=== PATIENT | female | born 1950 | race Caucasian/White ===

== ENCOUNTER → 2018-02-11 14:00 | Outpatient (CLI) | payer MEDICARE, SELFPAY | PROVIDERS: PCP Nurse Practitioner Family; Visit Provider Student in an Organized Health Care Education/Training Program | DX: T84.53XD Infection and inflammatory reaction due to internal right knee prosthesis, subsequent encounter (principal); Z96.651 Presence of right artificial knee joint; M76.31 Iliotibial band syndrome, right leg | CPT/HCPCS: 99213 ==

== ENCOUNTER → 2018-04-01 11:12 | Outpatient (BNVA) | payer MEDICARE, SELFPAY | PROVIDERS: PCP Nurse Practitioner Family; Referring Provider Nurse Practitioner Family; Visit Provider Student in an Organized Health Care Education/Training Program | DX: T84.53XD Infection and inflammatory reaction due to internal right knee prosthesis, subsequent encounter (principal); Z96.651 Presence of right artificial knee joint; M25.561 Pain in right knee | CPT/HCPCS: 99213 ==

== ENCOUNTER → 2018-04-29 10:28 | Outpatient (BNVA) | payer MEDICARE, SELFPAY | PROVIDERS: PCP Nurse Practitioner Family; Referring Provider Nurse Practitioner Family; Visit Provider Student in an Organized Health Care Education/Training Program | DX: T84.53XA Infection and inflammatory reaction due to internal right knee prosthesis, initial encounter (principal); M25.561 Pain in right knee | CPT/HCPCS: 99213 ==

== ENCOUNTER 2018-07-22 10:29 | Outpatient (CLI) | payer MEDICARE, SELFPAY ==
--- NOTE | 2018-07-22 13:15 | DI.RAD_ITS ---
SYMPTOMS/DIAGNOSIS: F/U RIGHT TKA RIGHT KNEE: Comparison is made with July,. There has been no change in the appearance of the right total knee prosthesis or surrounding bone. No joint effusion is visible. IMPRESSION: Stable total knee prosthesis.
== END 2018-07-22 10:49 ==
PROVIDERS: PCP Nurse Practitioner Family; Visit Provider Student in an Organized Health Care Education/Training Program
DX: M17.11 Unilateral primary osteoarthritis, right knee (principal); Z96.651 Presence of right artificial knee joint; Z47.1 Aftercare following joint replacement surgery
CPT/HCPCS: 99213; 73560

== ENCOUNTER 2018-07-22 13:09 | Outpatient (CLI) | payer MEDICARE, SELFPAY | END 2018-07-22 13:29 | PROVIDERS: PCP Nurse Practitioner Family; Referring Provider Nurse Practitioner Family; Visit Provider Student in an Organized Health Care Education/Training Program | DX: M17.11 Unilateral primary osteoarthritis, right knee (principal); T84.53XD Infection and inflammatory reaction due to internal right knee prosthesis, subsequent encounter; Z47.1 Aftercare following joint replacement surgery | CPT/HCPCS: 99213 ==

== ENCOUNTER 2018-11-16 13:23 | Outpatient (CLI) | payer MEDICARE, SELFPAY ==
--- NOTE | 2018-11-16 13:16 | DI.RAD_ITS ---
SYMPTOM/DIAGNOSIS: LT HIP AND LT KNEE PAIN LEFT HIP AND PELVIS: Comparison is made with 04/11/17. The hip joint spaces are well maintained. There is minimal periarticular spurring. Mild sclerosis is seen at the pubic symphysis. There is mild spurring at both SI joints. No bony erosions are seen. There is a lucency in the left iliac wing which may represent overlying bowel gas however it is seen on both views. CT could be performed for further evaluation. LEFT KNEE: There is slight narrowing of the medial femoral tibial joint space. There is no significant periarticular spurring. There is minimal spurring at the patellofemoral joint. There is also spurring at the quadriceps insertion on the patella. No joint effusion is seen. IMPRESSION: Minimal degenerative changes.
== END 2018-11-16 13:43 ==
PROVIDERS: PCP Nurse Practitioner Family; Referring Provider Nurse Practitioner Family; Visit Provider Student in an Organized Health Care Education/Training Program
DX: M25.552 Pain in left hip (principal); M25.562 Pain in left knee; M17.12 Unilateral primary osteoarthritis, left knee; M70.52 Other bursitis of knee, left knee
CPT/HCPCS: 20605; 20610; 73562; 99213; 99214; 73502; J1030; J1040

== ENCOUNTER 2019-01-25 14:17 | Outpatient (CLI) | payer MEDICARE, SELFPAY ==
[2019-01-25 15:51] LABS: Ferritin 65 ng/mL (8-388)
== END 2019-01-25 14:37 ==
PROVIDERS: PCP Nurse Practitioner Family; Visit Provider Nurse Practitioner
DX: M25.50 Pain in unspecified joint (principal)
CPT/HCPCS: 36415; 82728

== ENCOUNTER → 2019-02-08 14:05 | Outpatient (BNVA) | payer MEDICARE, SELFPAY | PROVIDERS: PCP Nurse Practitioner Family; Referring Provider Nurse Practitioner Family; Visit Provider Student in an Organized Health Care Education/Training Program | DX: M23.92 Unspecified internal derangement of left knee (principal) | CPT/HCPCS: 99213 ==

== ENCOUNTER 2019-02-12 07:00 | Outpatient (CLI) | payer MEDICARE, SELFPAY ==
--- NOTE | 2019-02-12 11:50 | DI.MRI_ITS ---
SYMPTOMS/DIAGNOSIS: LEFT KNEE PAIN, LIMITED MOTION MEDIALLY, LEFT KNEE OSTEOARTHRITIS, BURSITIS, KNEE LOCKS, SWELLS, MUSCLE SPASMS LEFT KNEE MRI: MRI examination of the knee was performed using chimney coil due to patient's body habitus and this limits the resolution of the scan. There is a moderate knee joint effusion and there is a small Call's cyst. No significant bony signal abnormality seen. Extensor mechanism grossly intact as visualized, but limited visualization of articular cartilage of the patella. Cruciate ligaments appear intact. There is suspected posterior horn to body medial meniscal tear. The lateral meniscus grossly intact. No significant collateral ligament injury seen. CONCLUSION: Limited scan. Suspect medial meniscal tear.
== END 2019-02-12 07:20 ==
PROVIDERS: PCP Nurse Practitioner Family; Visit Provider Student in an Organized Health Care Education/Training Program
DX: M25.462 Effusion, left knee (principal); M71.22 Synovial cyst of popliteal space [Baker], left knee
CPT/HCPCS: 73721

== ENCOUNTER → 2019-02-15 14:18 | Outpatient (BNVA) | payer MEDICARE, SELFPAY | PROVIDERS: PCP Nurse Practitioner Family; Referring Provider Nurse Practitioner Family; Visit Provider Student in an Organized Health Care Education/Training Program | DX: M23.92 Unspecified internal derangement of left knee (principal); M25.562 Pain in left knee | CPT/HCPCS: 20610; 99213; J1040 ==

== ENCOUNTER 2019-02-15 15:22 | Outpatient (CLI) | payer MEDICARE, SELFPAY ==
[2019-02-15 15:47] LABS: HCT 40.4 % (36.0-46.0); Mean Corp. HGB Concentration 32.2 g/dL (32.0-36.0); Mean Corpuscular Hemoglobin 28.6 pg (27.0-33.0); Mean Corpuscular Volume 88.8 fL (80-95); Mean Platelet Volume 8.8 fL (8.0-11.0); Platelet Count 302 x1000/uL (130-400); RBC 4.55 m/cumm (4.00-5.20); RBC Distribution Width 12.7 % (11.7-14.6)
[2019-02-15 17:42] LABS: ESR 18 mm/hr (0-30)
[2019-02-16 10:50] LABS: Rheumatoid Factor <8 IU/mL (<12.5)
[2019-02-16 14:24] LABS: ANA Interpretation Negative (NEGAT)
== END 2019-02-15 15:42 ==
PROVIDERS: PCP Nurse Practitioner Family; Visit Provider Student in an Organized Health Care Education/Training Program
DX: M25.562 Pain in left knee (principal); M23.92 Unspecified internal derangement of left knee
CPT/HCPCS: 20610; 36415; 85027; 85652; 99213; 86038; 86431; J1040

== ENCOUNTER → 2019-03-29 13:27 | Outpatient (BNVA) | payer MEDICARE, SELFPAY | PROVIDERS: PCP Nurse Practitioner; Referring Provider Nurse Practitioner Family; Visit Provider Student in an Organized Health Care Education/Training Program | DX: M17.12 Unilateral primary osteoarthritis, left knee (principal) | CPT/HCPCS: 99212; 99213 ==

== ENCOUNTER 2019-04-26 01:17 | Outpatient (CLI) | payer MEDICARE, SELFPAY ==
--- NOTE | 2019-04-26 14:45 | DI.MAMMO_ITS ---
EXAM: MAMMO SCREENING CLINICAL HISTORY: screening,z12.39 TECHNIQUE: Mammograms were interpreted according to the usual protocol including computer analysis w [employer] CAD system, tomosynthesis and C-view imaging. COMPARISON: [id number] FINDINGS: The breasts are composed of heterogeneously dense tissue, which may obscure small masses, breast dens ity category C. There are no suspicious masses or suspicious microcalcifications. There has been no significant chagne when compared with prior images. IMPRESSION: Category 1, negative mammogram. Routine yearly screening is recommended. BI-RADS Cat 1 - Negative Breast Density - Category C - Heterogeneously dense
== END 2019-04-26 01:37 ==
PROVIDERS: PCP Nurse Practitioner; Visit Provider Nurse Practitioner
DX: Z12.31 Encounter for screening mammogram for malignant neoplasm of breast (principal)
CPT/HCPCS: 77063; 77067

== ENCOUNTER 2019-05-27 13:54 | Outpatient (CLI) | payer MEDICARE, SELFPAY ==
--- NOTE | 2019-05-27 14:00 | DI.RAD_ITS ---
EXAM: XR CHEST 2V PA AND LATERAL CLINICAL HISTORY: cough, upper respiratory infection, J06.9. TECHNIQUE: 2D digital imaging was performed. COMPARISON: PORTABLE CHEST ONE VIEW from 08/10/2017 FINDINGS: LUNGS: Clear. No pleural abnormality seen. HEART: Normal. MEDIASTINUM: Normal. OTHER FINDINGS:Normal. IMPRESSION: No acute pulmonary findings.
== END 2019-05-27 14:14 ==
PROVIDERS: PCP Nurse Practitioner; Visit Provider Internal Medicine
DX: J06.9 Acute upper respiratory infection, unspecified (principal); R05 Cough
CPT/HCPCS: 71046

== ENCOUNTER 2019-05-30 15:34 | Emergency (ER) | payer MEDICARE, SELFPAY ==
[2019-05-30 15:56] VITALS: BP 164/86; PULSE 80; RESP 18; TEMP 36.6; O2SAT 98
--- NOTE | 2019-05-30 16:28 | ED.GENADUL_ITS ---
Discharge Plan Disposition Patient Disposition: HOME Condition: Stable Discharge Details Chief Complaint: Orthopedic Clinical Impression: Primary osteoarthritis of left knee Primary Care Provider: Katie Schafer ED Provider: Diogo Driscoll Home Meds and New Rx's Prescriptions: Continued aspirin [Adult Low Dose Aspirin] 81 mg tablet,delayed release (DR/EC) 81 mg PO DAILY RF: 0 hydroxyzine HCl 25 mg tablet 12.5 mg PO HS PRN (Reason: itching) Qty: 90 RF: 3 pantoprazole [Protonix] 40 mg tablet,delayed release (DR/EC) 40 mg PO DAILY Qty: 90 RF: 3 paroxetine HCl 40 mg tablet 40 mg PO DAILY Qty: 90 RF: 3 mometasone [Nasonex] 50 mcg/actuation spray,non-aerosol 2 spray NS DAILY Qty: 3 RF: 3 azithromycin 250 mg tablet See Rx Instructions PO .COMPLEX Qty: 6 RF: 0 doxycycline hyclate 100 mg tablet 100 mg PO BID Qty: 14 RF: 0 multivitamin [Multi-Day] 1 EACH tablet 1 ea PO DAILY RF: 0 calcium carbonate-vitamin D3 1 EACH tablet 1 ea PO DAILY RF: 0 VITAMIN B COMPLEX 1 EACH tablet 1 ea PO DAILY RF: 0 Cane Qty: 1 RF: 0 acetaminophen [Mapap Extra Strength] 500 MG tablet 1,000 mg PO Q8H Qty: 100 RF: 3 sennosides [Senokot] 1 TAB tablet 1 tab PO BID PRN PRNRF: 0 Discharge Instructions Instructions: Osteoarthritis (ED) Additional Instructions: I placed you on our follow up list to try and expedite an appointment with orthopedics you can take 1000mg tylenol every 6 hours try using lidocaine patches if you have high fevers, redness of the knee or you feel more ill return to the emergency department Medical Decision Making 68 yo female with hx of osteoarthritis in the left knee and prior right knee replacement complicated by infection who comes in with chief complaint of left knee pain for months. Has had injections in the past that have helped with ortho last being in the summer. Denies any falls, trauma, rashes or fevers/chills. She has an effusion on exam of the left knee without erythema, warmth and does have full rom of the knee. Has pain with palpation to the anterior knee. I suspect her pain is due to her osteoarthritis and will have her f/u with ortho for possible repeat injection. No findings on exam to suggest septic joint so do not feel arthrocentesis indicated. No trauma so doubt fracture and do not feel xray indicated. Will d/c with return precautions Differential Diagnosis Differential Diagnosis: osteoarthritis, RA HPI General Mode of arrival: wheelchair . Date/Time Provider Initiated Documentation: 05/30/19 15:36 . Limitations to Documentation: no limitations . Information obtained by: patient . History of Present Illness 68 year old F presents to the emergency department with the chief complaint of left knee pain, described as moderate, Quality is described as aching, Patient started experiencing this month(s) (2) and it has been constant. No relieving factors improve symptom(s), No exacerbating factors reported . Related Data Home Medications Medication Instructions Recorded Confirmed calcium carbonate-vitamin D3 1 ea PO DAILY 10/10/12 05/30/19 multivitamin [Multi-Day] 1 ea PO DAILY 10/10/12 05/30/19 Vitamin B Complex 1 ea PO DAILY 04/26/13 05/19/19 acetaminophen [Mapap Extra 1,000 mg PO Q8H #100 tab 07/10/17 05/30/19 Strength] sennosides [Senokot] 1 tab PO BID PRN PRN tab 08/14/17 05/30/19 aspirin 81 mg tablet,delayed 81 mg PO DAILY 03/26/19 05/30/19 release hydroxyzine HCl 25 mg tablet 12.5 mg PO HS PRN #90 tab 03/26/19 05/30/19 mometasone 50 mcg/actuation nasal 2 spray NS DAILY #3 spray 03/26/19 05/30/19 spray pantoprazole 40 mg tablet,delayed 40 mg PO DAILY #90 tab 03/26/19 05/30/19 release paroxetine HCl 40 mg tablet 40 mg PO DAILY #90 tab 03/26/19 05/30/19 azithromycin 250 mg tablet See Rx Instructions PO .COMPLEX #6 05/19/19 05/30/19 tab doxycycline hyclate 100 mg tablet 100 mg PO BID #14 tab 05/24/19 05/30/19 Previous Rx's Medication Instructions Recorded acetaminophen [Mapap Extra 1,000 mg PO Q8H #100 tab 07/10/17 Strength] sennosides [Senokot] 1 tab PO BID PRN PRN tab 08/14/17 hydroxyzine HCl 25 mg tablet 12.5 mg PO HS PRN #90 tab 03/26/19 mometasone 50 mcg/actuation nasal 2 spray NS DAILY #3 spray 03/26/19 spray pantoprazole 40 mg tablet,delayed 40 mg PO DAILY #90 tab 03/26/19 release paroxetine HCl 40 mg tablet 40 mg PO DAILY #90 tab 03/26/19 azithromycin 250 mg tablet See Rx Instructions PO .COMPLEX #6 05/19/19 tab doxycycline hyclate 100 mg tablet 100 mg PO BID #14 tab 05/24/19 Allergies Allergy/AdvReac Type Severity Reaction Status Date / Time Sulfa (Sulfonamide Allergy Mild PRURITIS Unverified 05/30/19 15:59 Antibiotics) amoxicillin trihydrate AdvReac Severe DIARRHEA Unverified 05/30/19 15:59 [From Augmentin] morphine AdvReac Severe HEART Unverified 05/30/19 15:59 PALPITATIONS General Stated Complaint: Orthopedic DUSTY: 4 Review of Systems All systems reviewed & are unremarkable except as noted in HPI and below Constitutional Constitutional: Denies chills, Denies fever(s) and Denies weakness Cardiovascular Cardiovascular: Denies chest pain and Denies dyspnea Respiratory Respiratory: Denies dyspnea Gastrointestinal Gastrointestinal: Denies abdominal pain, Denies nausea and Denies vomiting Neurologic Neurologic: Denies weakness [facility] [place] Social History Smoking/Tobacco Use Status: Never Alcohol Intake: never Drug use: Never Household members: spouse Housing: house Communication Needs: Corrective Lenses Do you need help understanding health information?: Often Sexually active: Yes Do you think of yourself as: straight/heterosexual Current gender identity: female What is your relationship status?: Panel score (0-1 are the most socially isolated patients): 1 Do you feel safe at home: Yes Do you feel safe in your relationship?: Yes Exam Const General: no acute distress Orientation: alert HENMT Head: normal to inspection Ears: external ears normal General nose exam: external nose normal Mouth: moist mucous membranes Eyes General: appearance normal, both eyes and all related structures Neck Neck: normal visual inspection Resp Effort & Inspection: normal respiratory effort and able to speak in complete sentences Cardio Rate: regular rate Skin General skin exam: no rashes or lesions noted Neuro General: alert and oriented x3 Extrem General: full ROM and normal capillary refill Psych Mental Status: mental status grossly normal Course Vital Signs Vital signs: Vital Signs Temperature 36.6 C 05/30/19 15:56 Pulse 80 05/30/19 15:56 Respiratory Rate 18 05/30/19 15:56 Blood Pressure 164/86 H 05/30/19 15:56 Pulse Oximetry 98 05/30/19 15:56 Temperature 36.6 C 05/30/19 15:56 Temperature Source Temporal Artery Scan 05/30/19 15:56 Pulse 80 05/30/19 15:56 Respiratory Rate 18 05/30/19 15:56 Respiratory Effort Non-Labored 05/30/19 15:56 Blood Pressure 164/86 H 05/30/19 15:56 Blood Pressure Position Sitting 05/30/19 15:56 Pulse Oximetry 98 05/30/19 15:56 Oxygen Delivery Method Room Air 05/30/19 15:56 Oxygen Flow Rate 0 05/30/19 15:56 Pain Level 8 05/30/19 15:56 Comment 05/30/19 15:56
[2019-05-30] MEDS: Lidocaine 5% Patch 1 PATCH TP (16:35)
== END 2019-05-30 16:40 | disposition home or self-care (01) ==
PROVIDERS: Emergency Provider Emergency Medicine; PCP Nurse Practitioner
DX: M17.12 Unilateral primary osteoarthritis, left knee (principal); M25.462 Effusion, left knee
CPT/HCPCS: 99283

== ENCOUNTER 2019-06-10 08:20 | Outpatient (CLI) | payer MEDICARE, SELFPAY ==
--- NOTE | 2019-06-10 08:37 | DI.RAD_ITS ---
EXAM: XR KNEE LT 4V AP,LAT,STEPH,PAT INDICATION: new left knee pain after fall. TECHNIQUE: 2D digital imaging was performed. FINDINGS: The joint spaces are well maintained. There is minimal periarticular spurring. Spurring is noted at the quadriceps insertion on the patella. There is a tiny focus of air in the suprapatellar region which could be secondary to joint injection. IMPRESSION: Mild degenerative changes.
== END 2019-06-10 08:40 ==
PROVIDERS: PCP Nurse Practitioner; Referring Provider Nurse Practitioner; Visit Provider Student in an Organized Health Care Education/Training Program
DX: M25.562 Pain in left knee (principal); M17.12 Unilateral primary osteoarthritis, left knee; M23.92 Unspecified internal derangement of left knee
CPT/HCPCS: 20610; 99213; 73564; J1040

== ENCOUNTER 2019-06-10 08:54 | Outpatient (REF) | payer MEDICARE, SELFPAY ==
[2019-06-10 10:00] LABS: Clarity CLEAR; Mononuclear Cells 91 % (0-0); Nucleated Cells 607 /MM3 (0-0); Polynuclear Cells 9 % (0-0); Source L KNEE
== END 2019-06-10 09:14 ==
LOC: LBN 08:54
PROVIDERS: PCP Nurse Practitioner; Visit Provider Student in an Organized Health Care Education/Training Program
DX: M25.562 Pain in left knee (principal)
CPT/HCPCS: 87070; 87205; 89051; 89060

== ENCOUNTER 2019-06-21 01:02 | Outpatient (CLI) | payer MEDICARE, SELFPAY ==
--- NOTE | 2019-06-21 10:51 | DI.MRI_ITS ---
EXAM: MR LOWER JOINT LT WO CLINICAL HISTORY: PAIN, INTERNAL DERANGEMENT, M23.92. TECHNIQUE: Multiplanar multisequence MRI was performed. COMPARISON: MRI - BRAIN WO CONTRAST from 08/22/2014 XR KNEE LT 4V AP,LAT,STEPH,PAT from 06/10/2019 FINDINGS: There is a small joint effusion and tiny Call's cyst. The cruciate and collateral ligaments and ext ensor mechanism appear intact. There is some edema seen anterior to the patella. The findings do yuridia ear stable when compared with the previous exam. There are degenerative signal changes in both menis ci but no visible focal tear. There is peripheral displacement of the medial meniscus, consistent wi th degenerative change. There is mild spurring from the medial femoral condyle and medial tibial darcy teau. There is cartilage thinning over the medial femoral condyle and medial tibial plateau. There is mild adjacent bone edema. The findings appear similar to the previous exam. IMPRESSION: Small joint effusion and tiny Call's cyst. 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 No evidence of an internal derangement.
== END 2019-06-21 01:22 ==
PROVIDERS: PCP Nurse Practitioner; Visit Provider Student in an Organized Health Care Education/Training Program
DX: M25.562 Pain in left knee (principal); M23.92 Unspecified internal derangement of left knee; M25.462 Effusion, left knee; M71.22 Synovial cyst of popliteal space [Baker], left knee; M17.12 Unilateral primary osteoarthritis, left knee; M94.262 Chondromalacia, left knee
CPT/HCPCS: 73721

== ENCOUNTER → 2019-07-15 10:25 | Outpatient (BNVA) | payer MEDICARE, SELFPAY | PROVIDERS: PCP Nurse Practitioner; Referring Provider Nurse Practitioner; Visit Provider Student in an Organized Health Care Education/Training Program | DX: S83.242A Other tear of medial meniscus, current injury, left knee, initial encounter (principal); X50.0XXA Overexertion from strenuous movement or load, initial encounter | CPT/HCPCS: 99213 ==

== ENCOUNTER 2019-07-23 11:01 | Day surgery (SDC) | payer MEDICARE, SELFPAY ==
[2019-07-23] VITALS (7 sets, daily range): BP systolic 109–155; BP diastolic 46–83; PULSE 82–97; RESP 11–16; TEMP 36.1–36.3; O2SAT 94–98
[2019-07-23] MEDS: Lactated Ringers 1,000 ML 80 ML IV (11:41)
[2019-07-23] MEDS: ceFAZolin 2 GM/50 ML BAG IVPB (13:35)
[2019-07-23] MEDS: EPINEPHrine 30 MG/30 ML VIAL (13:58)
[2019-07-23] MEDS: Bupivacaine 0.5% Pres-Free 30 ML VIAL (13:59)
--- NOTE | 2019-07-23 14:28 | W.PM.DSUDISC ---
Discharge Plan Disposition Patient Disposition: HOME Condition: Good Discharge Details Reason For Visit: L medial meniscus tear Attending Provider: Frandy Trevino Primary Care Provider: Katie Schafer Home Meds and New Rx's Prescriptions: New hydrocodone-acetaminophen 5-325 mg tablet 1 tab PO Q8H PRN PRN (Reason: pain) Qty: 6 RF: 0 meloxicam 7.5 mg tablet 7.5 mg PO BID Qty: 60 RF: 0 Continued aspirin [Adult Low Dose Aspirin] 81 mg tablet,delayed release (DR/EC) 81 mg PO DAILY RF: 0 hydroxyzine HCl 25 mg tablet 12.5 mg PO HS PRN (Reason: itching) Qty: 90 RF: 3 pantoprazole [Protonix] 40 mg tablet,delayed release (DR/EC) 40 mg PO DAILY Qty: 90 RF: 3 paroxetine HCl 40 mg tablet 40 mg PO DAILY Qty: 90 RF: 3 mometasone [Nasonex] 50 mcg/actuation spray,non-aerosol 2 spray NS DAILY Qty: 3 RF: 3 multivitamin [Multi-Day] 1 EACH tablet 1 ea PO DAILY RF: 0 calcium carbonate-vitamin D3 1 EACH tablet 1 ea PO DAILY RF: 0 VITAMIN B COMPLEX 1 EACH tablet 1 ea PO DAILY RF: 0 Cane Qty: 1 RF: 0 sennosides [Senokot] 1 TAB tablet 1 tab PO BID PRN PRNRF: 0 ascorbic acid (vitamin C) [Vitamin C] 1,000 mg Tablet 1,000 mg PO PRN PRNRF: 0 Changed acetaminophen [Mapap Extra Strength] 500 MG tablet 500 mg PO Q6H Qty: 100 RF: 3 Discharge Instructions Additional Instructions: Activity: You should begin moving as soon as possible. You may work on flexion but also equally maintain extension. You may bear weight as tolerated, using crutches only for support/comfort. You should apply ice to help with swelling and elevate when possible (especially in the first few days). You should apply ice to assist with swelling and pain. Medications: - Rarely does this require any stronger pain medications, but it may for the first few days or with PT. Hydrocodone has been called in. - Recommend to take up to 500mg of Acetaminophen (Tylenol) every 6 hours and Meloxciam 7.5mg twice a day as needed. Follow-up: 10-14 days Referrals: Frandy Trevino MD [ [facility] STAFF PHYSICIAN] - Equipment/Supplies: Partial Weight Bearing Crutches Activity:: Elevate Remove Dressings/Wound Care:: 72 hours Shower/Bathe:: 72 hours Diet:: As Tolerated Discharge Orders Discharge Orders: Discharge Order (Routine); Ordered 07/23/19 Ordered By: Frandy Trevino DS: Diagnosis Discharge Diagnosis (1) Acute medial meniscal injury of left knee: Status: Acute
--- NOTE | 2019-07-23 21:59 | W.PM.OP ---
Date of service: 07/23/19 Time of Service: 14:59 Operative Note Operative Note DATE OF PROCEDURE: 07/23/19 PRE-OP DIAGNOSIS: Left knee medial meniscal tear POST-OP DIAGNOSIS: same PROCEDURE: Left knee partial medial meniscectomy SURGEON: Frandy Trevino ANESTHESIA: GETA ESTIMATED BLOOD LOSS: 0 PATHOLOGY: none sent COMPLICATIONS: None Patient was transported to: PACU Patient's condition: stable Indications: I have seen Laura in clinic for symptoms of a meniscus tear. This was confirmed based on MRI and exam findings. Nonoperative measures were exhausted but disability and pain persisted. I discussed knee arthroscopy with meniscal intervention with the patient. I reviewed the risks of the procedure to include, but not limited to, bleeding, infection, pain, stiffness, damage to nerves or vessels, recurrence, blood clot. Despite these risks, the patient elected to proceed. Findings: A diagnostic arthroscopy was performed with the following findings: Suprapatellar Pouch: No significant inflammation, no loose bodies Medial Compartment: Complex medial meniscal tear, intact meniscal root, some mild fissuring and fraying representing grade 1 changes with some focal areas of grade II chondromalacia, no loose bodies Notch: ACL and PCL were intact Lateral Compartment: No meniscal tear, intact meniscal root, no significant chondromalacia or signs of arthritis, no loose bodies Patellofemoral Compartment: Mild chondral changes seen over the patella, mainly at the apex, no apparent patellar maltracking Procedure Description: Laura was greeted in the preoperative holding area where the correct side was identified and marked. The consent was reviewed with the patient and signed. The history and physical was updated. All questions were answered. Laura was taken back to the operating room. The patient was placed into the supine position on the operating room table. A nonsterile tourniquet was placed high onto the leg but not used. All bony prominences were well padded. Prophylactic antibiotics in the form of cefazolin were administered. The left leg was then prepped with Chloraprep and draped in a standard fashion with stockinette and extremity drape. A timeout to confirm correct identity, side and site, procedure, allergies, anesthesia, and medical concerns was performed. The leg was placed into a pneumatic leg chopra, [id number]. A standard lateral portal was made at the lateral border of the patella tendon in line with the inferior pole of the patella, soft spot. The skin and deep tissue was incised sharply and the blunt trochar was inserted atraumatically. A diagnostic arthroscopy was performed and the findings are listed above. The suprapatellar pouch had no significant inflammatory change. The patellofemoral articulation showed mild arthritic changes over the apex as well as good tracking. The lateral gutter had no loose bodies and the medial gutter had no loose bodies. The knee was brought into some valgus stress in extension to open the medial compartment. A medial portal was made, localized by a spinal needle. The portal was created with an #11 blade through skin and capsule under direct visualization avoiding any meniscal injury. A probe was then inserted into the medial compartment. The medial compartment was fully inspected. The chondral surface of the tibia showed minimal cartilage changes and the surface of the femur showed some grade I/II chondromalacia. The medial meniscus had a complex meniscal tear involving the posterior horn with both a larger radial component and a horizontal component with some fraying. After evaluation, the meniscus was debrided down to a stable base using a series of biters and arthroscopic gonzalo. It was probed afterwards to confirm that the tear had been removed and the meniscus was stable. The notch was then inspected which showed an intact ACL and an intact PCL. The leg was then brought into a figure of 4 position. The lateral compartment was fully inspected with the arthroscope and a probe. The chondral surface of the lateral femur showed no significant chondromalacia. The chondral surface of the lateral tibia showed no significant chondromalacia. The lateral meniscus had no meniscal tear. The arthroscope was brought back into the suprapatellar pouch and the leg was in full extension. The knee was thoroughly irrigated with the arthroscopic fluid on high flow and pressure. Inflow was stopped and excess fluid was removed. The wounds were closed with 4-0 Nylon. They were dressed with Xeroform, 4x4 gauze, ABD pad, Kerlix and an AFSHAN wrap. A cryo-cuff was applied. The patient tolerated the procedure well and was returned to the Same Day Surgery area in a stable condition suffering no known complication.
== END 2019-07-23 16:10 | disposition home or self-care (01) ==
PROVIDERS: PCP Nurse Practitioner; Visit Provider Student in an Organized Health Care Education/Training Program
PROC: (CPT 29870; principal; 2019-07-23 14:00)
DX: S83.232A Complex tear of medial meniscus, current injury, left knee, initial encounter (principal); X50.1XXA Overexertion from prolonged static or awkward postures, initial encounter; M94.262 Chondromalacia, left knee; K21.9 Gastro-esophageal reflux disease without esophagitis
CPT/HCPCS: 29881; J0131; J0690; J1100; J1885; J2001; J2405; J2704; J3010

== ENCOUNTER → 2019-08-06 09:37 | Outpatient (BNVA) | payer MEDICARE, SELFPAY | PROVIDERS: PCP Nurse Practitioner; Referring Provider Nurse Practitioner; Visit Provider Student in an Organized Health Care Education/Training Program | DX: S83.242D Other tear of medial meniscus, current injury, left knee, subsequent encounter (principal); X58.XXXD Exposure to other specified factors, subsequent encounter ==

== ENCOUNTER → 2019-08-27 09:46 | Outpatient (BNVA) | payer MEDICARE, SELFPAY | PROVIDERS: PCP Nurse Practitioner; Referring Provider Nurse Practitioner; Visit Provider Student in an Organized Health Care Education/Training Program | DX: S83.8X2D Sprain of other specified parts of left knee, subsequent encounter (principal); X58.XXXD Exposure to other specified factors, subsequent encounter; M17.12 Unilateral primary osteoarthritis, left knee | CPT/HCPCS: 20610; J1040 ==

== ENCOUNTER → 2019-10-29 10:26 | Outpatient (BNVA) | payer MEDICARE, SELFPAY | PROVIDERS: PCP Nurse Practitioner; Referring Provider Nurse Practitioner; Visit Provider Student in an Organized Health Care Education/Training Program | DX: S83.8X2D Sprain of other specified parts of left knee, subsequent encounter (principal); X58.XXXD Exposure to other specified factors, subsequent encounter; M17.12 Unilateral primary osteoarthritis, left knee; M70.52 Other bursitis of knee, left knee; Z98.890 Other specified postprocedural states | CPT/HCPCS: 99213 ==

== ENCOUNTER → 2019-12-31 10:52 | Outpatient (BNVA) | payer OTHER, SELFPAY | PROVIDERS: PCP Nurse Practitioner; Referring Provider Nurse Practitioner; Visit Provider Student in an Organized Health Care Education/Training Program | DX: S83.8X2D Sprain of other specified parts of left knee, subsequent encounter (principal); X58.XXXD Exposure to other specified factors, subsequent encounter | CPT/HCPCS: 99213 ==

== ENCOUNTER 2020-03-23 03:48 | Outpatient (CLI) | payer MEDICARE, SELFPAY ==
[2020-03-23 11:35] LABS: Hemoglobin A1C 5.4 % (<5.7)
[2020-03-23 12:30] LABS: Calculated LDL 160 mg/dL (<100); Cholesterol 250 mg/dL (<200); HDL Cholesterol 49 mg/dL (40-60); Triglyceride 205 mg/dL (<150)
== END 2020-03-23 04:08 ==
PROVIDERS: PCP Nurse Practitioner; Visit Provider Nurse Practitioner
DX: E78.5 Hyperlipidemia, unspecified (principal); E16.2 Hypoglycemia, unspecified
CPT/HCPCS: 36415; 80061; 83036

== ENCOUNTER 2020-04-28 02:57 | Outpatient (CLI) | payer MEDICARE, SELFPAY ==
--- NOTE | 2020-04-28 08:15 | DI.MAMMO_ITS ---
EXAM: MAMMO SCREENING CLINICAL HISTORY: screening,Z12.39 TECHNIQUE: Mammograms were interpreted according to the usual protocol including computer analysis w [employer] CAD system, tomosynthesis and C-view imaging. COMPARISON: 2010 through 2018 FINDINGS: The breasts are composed of heterogeneously dense fibroglandular densities, Breast Density category C . No suspicious masses or suspicious microcalcifications are seen. There is a benign-appearing circums cribed nodule seen in the upper outer quadrant of the left breast. No skin thickening or abnormal axillary lymph nodes are seen. There has been no significant change from prior exams. IMPRESSION: BI-RADS Cat 2 - Benign Findings Yearly screening mammography is recommended. Breast Density Category C, heterogeneously Dense. The mammogram demonstrates the patient's breast tissue is dense. Dense breast tissue is very common a nd is not abnormal but dense breast tissue can make it harder to find cancer on a mammogram. Also, de nse breast tissue may increase breast cancer risk. This information about the result of the mammogram report was provided to the patient to raise their awareness. Use this report when you speak with the patient about their risks for breast cancer, which includes their family history. At that time, you may recommend additional screening tests (Ultrasound or MRI) as they might be useful based on their r isk. A negative radiographic report should not delay biopsy if a dominant or clinically suspicious mass is present. Up to ten percent of cancers are not identified on mammography. A negative report may reinforce clinical impression. Adenosis and dense breasts may obscure an underlying neoplasm. False positive reports average 6 to 10%.
== END 2020-04-28 03:17 ==
PROVIDERS: PCP Nurse Practitioner; Visit Provider Nurse Practitioner
DX: Z12.31 Encounter for screening mammogram for malignant neoplasm of breast (principal); N63.21 Unspecified lump in the left breast, upper outer quadrant
CPT/HCPCS: 77063; 77067

== ENCOUNTER 2020-05-04 01:29 | Outpatient (CLI) | payer MEDICARE, SELFPAY ==
--- NOTE | 2020-05-04 | DI.US_ITS ---
EXAM: US PELVIS TRANSVAGINAL CLINICAL HISTORY: RLQ ABD PAIN,R10.31 TECHNIQUE: Ultrasound performed using standard protocol. COMPARISON: US LEFT EXTREMITY ULTRASOUND from 10/19/2012 US RIGHT EXTREMITY ULTRASOUND from 08/07/2017 FINDINGS: Pelvic ultrasound was performed transabdominally and transvaginally. Uterus has reportedly been surg ically removed. No free fluid identified in the pelvis. The ovaries are presumptively identified, r ight ovary contains multiple small predominantly cystic lesions, mural nodularity/wall thickening not excluded on this examination. Doppler evaluation is unremarkable. Left ovary contains a 2.3 cm in diameter simple cyst cyst and probably a couple of other smaller cyst s. No Doppler abnormality seen. Limited scanning of the kidneys is unremarkable. IMPRESSION: Bilateral cystic ovarian lesions, the right ovarian lesion contains multiple cystic spaces and there is a question of wall thickening and/or mural nodularity, malignancy not excluded, additional evaluat ion with biopsy should be considered in this postmenopausal patient. DATA REPOSITORY:
== END 2020-05-04 01:49 ==
PROVIDERS: PCP Nurse Practitioner; Visit Provider Nurse Practitioner
DX: R10.31 Right lower quadrant pain (principal); N83.292 Other ovarian cyst, left side; N83.201 Unspecified ovarian cyst, right side
CPT/HCPCS: 76830; 76856

== ENCOUNTER 2020-05-11 00:51 | Outpatient (CLI) | payer MEDICARE, SELFPAY ==
[2020-05-19 16:51] LABS: CA 125 10.2 U/mL (<30)
== END 2020-05-11 01:11 ==
PROVIDERS: PCP Nurse Practitioner; Visit Provider Obstetrics & Gynecology
DX: N83.292 Other ovarian cyst, left side (principal); N83.291 Other ovarian cyst, right side; R10.31 Right lower quadrant pain
CPT/HCPCS: 36415; 86304

== ENCOUNTER 2020-06-13 02:26 | Outpatient (CLI) | payer MEDICARE, SELFPAY ==
--- NOTE | 2020-06-13 08:30 | DI.CT_ITS ---
EXAM: CT ABDOMEN PELVIS W INDICATION: COMPLEX CYST RT OVARY,N83.291,RLQ PAIN. COMPARISON: CT UPPER ABD WITH CONTRAST (P) from 12/30/2011 TECHNIQUE: FINDINGS: CT examination of the abdomen and pelvis was performed with a bolus infusion of 100 cc of Omnipaque 3 50. Images obtained through the lung bases are unremarkable. The liver is unremarkable in appearance. Gallbladder and bile ducts are CT normal. Pancreas appears normal. Spleen is unremarkable in appearance. Adrenals appear normal. There are 3 renal cysts noted on the left, the largest measuring about 35 millimeters in diameter. N o other renal mass. No hydronephrosis, nephrolithiasis, or ureterolithiasis. Urinary bladder is kellee rly empty but appears unremarkable. Abdominal aorta is of normal diameter and no major vascular abnormality is seen. No abdominal wall hernia. Prior anterior abdominal wall hernia repair noted. No abdominal or pelvic adenopathy. Previous ultrasound May 04 showed left ovarian simple cyst measuring about 23 millimeters in di ameter, this is again seen on today's CT and measures about 26 millimeters in diameter. Complex righ t ovarian mass was previously noted and is seen also by CT, this measures about 25 millimeters in arnold meter. Biopsy was previously recommended, please correlate whether tissue sampling has been performe d. I would note that there is a nonspecific calcification associated with the right ovary. Appendix is not specifically visualized. The cecum appears contracted, this may represent a propulsi ve contraction, cecal wall cannot be adequately evaluated. Remainder of the colon is unremarkable ap pearance with no evidence of diverticulitis or obstruction. The terminal ileum is unremarkable appea hammad. IMPRESSION: Right ovarian mass, this was more reliably characterized on prior ultrasound examination of April 07. Appearance is nonspecific and neoplastic process is not excluded. RADIATION DOSE DELIVERED: 1,192.78mGy.cm Total DLP 1,192.78mGy.cm Total DLP
[2020-06-13] MEDS: Breeza Beverage 473 ML BTL PO (09:01)
[2020-06-13] MEDS: Omnipaque 350 MG/ML 50 ML BTL IJ (09:02)
[2020-06-13] MEDS: Omnipaque 350 MG/ML 100 ML BTL IJ (09:03)
[2020-06-13] MEDS: Normal Saline - Diluent 50 ML VIAL IV (09:04)
== END 2020-06-13 02:46 ==
PROVIDERS: PCP Nurse Practitioner; Visit Provider Obstetrics & Gynecology Gynecologic Oncology
DX: N83.8 Other noninflammatory disorders of ovary, fallopian tube and broad ligament (principal); N83.291 Other ovarian cyst, right side; R10.31 Right lower quadrant pain; N28.1 Cyst of kidney, acquired
CPT/HCPCS: 74177; J3490; Q9967

== ENCOUNTER 2020-09-22 11:42 | Outpatient (CLI) | payer MEDICARE, SELFPAY ==
--- NOTE | 2020-09-22 11:44 | DI.RAD_ITS ---
EXAM: XR KNEE LT 3V AP,LAT,STEPH CLINICAL HISTORY: L knee pain. TECHNIQUE: 2D digital imaging was performed. COMPARISON: MR MR LOWER JOINT LT WO from 06/21/2019 FINDINGS: There is moderate to severe narrowing of the medial femoral tibial joint. There is periarticular spu rring and sclerosis. There is mild varus angulation at the knee. There is mild spurring at the mujica llofemoral joint. There is an enthesophyte at the quadriceps insertion on the patella. 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 DATA REPOSITORY: RADIATION DOSE DELIVERED:
== END 2020-09-22 11:43 | disposition home or self-care (01) ==
LOC: DIORS 11:42
PROVIDERS: PCP Nurse Practitioner; Referring Provider Nurse Practitioner; Visit Provider Student in an Organized Health Care Education/Training Program
DX: M17.12 Unilateral primary osteoarthritis, left knee (principal); M25.562 Pain in left knee
CPT/HCPCS: 20610; 73562; 99213; J1040

== ENCOUNTER → 2020-12-08 13:07 | Outpatient (BNVA) | payer OTHER, SELFPAY | PROVIDERS: PCP Nurse Practitioner; Referring Provider Nurse Practitioner; Visit Provider Physical Therapy Assistant | DX: R13.10 Dysphagia, unspecified (principal); Z12.11 Encounter for screening for malignant neoplasm of colon; Z86.010 Personal history of colon polyps | CPT/HCPCS: 99214 ==

== ENCOUNTER 2020-12-25 02:39 | Outpatient (CLI) | payer OTHER, SELFPAY ==
[2020-12-25 12:13] LABS: Source Nasal/Nares
[2020-12-25 19:08] LABS: COVID-19 PCR Negative (Negative)
== END 2020-12-25 02:40 | disposition home or self-care (01) ==
LOC: LBO 02:39
PROVIDERS: PCP Nurse Practitioner; Visit Provider Surgery
DX: Z20.822 Contact with and (suspected) exposure to COVID-19 (principal); Z01.818 Encounter for other preprocedural examination
CPT/HCPCS: 87635

== ENCOUNTER → 2021-01-26 10:07 | Outpatient (BNVA) | payer OTHER, SELFPAY | PROVIDERS: PCP Nurse Practitioner; Referring Provider Nurse Practitioner; Visit Provider Student in an Organized Health Care Education/Training Program | DX: M17.12 Unilateral primary osteoarthritis, left knee (principal) | CPT/HCPCS: 99213 ==

== ENCOUNTER 2021-03-13 03:42 | Outpatient (CLI) | payer OTHER, SELFPAY ==
[2021-03-13 10:08] LABS: Source Nasal/Nares
[2021-03-13 13:25] LABS: COVID-19 PCR Negative (Negative)
== END 2021-03-13 03:43 | disposition home or self-care (01) ==
PROVIDERS: PCP Nurse Practitioner; Visit Provider Surgery
DX: Z20.822 Contact with and (suspected) exposure to COVID-19 (principal); Z01.818 Encounter for other preprocedural examination
CPT/HCPCS: 87635

== ENCOUNTER 2021-03-14 09:02 | Day surgery (SDC) | payer OTHER, SELFPAY ==
--- NOTE | 2021-03-14 06:50 | W.PREOPHP ---
Date of service: 03/14/21 Time of Service: 10:26 Assessment and Plan Assessment and plan (1) Dysphagia: Status: Acute (2) Encounter for colonoscopy due to history of adenomatous colonic polyps: Status: Acute Assessment and plan: The patient is here for Colonoscopy pre-op. Her last screening was in 2016 and was remarkable for tubular adenomatous polyp. She has no family history of colon cancer. She has not had any bowel habit changes. -Discussed colonoscopy bowel prep as well as the procedure. Discussed possible complications of the procedure to include bleeding, pain, perforation, missed small lesion/polyp, sore throat, aspiration and adverse reaction to the medications. Questions were answered to patient?s satisfaction. No guarantees were implied or given. Dysphagia that has been present for over 1 year, which is mostly associated to meats. Denies heart burn symptoms. -Discussed Upper endoscopy procedure and the need to be NPO after midnight the night prior. Discussed possible complications of the procedure to include bleeding, pain, perforation, missed small lesion/polyp/ulcers, sore throat, aspiration and adverse reaction to the medications or sedation. Questions were answered to patient?s satisfaction. No guarantees were implied or given. I spent 30 minutes in reviewing the record, seeing the patient, providing patient education, answering patient's questions and documenting in the medical record. P// Colonoscopy and EGD under sedation. History of Present Illness Narrative: 70 y/o female with history of GERD (s/p gastropexy in 2010), depression and JESSICA presents for colonoscopy screening pre-op. Her last screening was in 2016, which was remarkable for tubular adenomatous polyp. She denies a family history of colon cancer. She denies any changes in bowel habits including bloody or black tarry stools, abdominal pain, diarrhea or constipation. She states that she has been having worsenign dysphagia with meat, especially beef. She states that she has not had an EGD for a number of years since her Gastropexy in 2010. She denies constitutional symptoms. Denies use of marijuana or any other recreational or illegal drugs. She denies chest pain, palpitations, dyspnea or dyspnea with exertion. She denies prior history or family history of adverse reactions or complications with anesthesia. The patient reports a history of TIAs over 6 years ago. All symptoms have resolved. She denies any history of KS, seizures, bleeding or clotting disorders. She has implanted metal in her right knee. No changes in her health since she was last seen [facility] Medical History (Updated 03/14/21 @ 10:01 by Yo Santamaria, [place]) Acid reflux disease a. s/p gastropexy for a large paraesophageal hernia 2010 Acute internal derangement of left knee Complication of anesthesia (11/13/13) Pt. states she is unaware of this CVA (cerebral vascular accident) 2015: admitted here, symptoms resolved after 6 days, on ASA now Depressive disorder anxiety Family history of [id number] deficiency (08/26/14) Pt tested neg Foot pain (04/22/14) left ([place] 01/17) Heel pain, chronic Hiatal hernia (03/01/10) 02/13 PARAESOPH HERNIA REPAIR ([place] Hyperglycemia (08/19/14) pt. 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 last EKG 2017 Tear of medial meniscus of left knee, current TIA (transient ischemic attack) 2015 Tubular adenoma (06/23/15) Vertigo (08/26/14) MRI/MRA [place], left basal ganglia infarct and left vertebral artery narrowing Vertigo, labyrinthine (08/19/14) A. severe vertigo and nausea with vomiting Surgical History Acute medial meniscal injury of left knee repaired [facility] 07/23/2019 EGD - MAC (11/05/16) GASTROPLEXY [facility]; large paraesophageal hernia H/O surgical procedure a. gastropexy b. vaginal hysterectomy c. left foot surgery History of appendectomy 07/07/2009 History of total knee arthroplasty Right knee 07/08/2017 Status post foot surgery Status post repair of paraesophageal diaphragmatic hernia Status post vaginal hysterectomy Vaginal hysterectomy (~1984) Family History Mother Heart disease COPD (chronic obstructive pulmonary disease) Father , Suicide Alcohol abuse Grandfather Heart disease Grandfather Heart disease Grandmother Heart disease Grandmother Heart disease Sister COPD (chronic obstructive pulmonary disease) #1 WITH TOBACCO USE Social History Smoking/Tobacco Use Status: Never Smoking risk assessment performed?: Yes Alcohol Intake: never Drug use: Never Counseling given: No Caregiver/Support person: No Household members: spouse Housing: house Do you need help understanding health information?: Rarely Pets and animals: No Sexually active: No Do you think of yourself as: straight/heterosexual Current gender identity: female What is your relationship status?: How often do you talk on the phone with friends or family?: three or more times per week How often do you attend religious or confucianist services?: 1-3 times per year Do you belong to any clubs or organized social groups?: no Panel score (0-1 are the most socially isolated patients): 2 Frequency: 1-2 times per week Crystal/Scientology: Congregational Seatbelt use: always Drive intox or ride w/intox lease purchase driver: No Do you feel safe at home: Yes Do you feel safe in your relationship?: Yes Meds Allergies and Home Medications Allergies Allergy/AdvReac Type Severity Reaction Status Date / Time amoxicillin trihydrate AdvReac Severe DIARRHEA Verified 03/14/21 09:21 [From Augmentin] morphine AdvReac Severe HEART Verified 03/14/21 09:21 PALPITATIONS amoxicillin [From Augmentin] AdvReac Intermediate diarrhea Verified 03/14/21 09:21 clavulanic acid AdvReac Intermediate diarrhea Verified 03/14/21 09:21 [From Augmentin] Sulfa (Sulfonamide AdvReac Mild PRURITIS Verified 03/14/21 09:21 Antibiotics) Home Medications Medication Instructions Recorded Confirmed Type calcium carbonate-vitamin D3 1 ea PO DAILY 10/10/12 03/14/21 History multivitamin [Multi-Day] 1 ea PO DAILY 10/10/12 03/14/21 History Vitamin B Complex 1 ea PO DAILY 04/26/13 03/13/21 History sennosides [Senokot] 1 tab PO BID PRN PRN tab 08/14/17 03/14/21 Rx Cane u #1 09/29/17 02/15/19 Clinic aspirin 81 mg tablet,delayed 81 mg PO DAILY 03/26/19 03/14/21 History release acetaminophen [Mapap Extra 500 mg PO Q6H #100 tab 07/23/19 03/14/21 Rx Strength] ascorbic acid (vitamin C) [Vitamin 1,000 mg PO PRN PRN 07/23/19 03/14/21 History C] paroxetine HCl 40 mg tablet 40 mg PO DAILY #90 tab 10/05/20 03/14/21 Rx fluticasone propionate 50 2 spray INTRANASAL DAILY #15.8 ml 10/11/20 03/14/21 Rx mcg/actuation nasal spray,suspension bisacodyl 5 mg tablet,delayed 5 mg PO ONCE #4 tab 12/08/20 03/13/21 Rx release polyethylene glycol 3350 17 238 g PO ONCE #238 g 12/08/20 03/14/21 Rx gram/dose oral powder pantoprazole 40 mg tablet,delayed 40 mg PO DAILY #90 tab 12/14/20 03/14/21 Rx release atorvastatin 40 mg tablet 40 mg PO QPM #90 tab 03/01/21 03/14/21 Rx trazodone 50 mg tablet 50 mg PO QHS PRN #90 tab 03/01/21 03/14/21 Rx bisacodyl 5 mg tablet,delayed 5 mg PO ONCE #4 tab 03/06/21 03/14/21 Rx release polyethylene glycol 3350 17 17 g PO ONCE #238 g 03/06/21 03/13/21 Rx gram/dose oral powder Exam Const General: healthy appearing and comfortable Resp Effort & Inspection: normal respiratory effort Auscultation: clear to auscultation bilaterally Cardio Rate: regular rate Rhythm: regular rhythm Heart Sounds: no click, no gallops and no murmurs
--- NOTE | 2021-03-14 06:52 | ENDO_ITS ---
Date of service: 03/14/21 Time of Service: : Endoscopy Report DATE OF PROCEDURE: 03/14/21 PRE-OP DIAGNOSIS: hx of colon polyps, dysphagia POST-OP DIAGNOSIS: other (gastritis, polyps, mild diverticulosis) PROCEDURE: 1. EGD with biopsies 2. Colonoscopy with polypectomy SURGEON: Dana Blair ANESTHESIA TYPE: General:No Airway ([place], [place]) ESTIMATED BLOOD LOSS: 3 PATHOLOGY: other (duodenal, gastric and GE junction bx, gastric polyps, ascending and transverse polyps) COMPLICATIONS: None DISPOSITION: same day INDICATIONS: The patient is here for Colonoscopy pre-op. Her last screening was in 2016 and was remarkable for tubular adenomatous polyp. She has no family history of colon cancer. She has not had any bowel habit changes. -Discussed colonoscopy bowel prep as well as the procedure. Discussed possible complications of the procedure to include bleeding, pain, perforation, missed small lesion/polyp, sore throat, aspiration and adverse reaction to the medications. Questions were answered to patient?s satisfaction. No guarantees were implied or given. Dysphagia that has been present for over 1 year, which is mostly associated to meats. Denies heart burn symptoms. -Discussed Upper endoscopy procedure and the need to be NPO after midnight the night prior. Discussed possible complications of the procedure to include bleeding, pain, perforation, missed small lesion/polyp/ulcers, sore throat, asp iration and adverse reaction to the medications or sedation. Questions were answered to patient?s satisfaction. No guarantees were implied or given. I spent 30 minutes in reviewing the record, seeing the patient, providing patient education, answering patient's questions and documenting in the medical record. P// Colonoscopy and EGD under sedation. PREP: Miralax/Dulcolax PROCEDURE START TIME: PROCEDURE END TIME: 11:25 FINDINGS: mild inflammation of the stomach, scr tissue at the GE junction with some inflammation. No stricture multiple small polyps in the colon, mild sigmoid diverticulosis PROCEDURE DESCRIPTION: After informed consent was obtained the patient was take to the procedure room and placed in a supine position. Monitors were applied and a time out was done. The patients name, date of , procedure type, allergies to medications and metal in their body was reviewed. A bite block was placed and the patient was sedated. Once sedated and comfortable the gastroscope was advanced through the oropharynx which was grossly normal into the esophagus. The proximal and mid- esophagus were normal. In the distal esophagus there was mild inflammation and a schatzki's ring noted. The scope was advanced into the stomach and through the pylorus into the 3rd portion of the duodenum. The duodenum was noted to be normal. Biopsies were done. The scope was retracted back into the stomach. There was mild inflammation noted in the antrum and body. Biopsies were done to rule out H. pylori. There were no ulcers. There were multiple benign appearing polyps. 2 polyps were biopsied. The scope was retro-flexed. The cardia and fundus were noted to be normal. There was no hiatal hernia noted. The scope was retracted back into the esophagus and biopsies were done of the GE junction to rule out Haynes's. The Z line was regular. The GE junction was at 38 cm. There was a sschatzki's ring noted. While the patient was still sedated they were placed in a left decubitous position. A rectal exam was done. External exam reaveled some prolapse. Internal exam revealed a normal sphincter tone and no palpable masses. The scope was then introduced and retro-flexed. No internal hemorrhoids, masses or polyps were identified on retroflexion. The scope was then advanced to the cecum withoutdifficulty. The ileocecal valve and appendiceal orifice were identified. The prep was adequate. The scope was then slowly retracted over more then 6 minutes back into the rectum. Polyps were removed with with cold forceps in the ascending colon x3 and transverse colon x2. There was mild div erticulosis noted in the sigmoid colon. The scope was removed and the patient was woken up and taken back to Same day surgery in stable condition. The patient tolerated the procedure well and there were no immediate complications. Follow up: 5 years for next colonoscopy.
--- NOTE | 2021-03-14 07:07 | W.PM.DSUDISC ---
Discharge Plan Disposition Patient Disposition: HOME Condition: Good Discharge Details Reason For Visit: colo/egd Attending Provider: Dana Blair Primary Care Provider: aKtie Schaefr Home Meds and New Rx's Prescriptions: Continued aspirin [Adult Low Dose Aspirin] 81 mg tablet,delayed release (DR/EC) 81 mg PO DAILY RF: 0 multivitamin [Multi-Day] 1 EACH tablet 1 ea PO DAILY RF: 0 calcium carbonate-vitamin D3 1 EACH tablet 1 ea PO DAILY RF: 0 VITAMIN B COMPLEX 1 EACH tablet 1 ea PO DAILY RF: 0 Cane Qty: 1 RF: 0 paroxetine HCl 40 mg tablet 40 mg PO DAILY Qty: 90 RF: 3 fluticasone propionate [Flonase Allergy Relief] 50 mcg/actuation spray,suspension 2 spray intranasal DAILY Qty: 15.8 RF: 4 pantoprazole [Protonix] 40 mg tablet,delayed release (DR/EC) 40 mg PO DAILY Qty: 90 RF: 3 atorvastatin 40 mg tablet 40 mg PO QPM Qty: 90 RF: 4 trazodone 50 mg tablet 50 mg PO QHS PRN (Reason: sleep) Qty: 90 RF: 4 sennosides [Senokot] 1 TAB tablet 1 tab PO BID PRN PRNRF: 0 ascorbic acid (vitamin C) [Vitamin C] 1,000 mg Tablet 1,000 mg PO PRN PRNRF: 0 acetaminophen [Mapap Extra Strength] 500 MG tablet 500 mg PO Q6H Qty: 100 RF: 3 Discontinued bisacodyl [Dulcolax (bisacodyl)] 5 mg tablet,delayed release (DR/EC) 5 mg PO ONCE Qty: 4 RF: 0 polyethylene glycol 3350 17 gram/dose powder 238 g PO ONCE Qty: 238 RF: 0 bisacodyl [Dulcolax (bisacodyl)] 5 mg tablet,delayed release (DR/EC) 5 mg PO ONCE Qty: 4 RF: 0 polyethylene glycol 3350 17 gram/dose powder 17 g PO ONCE Qty: 238 RF: 0 Discharge Instructions Instructions: Gastritis (DC), Diet for Stomach Ulcers and Gastritis (ED), GERD (Gastroesophageal Reflux Disease) (DC), Colorectal Polyps (DC) Additional Instructions: Findings: mild inflammation of the stomach and esophagus Polyps Follow up: 5 years for next colonoscopy. Please call if you develop: fevers >101.5 Nausea or Vomiting Abdominal pain that is not transient Rectal bleeding that is more then a tbsp A hard abdomen and inability to pass gas DAY SURGERY UNIT POST ENDOSCOPY INSTRUCTIONS Instructions for everyone who is given Anesthesia: For your safety, please do the following for the next 24 Hours: a. Do not drive or operate dangerous equipment b. Do not drink alcohol beverages or use any recreational drugs for the first 24 hours or while taking pain medications. The medications in your body may have a reaction that can be dangerous. c. Do not make any important decisions or sign any important papers 1. Generally there are no restrictions on your activity after a day or so has gone by, but you may feel a bit fatigued for a few days. 2. After you arrive home you may have a light meal and return to a normal diet as you can tolerate it without feeling sick to your stomach. 3. After surgery, you may feel pain or discomfort. This should be only transient, but if it persists please contact your doctor. 4. If there are any questions regarding the findings of your procedure, please feel free to contact your doctor. 6. If you are unable to contact your doctor with a problem, contact the hospital at [phone]. 7. Continue all your regular medications unless directed otherwise. I understand the above instructions and have no questions. Signature of Patient or Responsible Adult Escort Date/Time Name of Responsible Adult Escort Signature of Nurse Date/Time Referrals: Dana Blair MD [ [facility] STAFF PHYSICIAN] - (2 weeks) Activity:: Activity as Tolerated Diet:: As Tolerated Discharge Orders Discharge Orders: Discharge Order (Routine); Ordered 03/14/21 Ordered By: Dana Blair DS: Diagnosis Discharge Diagnosis (1) Dysphagia: Status: Acute (2) Encounter for colonoscopy due to history of adenomatous colonic polyps: Status: Acute
--- NOTE | 2021-03-14 07:50 | W.ANESPRE ---
General Info Date of Service Date Performed: 03/14/21 Height: 5 ft 2 in Weight: 71.668 kg Body Mass Index (BMI): 28.9 Surgical Procedure: Operation Date: 03/14/21 10:20 Proposed Procedures Side Surgeon p Colonoscopy Dana Blair MD Meds Allergies and Home Medications Allergies Allergy/AdvReac Type Severity Reaction Status Date / Time amoxicillin trihydrate AdvReac Severe DIARRHEA Verified 03/14/21 09:21 [From Augmentin] morphine AdvReac Severe HEART Verified 03/14/21 09:21 PALPITATIONS amoxicillin [From Augmentin] AdvReac Intermediate diarrhea Verified 03/14/21 09:21 clavulanic acid AdvReac Intermediate diarrhea Verified 03/14/21 09:21 [From Augmentin] Sulfa (Sulfonamide AdvReac Mild PRURITIS Verified 03/14/21 09:21 Antibiotics) Home Medication Medication Instructions Recorded calcium carbonate-vitamin D3 1 ea PO DAILY 10/10/12 multivitamin [Multi-Day] 1 ea PO DAILY 10/10/12 Vitamin B Complex 1 ea PO DAILY 04/26/13 sennosides [Senokot] 1 tab PO BID PRN PRN tab 08/14/17 aspirin 81 mg tablet,delayed 81 mg PO DAILY 03/26/19 release acetaminophen [Mapap Extra 500 mg PO Q6H #100 tab 07/23/19 Strength] ascorbic acid (vitamin C) [Vitamin 1,000 mg PO PRN PRN 07/23/19 C] paroxetine HCl 40 mg tablet 40 mg PO DAILY #90 tab 10/05/20 fluticasone propionate 50 2 spray INTRANASAL DAILY #15.8 ml 10/11/20 mcg/actuation nasal spray,suspension bisacodyl 5 mg tablet,delayed 5 mg PO ONCE #4 tab 12/08/20 release polyethylene glycol 3350 17 238 g PO ONCE #238 g 12/08/20 gram/dose oral powder pantoprazole 40 mg tablet,delayed 40 mg PO DAILY #90 tab 12/14/20 release atorvastatin 40 mg tablet 40 mg PO QPM #90 tab 03/01/21 trazodone 50 mg tablet 50 mg PO QHS PRN #90 tab 03/01/21 bisacodyl 5 mg tablet,delayed 5 mg PO ONCE #4 tab 03/06/21 release polyethylene glycol 3350 17 17 g PO ONCE #238 g 03/06/21 gram/dose oral powder Current Visit Medications: Current Medications Generic Name Dose Route Start Last Admin Trade Name Freq PRN Reason Stop Dose Admin Hyoscyamine Sulfate 0.125 mg 03/14/21 06:53 Hyoscyamine 0.125 Mg Sl/Oral/Chew SL DIRECTED PRN Ringer's Solution 1,000 mls @ 80 mls/hr 03/14/21 06:00 IV 04/12/21 23:59 INFUSION [facility] IV Miscellaneous Supplies 1 each 03/14/21 06:00 Iv Access IV 04/12/21 23:59 DIRECTED AHSAN Ondansetron HCl 4 mg 03/14/21 06:53 Ondansetron 4 Mg/2 Ml Vial IVP Q4H PRN PRN Nausea / Vomiting Sodium Chloride 0 ml 03/14/21 06:00 Normal Saline Flush 10 Ml Syr IV 04/12/21 23:59 PRN PRN Sodium Chloride 0 ml 03/14/21 06:00 Normal Saline 10 Ml Vial IJ 04/12/21 23:59 DIRECTED PRN Sterile Water 0 ml 03/14/21 06:00 Water,Injection,Sterile 10 Ml Vial IJ 04/12/21 23:59 DIRECTED PRN PFSH Active Problems Active Problems: Problem Status Onset Code Encounter for colonoscopy due to history of adenomatous colonic polyps Z12.11, Z86.010 Dysphagia R13.10 Sinusitis J32.9 Complex ovarian cyst N83.299 Insomnia G47.00 Hyperlipidemia E78.5 RLQ abdominal pain R10.31 Primary osteoarthritis of left knee M17.12 Sleep apnea, obstructive G47.33 Allergic rhinitis J30.9 Acid reflux disease K21.9 Depressive disorder F32.9 Tubular adenoma 06/23/15 D36.9 Medical History Medical History (Updated 03/14/21 @ 10:01 by Yo Santamaria, [employer]) Acid reflux disease a. s/p gastropexy for a large paraesophageal hernia 2010 Acute internal derangement of left knee Complication of anesthesia (11/13/13) Pt. states she is unaware of this CVA (cerebral vascular accident) 2015: admitted here, symptoms resolved after 6 days, on ASA now Depressive disorder anxiety Family history of fbzbc-[id number]-efylxyfunnu deficiency (08/26/14) Pt tested neg Foot pain (04/22/14) left ([place] 01/17) Heel pain, chronic Hiatal hernia (03/01/10) 02/13 PARAESOPH HERNIA REPAIR ([place], [place]) Hyperglycemia (08/19/14) pt. 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 last EKG 2017 Tear of medial meniscus of left knee, current TIA (transient ischemic attack) 2015 Tubular adenoma (06/23/15) Vertigo (08/26/14) MRI/MRA [facility], left basal ganglia infarct and left vertebral artery narrowing Vertigo, labyrinthine (08/19/14) A. severe vertigo and nausea with vomiting Surgical History Surgical History Acute medial meniscal injury of left knee repaired [facility] 07/23/2019 EGD - MAC (11/05/16) GASTROPLEXY [facility]; large paraesophageal hernia H/O surgical procedure a. gastropexy b. vaginal hysterectomy c. left foot surgery History of appendectomy 07/07/2009 History of total knee arthroplasty Right knee 07/08/2017 Status post foot surgery Status post repair of paraesophageal diaphragmatic hernia Status post vaginal hysterectomy Vaginal hysterectomy (~1984) Tobacco Smoking/Tobacco Use Status: Never Passive smoking exposure: No Alcohol Alcohol Intake: never Substance Use Substance use: Never Substance use type: does not use Counseling given: No Vital Signs and Lab Results Lab Results Blood Type / Crossmatch: No Data to Display Complete Blood Count: No Data to Display Complete Metabolic Panel: No Data to Display Liver Function Panel: No Data to Display Coagulation Panel: No Data to Display Cardiac Panel: No Data to Display Arterial Blood Gas: No Data to Display Venous Blood Gas: No Data to Display Pancreas Panel: No Data to Display Thyroid Panel: No Data to Display Infectious Disease: Coronavirus (COVID-19)(PCR) Negative (Negative) 03/13/21 08:43 03/13/21 Coronavirus 2019 Source Nasal/Nares 03/13/21 08:43 03/13/21 Blood Cultures: No Data to Display Toxicology Panel: No Data to Display Imaging and Studies Imaging and Studies Echocardiogram Summary: FINDINGS: Technically limited study. Poor endocardial definition. LEFT VENTRICLE/LVEF: LVEF estimated at approximately 60%. Normal size. RIGHT VENTRICLE: Not well visualized. AORTIC VALVE: Trileaflet, no aortic stenosis or insufficiency. MITRAL VALVE: No mitral stenosis or insufficiency. TRICUSPID VALVE: No tricuspid insufficiency. RSV/PA/RIGHT ATRIAL PRESSURE: Right atrial pressure estimated at < 100 mmHg. PULMONIC VALVE: No pulmonic stenosis or insufficiency. ATRIA: Left atrium, right atrium within normal limits. DIASTOLIC INDICES: E/A ratio < 1. Deceleration time 322 milliseconds. E-prime velocity 8 cm/second. E/E-prime ratio < 15. IVRT < 100 milliseconds. GREAT VESSELS: The inferior vena cava is normal in size and collapses with inspiration. PERICARDIUM: No effusion. RHYTHM: Sinus. Carotid Artery Summary:: IMPRESSION: No evidence of hemodynamically significant cervical carotid artery stenosis. Please refer to the cerebrovascular evaluation worksheet for complete details. Anesthesia Assessment and Plan Anesthesia History Personal History: No History of Anesthesia Complications Family History: No Family History of Anesthesia Complications Exercise Tolerance Exercise Tolerance: Metabolic Equivalents>4 Pertinent Negatives Pertinent Negatives: No Symptoms of GERD Cardiac & Pulmonary Exam Cardiac Exam: Normal S1/S2 Heart Sounds Pulmonary Exam: Clear Bilateral Breath Sounds Airway Exam Known Difficult Airway: No Mallampati Class: 2 Mouth Opening: Normal (> 3cm) Thyromental Distance: Greater than 3 cm Neck Range of Motion: Full ROM Neck Circumference: Normal Teeth Condition: Removable Dentures/Plates Upper and Removable Dentures/Plates Lower ASA Classification ASA Score: ASA 3 Emergency Case?: No NPO Status NPO Status: NPO Clears >2 hours, Solids >8 hours Anesthesia Plan Resuscitation Status: Full Code Anesthesia Technique: General Anesthesia Airway Planned: Natural Airway Monitors Used: Standard Monitors
[2021-03-14 09:14] VITALS: BP 121/82; PULSE 104; RESP 18; TEMP 36.5; O2SAT 92
[2021-03-14] MEDS: Lactated Ringers 1,000 ML 80 ML IV (09:32)
--- NOTE | 2021-03-14 10:40 | STOM_PTH ---
PATIENT: Julissa Davis LOC: [facility] U#:[id number] AGE/SX: 70/F ROOM: RE03/14/[address]: Dana Blair MD : [id number] BED: DIS: 03/14/2021 SPEC #: [id number] RECD: 03/14/21 12:48 STATUS: FRANCISCO REQ #: [id number] JAYLON: 03/14/21 10:[address]: Dana Blair DEPT: Surgical Specimen RECD BY: Ashley Hernandez ENTERED: 03/14/21 12:51 SP TYPE: STOMACH OTHR DR: Katie Schafer, PhD REGIONAL LIAISON Tissues: 1 - BIOPSY BOWEL 2 - STOMACH BIOPSY 3 - STOMACH BIOPSY 4 - ESOPHAGUS BIOPSY 5 - BIOPSY BOWEL 6 - BIOPSY BOWEL Procedures: GROSS AND MICRO LEVEL 4 Comments: [id number]
[2021-03-14 10:44] VITALS: BMI 28.9
[2021-03-14 11:30] VITALS: BP 127/69; PULSE 73; RESP 16; TEMP 36.3; O2SAT 93
--- NOTE | 2021-03-14 11:32 | W.ANESPOSTOP ---
Postoperative Evaluation Date, Time and Location Date Performed: 03/14/21 Time Performed: 11:32 Patient Location: Day Surgery Unit Vital Signs Most Recent Imported Vital Signs: Most Recent Vital Signs Temp Pulse Resp BP Pulse Ox 36.5 C 104 H 18 121/82 92 03/14/21 09:14 03/14/21 09:14 03/14/21 09:14 03/14/21 09:14 03/14/21 09:14 Most Recent Manually Entered Vital Signs: Adult Blood Pressure: 127/69 Heart Rate: 74 Respirations: 16 Oxygen Saturation (%): 91 Temperature (C): 36.3 C Pain Score (0-10 Scale): 0 Pain Score Most Recent Pain Score: Most Recent Pain Score Pain Level 0 03/14/21 09:14 Assessment Mental Status: Awake (Alert & Oriented to Patient Baseline) Airway and Respiratory Function: Patent airway with normal (patient baseline) respiratory exam Cardiovascular Function: Hemodynamically Stable Hydration Status: Adequately Hydrated Nausea & Vomiting: No Nausea or Vomiting Pain: Pt. Denies Any Pain Peripheral Nerve Block: Patient did not receive a nerve block Teaching Patient Teaching: Advised to seek followup for the following concerns (See explanation) (Patient with decreased room air SPO2. 90-92%. Reports difficulty breathing at night sometimes. Recomm eded followup with PCP. Dr. Lim concurs) Concerns: Pulmonary Optimization
[2021-03-14 11:34] VITALS: BP 127/69; PULSE 74; RESP 16; TEMPC 36.3; O2SAT 91
[2021-03-14 11:59] VITALS: BP 114/69; PULSE 66; RESP 16; TEMP 36.4; O2SAT 96
== END 2021-03-14 12:25 | disposition home or self-care (01) ==
LOC: SUR 09:03
PROVIDERS: PCP Nurse Practitioner; Visit Provider Surgery
PROC: (CPT 45380; principal; 2021-03-14 10:15)
DX: Z12.11 Encounter for screening for malignant neoplasm of colon (principal); D12.2 Benign neoplasm of ascending colon; D12.3 Benign neoplasm of transverse colon; K21.00 Gastro-esophageal reflux disease with esophagitis, without bleeding; K57.30 Diverticulosis of large intestine without perforation or abscess without bleeding; K29.70 Gastritis, unspecified, without bleeding; Z86.010 Personal history of colon polyps; K31.7 Polyp of stomach and duodenum; K31.89 Other diseases of stomach and duodenum; G47.33 Obstructive sleep apnea (adult) (pediatric)
CPT/HCPCS: 45380; 43239; 88305; J2001

== ENCOUNTER → 2021-03-19 13:16 | Outpatient (BNVA) | payer OTHER, SELFPAY | PROVIDERS: PCP Nurse Practitioner; Referring Provider Nurse Practitioner; Visit Provider Student in an Organized Health Care Education/Training Program | DX: Z01.818 Encounter for other preprocedural examination (principal); M17.12 Unilateral primary osteoarthritis, left knee; Z96.652 Presence of left artificial knee joint ==

== ENCOUNTER 2021-03-26 02:08 | Outpatient (CLI) | payer OTHER, SELFPAY ==
[2021-03-26 10:01] LABS: HCT 37.1 % (36.0-46.0); HGB 12.2 g/dL (11.2-15.7); MCH 29.3 pg (27.0-33.0); MCHC 32.9 % (32.0-36.0); MCV 89.2 fL (80-95); MPV 8.7 fL (8.0-11.0); Platelet Count 201 10^3/uL (130-400); RBC 4.16 10^6/uL (3.93-5.22); RDW 11.9 % (11.7-14.6); RDW-SD 38.6 fL; WBC 4.47 10^3/uL (4.4-10.8)
[2021-03-26 11:49] LABS: Anion Gap 7.6 mmol/L (3-11); BUN 12 mg/dL (7-18); CO2 29.4 mmol/L (21.0-32.0); CREATININE 0.7 mg/dL (0.55-1.02); Calcium 8.9 mg/dL (8.5-10.1); Chloride 109 mmol/L (98-107); Glucose 85 mg/dL (74-106); Potassium 4.2 mmol/L (3.5-5.1); Sodium 146 mmol/L (136-145)
== END 2021-03-26 02:09 | disposition home or self-care (01) ==
LOC: LBO 02:09
PROVIDERS: PCP Nurse Practitioner; Visit Provider Student in an Organized Health Care Education/Training Program
DX: M25.562 Pain in left knee (principal); M17.12 Unilateral primary osteoarthritis, left knee; Z01.818 Encounter for other preprocedural examination; Z01.812 Encounter for preprocedural laboratory examination
CPT/HCPCS: 36415; 80048; 85027

== ENCOUNTER 2021-03-26 02:09 | Outpatient (CLI) | payer OTHER, SELFPAY ==
[2021-03-26 11:08] LABS: Source Nasal/Nares
[2021-03-26 14:17] LABS: COVID-19 PCR Negative (Negative)
== END 2021-03-26 02:10 | disposition home or self-care (01) ==
LOC: LBO 02:09
PROVIDERS: PCP Nurse Practitioner; Visit Provider Student in an Organized Health Care Education/Training Program
DX: Z20.822 Contact with and (suspected) exposure to COVID-19 (principal); Z01.818 Encounter for other preprocedural examination
CPT/HCPCS: 87635

== ENCOUNTER 2021-03-27 06:16 | Day surgery (SDC) | payer OTHER, SELFPAY ==
[2021-03-27] VITALS (7 sets, daily range): BP systolic 111–131; BP diastolic 45–71; PULSE 69–80; RESP 13–17; TEMP 36–36.4; O2SAT 94–98; BMI 28.5
--- NOTE | 2021-03-27 05:12 | ANES.PREOP_ITS ---
General Info Date of Service Date Performed: 03/27/21 Height: 5 ft 2 in Weight: 70.76 kg Body Mass Index (BMI): 28.5 Surgical Procedure: Operation Date: 03/27/21 07:40 Proposed Procedures Side Surgeon p Knee Total Arthroplasty Left Frandy Trevino MD Meds Allergies and Home Medications Allergies Allergy/AdvReac Type Severity Reaction Status Date / Time amoxicillin trihydrate AdvReac Severe DIARRHEA Verified 03/27/21 06:38 [From Augmentin] morphine AdvReac Severe HEART Verified 03/27/21 06:38 PALPITATIONS amoxicillin [From Augmentin] AdvReac Intermediate diarrhea Verified 03/27/21 06:38 clavulanic acid AdvReac Intermediate diarrhea Verified 03/27/21 06:38 [From Augmentin] Sulfa (Sulfonamide AdvReac Mild PRURITIS Verified 03/27/21 06:38 Antibiotics) Home Medication Medication Instructions Recorded calcium carbonate-vitamin D3 1 ea PO DAILY 10/10/12 multivitamin [Multi-Day] 1 ea PO DAILY 10/10/12 Vitamin B Complex 1 ea PO DAILY 04/26/13 sennosides [Senokot] 1 tab PO BID PRN PRN tab 08/14/17 ascorbic acid (vitamin C) [Vitamin 1,000 mg PO PRN PRN 07/23/19 C] paroxetine HCl 40 mg tablet 40 mg PO DAILY #90 tab 10/05/20 fluticasone propionate 50 2 spray INTRANASAL DAILY #15.8 ml 10/11/20 mcg/actuation nasal spray,suspension pantoprazole 40 mg tablet,delayed 40 mg PO DAILY #90 tab 12/14/20 release atorvastatin 40 mg tablet 40 mg PO QPM #90 tab 03/01/21 trazodone 50 mg tablet 50 mg PO QHS PRN #90 tab 03/01/21 acetaminophen 1,000 mg PO Q8H PRN #90 tab 03/27/21 aspirin 81 mg PO BID #60 tab 03/27/21 cefadroxil 500 mg PO BID #14 cap 03/27/21 docusate sodium [Colace] 100 mg PO BID PRN #10 cap 03/27/21 gabapentin 300 mg PO QHS #7 cap 03/27/21 meloxicam 15 mg PO DAILY #30 tab 03/27/21 oxycodone 5 mg PO Q4H #18 tab 03/27/21 Current Visit Medications: Current Medications Generic Name Dose Route Start Last Admin Trade Name Freq PRN Reason Stop Dose Admin Acetaminophen 1,000 mg 03/27/21 06:00 Acetaminophen 500 Mg Tab PO 03/27/21 18:00 PREOP AHSAN Celecoxib 400 mg 03/27/21 06:00 Celecoxib 200 Mg Cap PO 03/27/21 18:00 PREOP AHSAN Gabapentin 300 mg 03/27/21 06:00 Gabapentin 300 Mg Cap PO 03/27/21 18:00 PREOP AHSAN Tranexamic Acid 1,000 mg/ 60 mls @ 360 mls/hr 03/27/21 06:00 Sodium Chloride IVPB 03/27/21 18:00 PREOP AHSAN Tranexamic Acid 1,000 mg/ 60 mls @ 360 mls/hr 03/27/21 06:00 Sodium Chloride IVPB 03/27/21 18:00 DIRECTED AHSAN Ringer's Solution 1,000 mls @ 80 mls/hr 03/27/21 06:00 IV 04/25/21 23:59 INFUSION AHSAN Cefazolin Sodium 2,000 mg/ 100 mls @ 200 mls/hr 03/27/21 06:00 Sodium Chloride IVPB 03/27/21 16:00 PREOP [facility] IV Miscellaneous Supplies 1 each 03/27/21 06:00 Iv Access IV 04/25/21 23:59 DIRECTED AHSAN Sodium Chloride 0 ml 03/27/21 06:00 Normal Saline Flush 10 Ml Syr IV 04/25/21 23:59 PRN PRN Sodium Chloride 0 ml 03/27/21 06:00 Normal Saline 10 Ml Vial IJ 04/25/21 23:59 DIRECTED PRN Sterile Water 0 ml 03/27/21 06:00 Water,Injection,Sterile 10 Ml Vial IJ 04/25/21 23:59 DIRECTED PRN PFSH Active Problems Active Problems: Problem Status Onset Code Encounter for colonoscopy due to history of adenomatous colonic polyps Z12.11, Z86.010 Dysphagia R13.10 Sinusitis J32.9 Complex ovarian cyst N83.299 Insomnia G47.00 Hyperlipidemia E78.5 RLQ abdominal pain R10.31 Primary osteoarthritis of left knee M17.12 Sleep apnea, obstructive G47.33 Allergic rhinitis J30.9 Acid reflux disease K21.9 Depressive disorder F32.9 Tubular adenoma 06/23/15 D36.9 Medical History Medical History Acid reflux disease a. s/p gastropexy for a large paraesophageal hernia 2010 Acute internal derangement of left knee Complication of anesthesia (11/13/13) Pt. states she is unaware of this CVA (cerebral vascular accident) 2015: admitted here, symptoms resolved after 6 days, on ASA now Depressive disorder anxiety DVT (deep venous thrombosis) right posterior tibial vein 08/07/2017 Family history of dvyxx-8-pqituvxhero deficiency (08/26/14) Pt tested neg Foot pain (04/22/14) left ([place] 01/17) Heel pain, chronic Hiatal hernia (03/01/10) 02/13 PARAESOPH HERNIA REPAIR ([place], [place]) Hyperglycemia (08/19/14) pt. 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 last EKG 2017 Tear of medial meniscus of left knee, current TIA (transient ischemic attack) 2014 Tubular adenoma (06/23/15) Vertigo (08/26/14) MRI/MRA [place], left basal ganglia infarct and left vertebral artery narrowing Vertigo, labyrinthine (08/19/14) A. severe vertigo and nausea with vomiting Surgical History Surgical History Acute medial meniscal injury of left knee repaired [facility] 07/23/2019 EGD - MAC (11/05/16) GASTROPLEXY [facility]; large paraesophageal hernia H/O surgical procedure a. gastropexy b. vaginal hysterectomy c. left foot surgery History of appendectomy 07/07/2009 History of total knee arthroplasty Right knee 07/08/2017 Status post foot surgery Status post repair of paraesophageal diaphragmatic hernia Status post vaginal hysterectomy Vaginal hysterectomy (~1984) Tobacco Smoking/Tobacco Use Status: Never Passive smoking exposure: No Alcohol Alcohol Intake: never Substance Use Substance use: Never Counseling given: No Vital Signs and Lab Results Vital Signs Most Recent Vital Signs in EMR: Temp Pulse Resp BP Pulse Ox 36.4 C L 75 17 114/71 96 03/27/21 06:31 03/27/21 06:31 03/27/21 06:31 03/27/21 06:31 03/27/21 06:31 Lab Results Blood Type / Crossmatch: No Data to Display Complete Blood Count: White Blood Count 4.47 10^3/uL (4.4-10.8) 03/26/21 09:55 03/26/21 Red Blood Count 4.16 10^6/uL (3.93-5.22) 03/26/21 09:55 03/26/21 Hemoglobin 12.2 g/dL (11.2-15.7) 03/26/21 09:03/26/21 Hematocrit 37.1 % (36.0-46.0) 03/26/21 09:55 03/26/21 Platelet Count 201 10^3/uL (130-400) 03/26/21 09:55 03/26/21 Complete Metabolic Panel: Sodium Level 146 mmol/L (136-145) H 03/26/21 09:55 03/26/21 Potassium Level 4.2 mmol/L (3.5-5.1) 03/26/21 09:03/26/21 Chloride Level 109 mmol/L (98-107) H 03/26/21 09:55 03/26/21 Carbon Dioxide Level 29.4 mmol/L (21.0-32.0) 03/26/21 09:03/26/21 Blood Urea Nitrogen 12 mg/dL (7-18) 03/26/21 09:03/26/21 Creatinine 0.7 mg/dL (0.55-1.02) 03/26/21 09:03/26/21 Estimated GFR/1.73 m2 >= 60.00 (mL/min/1.73m2) 03/26/21 09:55 03/26/21 Calcium Level 8.9 mg/dL (8.5-10.1) 03/26/21 09:03/26/21 Glucose Level 85 mg/dL (74-106) 03/26/21 09:55 03/26/21 Liver Function Panel: No Data to Display Coagulation Panel: No Data to Display Cardiac Panel: No Data to Display Arterial Blood Gas: No Data to Display Venous Blood Gas: No Data to Display Pancreas Panel: No Data to Display Thyroid Panel: No Data to Display Infectious Disease: Coronavirus (COVID-19)(PCR) Negative (Negative) 03/26/21 09:09 03/26/21 Coronavirus 2019 Source Nasal/Nares 03/26/21 09:09 03/26/21 Blood Cultures: No Data to Display Toxicology Panel: No Data to Display Imaging and Studies Imaging and Studies Echocardiogram Summary: FINDINGS: Technically limited study. Poor endocardial definition. LEFT VENTRICLE/LVEF: LVEF estimated at approximately 60%. Normal size. RIGHT VENTRICLE: Not well visualized. AORTIC VALVE: Trileaflet, no aortic stenosis or insufficiency. MITRAL VALVE: No mitral stenosis or insufficiency. TRICUSPID VALVE: No tricuspid insufficiency. RSV/PA/RIGHT ATRIAL PRESSURE: Right atrial pressure estimated at < 100 mmHg. PULMONIC VALVE: No pulmonic stenosis or insufficiency. ATRIA: Left atrium, right atrium within normal limits. DIASTOLIC INDICES: E/A ratio < 1. Deceleration time 322 milliseconds. E-prime velocity 8 cm/second. E/E-prime ratio < 15. IVRT < 100 milliseconds. GREAT VESSELS: The inferior vena cava is normal in size and collapses with inspiration. PERICARDIUM: No effusion. RHYTHM: Sinus. Carotid Artery Summary:: IMPRESSION: No evidence of hemodynamically significant cervical carotid artery stenosis. Please refer to the cerebrovascular evaluation worksheet for complete details. Anesthesia Assessment and Plan Anesthesia History Personal History: No History of Anesthesia Complications Family History: No Family History of Anesthesia Complications Exercise Tolerance Exercise Tolerance: Metabolic Equivalents>4 Cardiac & Pulmonary Exam Cardiac Exam: Normal S1/S2 Heart Sounds Pulmonary Exam: Clear Bilateral Breath Sounds Airway Exam Known Difficult Airway: No Mallampati Class: 2 Mouth Opening: Normal (> 3cm) Thyromental Distance: Greater than 3 cm Neck Range of Motion: Full ROM Neck Circumference: Normal Teeth Condition: Removable Dentures/Plates Upper and Removable Dentures/Plates Lower ASA Classification ASA Score: ASA 3 Emergency Case?: No NPO Status NPO Status: NPO Clears >2 hours, Solids >8 hours Anesthesia Plan Resuscitation Status: Full Code Anesthesia Technique: Spinal Anesthesia Airway Planned: Natural Airway Pain Management: Surgeon and patient request nerve block Monitors Used: Standard Monitors Preoperative Comments:: 70 yo female for left TKA. PMHx: GERD/paraeso herneia repair (pantoprazole), never smoker. Previous Anes: GA no airway for colo with robin, LMA 4 for knee scope, spinal for knee washout, failed spinal converted to GA (lma 3 with poor seal to mac 3 grade 1) for TKA.
[2021-03-27] MEDS: Acetaminophen 500 MG TAB 1000 MG PO (06:50)
[2021-03-27] MEDS: Gabapentin 300 MG CAP PO (06:50)
[2021-03-27] MEDS: Celecoxib 200 MG CAP 400 MG PO (06:50)
--- NOTE | 2021-03-27 07:02 | PDOC.DSDIS_ITS ---
Discharge Plan Disposition Patient Disposition: HOME Condition: Good Discharge Details Reason For Visit: Left Knee DJD Attending Provider: Frandy Trevino Primary Care Provider: Katie Schafer Home Meds and New Rx's Prescriptions: New cefadroxil 500 mg capsule 500 mg PO BID Qty: 14 RF: 0 acetaminophen 500 mg tablet 1,000 mg PO Q8H PRN (Reason: pain) Qty: 90 RF: 3 aspirin 81 mg tablet,delayed release (DR/EC) 81 mg PO BID Qty: 60 RF: 0 docusate sodium [Colace] 100 mg capsule 100 mg PO BID PRNQty: 10 RF: 0 gabapentin 300 mg capsule 300 mg PO QHS Qty: 7 RF: 0 oxycodone 5 mg tablet 5 mg PO Q4H Qty: 18 RF: 0 meloxicam 15 mg tablet 15 mg PO DAILY Qty: 30 RF: 0 Continued multivitamin [Multi-Day] 1 EACH tablet 1 ea PO DAILY RF: 0 calcium carbonate-vitamin D3 1 EACH tablet 1 ea PO DAILY RF: 0 VITAMIN B COMPLEX 1 EACH tablet 1 ea PO DAILY RF: 0 Cane Qty: 1 RF: 0 paroxetine HCl 40 mg tablet 40 mg PO DAILY Qty: 90 RF: 3 fluticasone propionate [Flonase Allergy Relief] 50 mcg/actuation spray,suspension 2 spray intranasal DAILY Qty: 15.8 RF: 4 pantoprazole [Protonix] 40 mg tablet,delayed release (DR/EC) 40 mg PO DAILY Qty: 90 RF: 3 atorvastatin 40 mg tablet 40 mg PO QPM Qty: 90 RF: 4 trazodone 50 mg tablet 50 mg PO QHS PRN (Reason: sleep) Qty: 90 RF: 4 sennosides [Senokot] 1 TAB tablet 1 tab PO BID PRN PRNRF: 0 ascorbic acid (vitamin C) [Vitamin C] 1,000 mg Tablet 1,000 mg PO PRN PRNRF: 0 Discontinued aspirin [Adult Low Dose Aspirin] 81 mg tablet,delayed release (DR/EC) 81 mg PO DAILY RF: 0 acetaminophen [Mapap Extra Strength] 500 MG tablet 500 mg PO Q6H Qty: 100 RF: 3 Discharge Instructions Additional Instructions: Total Knee Discharge Instructions Activity: The most important activity is to walk. You should try to take short walks a few times a day. It is important that when resting you work on keeping the knee straight. Avoid putting a pillow behind the knee as this will encourage flexion. Work on range of motion exercises as provided by Physical Therapy. If you have the [employer] bike coming, this will be your primary tool for exercise after the knee replacement. You should use it and follow the directions for the knee. Utilize the other exercises sparingly based on your symptoms. - Start outpatient physical therapy within 2 weeks. - You should wear the GILBERTO hose on both legs for 2 weeks. You may remove these at night. You may also use any compression sock in place of the GILBERTO hose. - Utilize [employer] to review exercises, see videos on exercises and obtain basic information pertaining to your surgery and your recovery. Dressing: Remove the Timoteo wrap by 2 days after your surgery and put on the GILBERTO stocking given to you from the hospital. Keep the surgical dressing (underneath the TIMOTEO wrap) in place for at least one week. After the first week it may be removed and replaced with light gauze and tape or nothing. The wound and dressing may get wet after 3 days but avoid soaking the dressing or otherwise it will need to be changed. Many people prefer covering the dressing with cling wrap (saran wrap) to minimize it from getting soaked. If it gets wet, just pat dry. If it starts to peel off then it will need to be changed. Medications: - You should take Tylenol and anti-inflammatory, Meloxicam, as your primary pain control medications. If the Meloxicam is too expensive or not covered, please call the office for another alternative (Advil/Ibuprofen or Naproxen/Aleve) - You have been prescribed a stronger pain medication Oxycodone for breakthrough pain, take as needed as prescribed. - You should continue your stomach acid reduction agent Pantoprozole to help reduce stomach acid and reflux. - You have been prescribed Gabapentin to take at night for restlessness and nerve pain. - You will be taking Aspirin 81mg twice a day for DVT prevention unless instructed otherwise. - You will have one week of prophylactic antibiotics, Cefadroxil 500mg twice a day - If you have constipation you should take Colace or Miralax (both lanh-pkp-hugvgon). It takes most people 3-4 days to have a bowel movement. Follow-up: 2 weeks If you have any acute concerns or questions, please do not hesitate to contact the office at [phone]. You may contact Dr. Trevino with any questions after hours through the hospital at [phone] or on his cell phone at [phone]. Referrals: Frandy Trevino MD [ [facility] STAFF PHYSICIAN] - Equipment/Supplies: Walker Activity:: Activity as Tolerated Remove Dressings/Wound Care:: Do Not Remove Shower/Bathe:: 72 hours Discharge Orders Discharge Orders: Discharge Order (Routine); Ordered 03/27/21 Ordered By: Frandy Trevino DS: Diagnosis Discharge Diagnosis (1) Primary osteoarthritis of left knee: Status: Chronic
[2021-03-27] MEDS: Lactated Ringers 1,000 ML 80 ML IV (07:08)
[2021-03-27] MEDS: ceFAZolin 2,000 MG in Normal Saline 100 ML 200 MG IVPB (07:51)
[2021-03-27] MEDS: Normal Saline 20 ML VIAL (08:17)
[2021-03-27] MEDS: Ketorolac 30 MG/ML VIAL (08:17)
[2021-03-27] MEDS: Bupivacaine 0.25% Pres-Free 30 ML VIAL (08:17)
--- NOTE | 2021-03-27 08:34 | W.ANESNERVE ---
Nerve Block Single Injection Procedure Date and Time Date Performed: 03/27/21 Procedure Start: 07:27 Location Where Procedure Performed Procedure Location: PACU Reason Performed: Postoperative Analgesia Requesting Provider: Frandy Trevino Timeout Performed Timeout Performed: Yes Monitoring Used ECG, Blood Pressure and SpO2 Sterility Sterility: Hand Hygiene, Surgical Cap, Surgical Mask, Sterile Gloves and Chlorhexidine Sedation Given During Procedure Sedation Given (Indicate Dose Given): No Sedation given Patient Mental Status Patient Mental Status: Awake Nerve Block 1st Nerve Block: Laterality: Left Block Type: Adductor Canal Needle / Catheter Used: 100mm SonoPlex II Local Anesthetic Bolus (Indicate Dose Given): Lidocaine used for local infiltration of skin, Injected in 3-5ml increments after negative blood aspiration, Blood noted on aspiration and Bupivacaine 0.375% Dose:: 10ml Additives (Indicate Dose Given): None Ultrasound: Sterile probe cover and gel used Ultrasound Image Saved?: Yes Nerve Stimulator: Not Used Paresthesia: None Procedure Tolerated: No Complications and Patient tolerated well Procedure Outcome: Successful Performed By: Yanick Grullon Supervised By: Noe Thompson
--- NOTE | 2021-03-27 09:12 | ROE_ITS ---
Date of service: 03/27/21 Time of Service: 09:12 Operative Note Operative Note DATE OF PROCEDURE: 03/27/21 PRE-OP DIAGNOSIS: Left Knee Osteoarthritis POST-OP DIAGNOSIS: same PROCEDURE: Left Total Knee Replacement SURGEON: Frandy Trevino DRIVER RECRUITER: Nicole Silva ANESTHESIA TYPE: Spinal Refer to Anesthesia Record ESTIMATED BLOOD LOSS: 200 PATHOLOGY: none sent TOURNIQUET TIME: 0 COMPLICATIONS: None Patient was transported to: PACU Patient's condition: stable Implants: 1. Depuy Attune Cementless Cruciate Retaining Femoral Component, Size 4 Narrow 2. Depuy Attune Cementless Rotating Platform Tibial Component, Size 3 3. Depuy Attune 4x5 CR/RP Poly 4. Depuy Attune Patellar Component, Size 32 Indications: I have seen Laura in clinic for symptoms of knee arthritis, confirmed with radiographic findings. She has exhausted nonoperative methods and was having significant limitations in daily function and desired better function and less pain. I discussed the technical details of a knee replacement. I explained the risks of the procedure to include, but not limited to, bleeding, infection, pain, stiffness, fracture, damage to nerves and vessels, damage to muscles and tendons, loosening, need for repeat procedure, blood clot and cardiopulmonary demise. Despite these risks, Laura elected to proceed. Findings: There was significant signs of arthritis throughout the knee, most significant in the medial femur. Procedure Description: Laura was greeted in the preoperative holding area where the correct side was identified and marked. The consent was reviewed with the patient and signed. The history and physical was updated. All questions were answered. Preoperative medications were administered: Acetaminophen 1000mg, Celebrex 400mg, and Gabapentin 300mg. An adductor canal block was then administered by the anesthesia team in the PACU. She was taken back to the operating room. A spinal anesthestic was then administered. The patient was placed into the supine position on the operating room table. A nonsterile tourniquet was placed high onto the leg but only used for cementing. Posts were placed for positioning during the procedure. All bony prominences were well padded. Prophylactic antibiotics in the form of Cefazolin were administered. 1g of Tranxemic Acid was given intravenously within 30 minutes of incision. The left leg was then prepped with Chloraprep and draped in a standard fashion with impervious stockinette. A second prep with Chloraprep was performed prior to application of Iodine impregnated skin protection. A timeout to confirm correct identity, side and site, procedure, allergies, anesthesia, and medical concerns was performed. With the knee in some flexion, a midline incision was made overlying the knee. Full thickness skin flaps were raised once the extensor mechanism was encountered. These were raised medially and laterally. Any bleeding was controlled with electrocautery. Once the extensor mechanism was fully exposed, a medial parapatellar arthrotomy was performed in a flexed position. All bleeding from the arthrotomy and the geniculate arteries was coagulated. A medial subperiosteal peel was performed with electrocautery to the midcoronal plane. The fat pad was removed while keeping the patellar tendon protected. The anterior distal femur synovium was removed for later visualization. The ACL and PCL were resected and the anterior horn of the lateral meniscus was transected. The knee was then flexed with the patella everted. Using a step drill, and based on preoperative templating, the femoral canal was entered. This was done with a step drill without any difficulty. The intramedullary distal femoral cut guide was inserted, set to a 5 degree valgus cut and 8mm cut thickness. The distal femoral cut guide was then held in position and pinned. With the soft tissues protected, the distal cut was performed. This was passed over a few times to ensure a planar cut. I then turned attention to the tibia. The extramedullary guide was placed onto the leg. The distal aspect was slid medial to adjust for position of center of ankle and stay in line with shaft of the tibia. Approximately 3-5 degrees of posterior slope was kept in the proximal cutting guide. The center of the guide was aligned with the PCL. The stylus was used to assess cut thickness. The medial side, most involved side, was set for a 4mm cut which corresponded to 8mm laterally. This was then held in position and pinned into place with 2 additional pins and a cross pin for stability. The medial and lateral collateral ligaments were protected and the cut was performed. With this completed, it was assessed and noted to be of appropriate dimensions. The guide was removed. A spacer block was inserted and the knee was brought into extension. The 5mm spacer block provided full extension, without hyperextension and with stability of both the medial and lateral collateral ligaments was assessed. The pins from the femur and the tibia were then removed. The distal femur was then sized. The anterior stylus was placed onto the lateral ridge of the anterior femur. This indicated a size 4 Narrow femur. The external rotation of the guide was adjusted to 3 degrees to match the epicondylar axis, perpendicular to [place]?s line. The 4-in-1 cutting guide was the placed. The posterior medial femur cut was evaluated and appeared of good thickness. The spacer block was inserted underneath the cutting guide and stability was confirmed in 90 degrees of flexion. An renny wing was used to confirm appropriate position of the anterior cut to avoid notching. This cutting guide was ensured to be flush on the cut surface and then pinned into place with headed pins. While protecting the soft tissues, quad tendon, and collateral ligaments, the anterior and posterior cuts were performed with a saw. The central two pins were removed and the posterior and anterior chamfers were cut next. The notch-cutting guide was placed. This was pinned to lateralize the femoral component as much as possible while keeping it flush on the cut surface. This was then pinned into position. A reciprocating saw was used to make the notch cut. A rasp smoothed the cut surfaces. The medial and lateral menisci were removed. A trial femoral component was then inserted, impacted down to the cut surfaces, and the lug holes were drilled. A provisional trial tibial component was placed and the knee was brought through range of motion. There was noted to be excellent extension and flexion. There was no significant instability. The patella was tracking without thumbs. A size 5mm polyethylene component provided the best range of motion and stability with less than 2mm gapping with medial and lateral stress and full extension without significant hyperextension. The tibial cut surface was fully exposed. The tibia was then sized as a 3. The tibia had been previously marked during trialing to correspond to the center of the tibial component to help with rotation. The trial was aligned to this yahir, approximately rotated to the medial 1/3rd of the tibial tubercle. The trial was pinned into place. The tibia was prepared with a reamer and a keel punch and lug holes. The knee was then brought into extension and the patella was measured as 21mm. Using the patellar clamp and cut guide, this was resected to a flat surface with at least 13mm of thickness remaining. The size 32 patella fit the best. This was oriented and then clamped into position. The lugs were drilled. The trial components were removed. The final components were opened on the back table. The periosteal and capsular tissues, especially posteriorly, around the knee were then systematically injected with a periarticular cocktail consisting of 50cc 0.25% Marcaine, 30mg Ketorolac, 20cc of Exparal and 50cc of injectable saline. The knee was thoroughly irrigated with a pulse lavage and dried. Irrisept was also used to irrigate the tissues. On the back table, with the implants opened, the cement was mixed. One batch of high viscosity cement was prepared with vacuum assistance. After the cement was ready a small amount was placed on the cut surface of the patella and the patellar button was clamped into position and held. While the cement was hardening, the cementless knee components were placed. Starting with the tibial component, the tibia was subluxed anteriorly and the lug holes of the component were lined up. The tibia was then impacted with an impactor and mallet until the tibial component was in contact with the tibia. The final polyethylene component was inserted. Then, the femoral component was inserted. The lug holes were aligned and the component was impacted into position. The knee was irrigated with Irrisept chlorhexadine solution. This was allowed to sit in the knee for 3 minutes. After the cement had finally cured, approximately 15min, the clamp was removed from the patella and the knee was taken through range of motion. The patella was tracking with a no-thumbs technique. The capsule was then reapproximated with a No. 1 Vicryl at multiple locations. The capsule was finally closed with a No. 2 Stratafix, barbed suture. The second dosing of 1g TXA was started. Deep tissues were then reapproximated with 0 Vicryl and 2-0 Vicryl. The skin was closed with a running 3-0 Monocryl in a subcuticular fashion. This was reinforced with skin glue. A Mepilex silver dressing was applied along with a [id number] AFSHAN wrap. A CryoCuff was applied. Laura was transferred to the hospital bed without difficulty an suffering no apparent complication. Laura has a good prognosis. She does have a history of hematogenous infection on the right knee so I will discharge her with extended prophylactic antibiotics in the form of Cefadoxil 500mg BID. Physical therapy will start today and without restrictions, weight-bearing as tolerated. Aspirin 81mg BID will be used for DVT prophylaxis.
--- NOTE | 2021-03-27 10:20 | W.ANESPOSTOP ---
Postoperative Evaluation Date, Time and Location Date Performed: 03/27/21 Time Performed: 10:20 Patient Location: PACU Vital Signs Most Recent Imported Vital Signs: Most Recent Vital Signs Temp Pulse Resp BP Pulse Ox 36.2 C L 72 16 118/45 L 95 03/27/21 10:00 03/27/21 10:00 03/27/21 10:00 03/27/21 10:00 03/27/21 10:00 Pain Score Most Recent Pain Score: Most Recent Pain Score Pain Level 0 03/27/21 10:00 Assessment Mental Status: Awake (Alert & Oriented to Patient Baseline) Airway and Respiratory Function: Patent airway with normal (patient baseline) respiratory exam Cardiovascular Function: Hemodynamically Stable Hydration Status: Adequately Hydrated Nausea & Vomiting: No Nausea or Vomiting Pain: Pt. Denies Any Pain Peripheral Nerve Block: Regional nerve block not resolved at time of post operative discharge
--- NOTE | 2021-03-27 11:40 | IN_ITS ---
Date of service: 03/27/21 Time of Service: 11:40 PT Notes Visit Reasons: Left Knee DJD Physical Therapy Day Surgery Initial Evaluation Date: 03/27/2021 Referring Doctor: Frandy Trevino MD PT Orders: PT CONSULT: Status post Ortho surgery Precautions: WBAT on left LE with AD. Patient Profile/Admitting Diagnosis: Julissa is a 70-year-old female with degenerative joint disease of the left knee and status post left total knee arthroplasty on postoperative day 0. PMHX: Medical History (Updated 03/19/21 @ 14:00 by Nicole Silva) Acid reflux disease a. s/p gastropexy for a large paraesophageal hernia 2010 Acute internal derangement of left knee Complication of anesthesia (11/13/13) Pt. states she is unaware of this CVA (cerebral vascular accident) 2015: admitted here, symptoms resolved after 6 days, on ASA now Depressive disorder anxiety DVT (deep venous thrombosis) right posterior tibial vein 08/07/2017 Family history of dblth-9-whmxvucfesn deficiency (08/26/14) Pt tested neg Foot pain (04/22/14) left (Jo 01/17) Heel pain, chronic Hiatal hernia (03/01/10) 02/13 PARAESOPH HERNIA REPAIR ([facility]) Hyperglycemia (08/19/14) pt. 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 last EKG 2017 Tear of medial meniscus of left knee, current TIA (transient ischemic attack) 2015 Tubular adenoma (06/23/15) Vertigo (08/26/14) MRI/[facility] [place], left basal ganglia infarct and left vertebral artery narrowing Vertigo, labyrinthine (08/19/14) A. severe vertigo and nausea with vomiting Surgical History Acute medial meniscal injury of left knee repaired [facility] 07/23/2019 EGD - MAC (11/05/16) GASTROPLEXY [facility]; large paraesophageal hernia H/O surgical procedure a. gastropexy b. vaginal hysterectomy c. left foot surgery History of appendectomy 07/07/2009 History of total knee arthroplasty Right knee 07/08/2017 Status post foot surgery Status post repair of paraesophageal diaphragmatic hernia Status post vaginal hysterectomy Vaginal hysterectomy (~1984) Social History/Home Situation: Lives with in a private home with a ramp to enter. No other stairs inside the house. Has family members who live close by and can readily help as needed. Fell once in the past 12 months. Equipment Owned/DME: [employer], ramp to enter Subjective: Denies pain in the left knee. Did complain of feeling different at the start of ambulation activity from bed to bathroom but resolved later in the walk. Denies headache, chest pain, and dizziness throughout session. Did indicate numbness in the front inner side of the Objective: General Observation: FASHAN wraps to left LE. Cryo/Cuff on left knee. IV in right UE. Mental Status: Alert and oriented x4 Pain: Denies ROM: Right Lower Extremity: Hip flexion WFL. Hip abduction WFL. Knee flexion WFL. Ankle dorsiflexion WFL. Ankle plantarflexion WFL. Left Lower Extremity: Hip flexion WFL. Hip abduction WFL. Knee flexion 0 to 95 degrees. Knee extension 95 degrees to 0. Ankle dorsiflexion WFL. Ankle plantarflexion WFL. Strength: Right Lower Extremity: Hip flexors 5/5. Hip abductors 5/5. Knee flexors 5/5. Knee extensors 5/5. Ankle dorsiflexors 5/5. Ankle plantarflexors 5/5. Left Lower Extremity:Hip flexors 4/5. Hip abductors 4/5. Knee flexors 3-/5. Knee extensors 3/5. Ankle dorsiflexors 5/5. Ankle plantarflexors 5/5. Sensation: Numbness reported on the anterior medial aspect of left knee. Bed Mobility/Transfers: Supine to sit supervision Sit to stand standby assist Stand to sit standby assist Bed to chair standby assist Gait: Tolerated level surface ambulation of 150 feet using front wheeled walker with step through gait pattern requiring only standby assist. Initially reported feeling unwell but better later in the walk. Denies headache, chest pain dizziness throughout. Balance: Static Sitting: Normal Dynamic Sitting: Normal Static Standing: Fair Dynamic Standing: Fair Special Tests: Mobility Limitations Standardized Measure [facility] AM-PAC 6 clicks Basic Mobility Inpatient Short Form: Raw Score: 23 CMS Score: 11% deficit Informed Consent/Education: Patient instructed in purpose of PT consult. Packet containing TKA exercise protocol has been given to patient. Education and training on initial set of exercises that can be done at home have been completed with patient. Assessment: Patient requires the use of front wheeled walker for all mobility ADL performance to maximize independence and reduce fall risk at home. Patient will have support from and family members as needed. Patient presents with clinical signs and symptoms consistent with current/admitting diagnoses that have resulted to mobility limitations, gait instability, generalized weakness, and impairment of motor control as demonstrated by the following impairment level findings: 1. Decreased strength to left knee flexors 2. Impaired standing balance 3. Limitation of joint range of motion in left knee Impairments are contributing to the following functional limitations: 1. Inability to safely ambulate without assistive device 2. Increase completion time for mobility ADL performance 3. Increased fall risk Patient is assessed as a 83631 moderate complexity based on the following: History: 70-year-old female with impairment level findings, functional limitations, and past medical history as indicated above Examination: Demonstrable impairment in strength, balance, and mobility level with underlying impairments and functional limitations as documented above Presentation: Stable Decision Makin moderate complexity Goals: N/A. PT evaluation and 1-2 treatment sessions only for functional mobility training using recommended AD and for HEP instruction. Plan of Care/Treatment Plan: N/A. PT evaluation and 1-2 treatment session only for functional mobility training using recommended AD and for HEP instruction. DISCHARGE RECOMMENDATIONS: Home when medically cleared by orthopedic surgeon. Outpatient PT services to facilitate return to independent community ambulation without an assistive device. TREATMENT CODE/TIME: 36252 x 15 minutes, 20671 x 10 minutes beginning at 11:40 AM. Thank you for the opportunity to participate in the care of this patient. Emilia Hernandez PT, DPT, CLT [facility] [place], [place]
--- NOTE | 2021-03-27 14:06 | W.PM.DSUDISC ---
Discharge Plan Disposition Patient Disposition: HOME Condition: Good Discharge Details Reason For Visit: Left Knee DJD Attending Provider: Frandy Trevino Primary Care Provider: Katie Schafer Home Meds and New Rx's Prescriptions: New cefadroxil 500 mg capsule 500 mg PO BID Qty: 14 RF: 0 acetaminophen 500 mg tablet 1,000 mg PO Q8H PRN (Reason: pain) Qty: 90 RF: 3 aspirin 81 mg tablet,delayed release (DR/EC) 81 mg PO BID Qty: 60 RF: 0 docusate sodium [Colace] 100 mg capsule 100 mg PO BID PRNQty: 10 RF: 0 gabapentin 300 mg capsule 300 mg PO QHS Qty: 7 RF: 0 oxycodone 5 mg tablet 5 mg PO Q4H Qty: 18 RF: 0 meloxicam 15 mg tablet 15 mg PO DAILY Qty: 30 RF: 0 Continued multivitamin [Multi-Day] 1 EACH tablet 1 ea PO DAILY RF: 0 calcium carbonate-vitamin D3 1 EACH tablet 1 ea PO DAILY RF: 0 VITAMIN B COMPLEX 1 EACH tablet 1 ea PO DAILY RF: 0 Cane Qty: 1 RF: 0 paroxetine HCl 40 mg tablet 40 mg PO DAILY Qty: 90 RF: 3 fluticasone propionate [Flonase Allergy Relief] 50 mcg/actuation spray,suspension 2 spray intranasal DAILY Qty: 15.8 RF: 4 pantoprazole [Protonix] 40 mg tablet,delayed release (DR/EC) 40 mg PO DAILY Qty: 90 RF: 3 atorvastatin 40 mg tablet 40 mg PO QPM Qty: 90 RF: 4 trazodone 50 mg tablet 50 mg PO QHS PRN (Reason: sleep) Qty: 90 RF: 4 sennosides [Senokot] 1 TAB tablet 1 tab PO BID PRN PRNRF: 0 ascorbic acid (vitamin C) [Vitamin C] 1,000 mg Tablet 1,000 mg PO PRN PRNRF: 0 Discontinued aspirin [Adult Low Dose Aspirin] 81 mg tablet,delayed release (DR/EC) 81 mg PO DAILY RF: 0 acetaminophen [Mapap Extra Strength] 500 MG tablet 500 mg PO Q6H Qty: 100 RF: 3 Discharge Instructions Additional Instructions: Total Knee Discharge Instructions Activity: The most important activity is to walk. You should try to take short walks a few times a day. It is important that when resting you work on keeping the knee straight. Avoid putting a pillow behind the knee as this will encourage flexion. Work on range of motion exercises as provided by Physical Therapy. If you have the [employer] bike coming, this will be your primary tool for exercise after the knee replacement. You should use it and follow the directions for the knee. Utilize the other exercises sparingly based on your symptoms. - Start outpatient physical therapy within 2 weeks. - You should wear the GILBERTO hose on both legs for 2 weeks. You may remove these at night. You may also use any compression sock in place of the GILBERTO hose. - Utilize [employer] to review exercises, see videos on exercises and obtain basic information pertaining to your surgery and your recovery. Dressing: Remove the Timoteo wrap by 2 days after your surgery and put on the GILBERTO stocking given to you from the hospital. Keep the surgical dressing (underneath the TIMOTEO wrap) in place for at least one week. After the first week it may be removed and replaced with light gauze and tape or nothing. The wound and dressing may get wet after 3 days but avoid soaking the dressing or otherwise it will need to be changed. Many people prefer covering the dressing with cling wrap (saran wrap) to minimize it from getting soaked. If it gets wet, just pat dry. If it starts to peel off then it will need to be changed. Medications: - You should take Tylenol and anti-inflammatory, Meloxicam, as your primary pain control medications. If the Meloxicam is too expensive or not covered, please call the office for another alternative (Advil/Ibuprofen or Naproxen/Aleve) - You have been prescribed a stronger pain medication Oxycodone for breakthrough pain, take as needed as prescribed. - You should continue your stomach acid reduction agent Pantoprozole to help reduce stomach acid and reflux. - You have been prescribed Gabapentin to take at night for restlessness and nerve pain. - You will be taking Aspirin 81mg twice a day for DVT prevention unless instructed otherwise. - You will have one week of prophylactic antibiotics, Cefadroxil 500mg twice a day - If you have constipation you should take Colace or Miralax (both [id number]). It takes most people 3-4 days to have a bowel movement. Follow-up: 2 weeks If you have any acute concerns or questions, please do not hesitate to contact the office at [phone]. You may contact Dr. Trevino with any questions after hours through the hospital at [phone] or on his cell phone at [phone]. Stand Alone Forms: Anesthesia Discharge Inst. Referrals: Frandy Trevino MD [ [facility] STAFF PHYSICIAN] - Equipment/Supplies: Walker Activity:: Activity as Tolerated Remove Dressings/Wound Care:: Do Not Remove Shower/Bathe:: 72 hours Discharge Orders Discharge Orders: Discharge Order (Routine); Ordered 03/27/21 Ordered By: Frandy Trevino Discharge Data Discharge Date/Time-TO BE ENTERED AT DEPARTURE: 03/27/21 12:50 Discharge Comment: Pt belongings sent home w/ Pt. DS: Diagnosis Discharge Diagnosis (1) Primary osteoarthritis of left knee: Status: Chronic
== END 2021-03-27 12:50 | disposition home or self-care (01) ==
PROVIDERS: PCP Nurse Practitioner; Visit Provider Student in an Organized Health Care Education/Training Program
PROC: (CPT 27447; principal; 2021-03-27 07:30)
DX: M17.12 Unilateral primary osteoarthritis, left knee (principal); R13.10 Dysphagia, unspecified; E78.5 Hyperlipidemia, unspecified
CPT/HCPCS: 27447; C1776; 97162; 97530; J0690; J1100; J1885; J2001; J2405

== ENCOUNTER → 2021-04-03 10:26 | Outpatient (BNVA) | payer OTHER, SELFPAY | PROVIDERS: PCP Nurse Practitioner; Referring Provider Nurse Practitioner; Visit Provider Surgery | DX: K21.9 Gastro-esophageal reflux disease without esophagitis (principal); D12.6 Benign neoplasm of colon, unspecified; R13.10 Dysphagia, unspecified | CPT/HCPCS: 99212; 99442 ==

== ENCOUNTER 2021-04-09 16:26 | Outpatient (CLI) | payer OTHER, SELFPAY ==
--- NOTE | 2021-04-09 13:45 | DI.RAD_ITS ---
Exam(s) XR KNEE LT 1V EXAM: XR KNEE LT 1V INDICATION: 1st post op L TKA. COMPARISON: CR XR KNEE LT 3V AP,LAT,STEPH from 09/22/2020 CR XR STANDING ALIGNMENT from 04/09/2021 CR XR STANDING ALIGNMENT from 04/09/2021 TECHNIQUE: 2D digital imaging was performed. FINDINGS: Single lateral view shows a left total knee prosthesis with satisfactory alignment. Residual postsur gical anterior soft tissue swelling. DATA REPOSITORY: RADIATION DOSE DELIVERED:
--- NOTE | 2021-04-09 13:45 | DI.RAD_ITS ---
Exam(s) XR STANDING ALIGNMENT EXAM: XR STANDING ALIGNMENT CLINICAL HISTORY: 1ST POST OP L TKA. TECHNIQUE: 2D digital imaging was performed. Standing AP views were performed from the pelvis throu gh the ankles. COMPARISON: CR BONE LENGTH from 07/25/2017 FINDINGS: BONES: No acute fracture is present. No bony destructive lesion is seen. JOINTS: Knees: Bilateral total knee prostheses The hip joints are unremarkable.There is symmetric mild narrowing of the tibiotalar joint spaces. SOFT TISSUE: Abundant subcutaneous fat. IMPRESSION: Bilateral total knee prostheses. No significant leg length discrepancy. DATA REPOSITORY: RADIATION DOSE DELIVERED:
== END 2021-04-09 16:27 | disposition home or self-care (01) ==
LOC: DIORS 16:26
PROVIDERS: PCP Nurse Practitioner; Referring Provider Nurse Practitioner; Visit Provider Student in an Organized Health Care Education/Training Program
DX: Z96.652 Presence of left artificial knee joint (principal); Z47.1 Aftercare following joint replacement surgery
CPT/HCPCS: 73560; 77073

== ENCOUNTER 2021-04-30 00:32 | Outpatient (CLI) | payer OTHER, SELFPAY ==
--- NOTE | 2021-04-30 15:11 | DI.MAMMO_ITS ---
Exam(s) MAMMO SCREENING EXAM: MAMMO SCREENING CLINICAL HISTORY: screening,z12.39. TECHNIQUE: Bilateral full field digital CC and MLO mammographic images were obtained with 3D tomosyn thesis and utilizing computer aided detection (CAD). COMPARISON: Prior mammograms dating back to 2012, the most recent being April 2020. FINDINGS: There are no CAD designations. No new significant radiograph findings in left breast. In the right breast there is an asymmetric-possible nodule seen on the 3D cc view located 7 cm in fro m the nipple, slightly lateral center and measuring 7 x 5 millimeters. No malignant-appearing microc alcification groups is region or elsewhere in either breast. There is no significant architectural distortion nor skin thickening-retraction. IMPRESSION: 1. No radiographic evidence of malignancy in left breast. 2. Asymmetric density-possible nodule in the right breast. Spot compression CC view and possible ult rasound recommended. BI-RADS Category 0 - Assessment Incomplete: Need additional imaging evaluation Breast Density - Category B - Scattered areas of fibroglandular density Breast density Category C or D implies that the patient has dense breast tissue. Dense breast tissue can make it harder to find cancer on a mammogram. Dense breast tissue is also associated with an incr eased risk of breast cancer. This information about the result of the mammogram report was provided to the patient to raise their awareness. Use this report when you speak with the patient about their risks for breast cancer, which includes their family history. At that time, you may recommend additional screening tests (Ultrasoun d or MRI) as these tests may add significant information. A negative radiographic report should not delay biopsy if a dominant or clinically suspicious mass is present. Up to ten percent of cancers are not identified on mammography. A negative report may reinforce clinical impression. Adenosis and dense breasts may obscure an underlying neoplasm. False positive reports average 6 to 10%. Patient will receive a letter notifying them of these results.
== END 2021-04-30 00:52 ==
PROVIDERS: PCP Nurse Practitioner; Visit Provider Nurse Practitioner
DX: Z12.31 Encounter for screening mammogram for malignant neoplasm of breast (principal); R92.8 Other abnormal and inconclusive findings on diagnostic imaging of breast
CPT/HCPCS: 77063; 77067

== ENCOUNTER → 2021-05-07 13:41 | Outpatient (BNVA) | payer OTHER, SELFPAY | PROVIDERS: PCP Nurse Practitioner; Visit Provider Student in an Organized Health Care Education/Training Program | DX: Z47.1 Aftercare following joint replacement surgery (principal); Z96.652 Presence of left artificial knee joint ==

== ENCOUNTER 2021-05-12 15:51 | Outpatient (REF) | payer OTHER, SELFPAY ==
[2021-05-12 18:19] LABS: Bilirubin Negative (Negative); Blood Large (Negative); Clarity Cloudy (Clear); Glucose Negative (Negative); Ketones Negative (Negative); Leukocyte Esterase Small (Negative); Nitrite Positive (Negative); Specific Gravity >= 1.030 (1.005-1.025); Urobilinogen 0.2 EU/dL (Up TO 0.2); pH 5.5 (5-8)
[2021-05-12 18:28] LABS: Bacteria Many HPF (Negative); Casts 0-2 Hyaline LPF (Negative); Crystals Negative HPF (Negative); Epithelial Cells Few HPF (Negative); Mucus Heavy (Negative); RBC 20-50 HPF (0-2)
[2021-05-12 18:29] LABS: C & S Indicated? Yes
== END 2021-05-12 15:52 | disposition home or self-care (01) ==
LOC: NCHCN 15:51
PROVIDERS: PCP Nurse Practitioner; Visit Provider Physician Assistant
DX: N39.0 Urinary tract infection, site not specified (principal)
CPT/HCPCS: 87077; 81003; 81015; 87086; 87186

== ENCOUNTER 2021-05-14 00:18 | Outpatient (CLI) | payer OTHER, SELFPAY ==
--- NOTE | 2021-05-14 | DI.US_ITS ---
Exam(s) MG MAMMO SCREEN CALL BACK UNI US BREAST RT LIMITED EXAM: MG MAMMO SCREEN CALL BACK UNI and U/S breast RT limited CLINICAL HISTORY: ASYMMETRIC DENSITY-POSSIBLE NODULE RT BREAST. TECHNIQUE: Craniocaudal and mediolateral oblique Full Field Digital Mammography views of the right b reast with Computer Aided Diagnosis followed by Tomosynthesis and right breast ultrasound. COMPARISON: Priors available for comparison. FINDINGS: Mammography/Tomosynthesis: Masses/Architectural Distortion: The nodule seen in the outer right breast does not seem to persist o n the additional views. Microcalcifictions: No suspicious pleomorphic-type are seen. Skin Thickening/Nipple Retraction: None. Right breast US: The upper outer and lower outer quadrants of the right breast were evaluated sonogra phically. Echotexture: Normal appearance of the glandular tissue. Shadowing: No suspicious foci. Cyst: There is a 0.4 x 0.3 x 0.3 cm cyst at the of the right breast 6 cm from the nipple. Solid lesions: None seen. Ductal dilation: None. IMPRESSION: 1. No evidence of malignancy is noted. 2. A six-month follow-up right mammogram is recommended for re-evaluation. 3. The findings were discussed with the patient on the date of the examination. BI-RADS Category 3 - 6 month - Probably Benign Finding: Recommend follow-up imaging in 6 months Breast Density - Category B - Scattered areas of fibroglandular density Breast density Category C or D implies that the patient has dense breast tissue. Dense breast tissue can make it harder to find cancer on a mammogram. Dense breast tissue is also associated with an incr eased risk of breast cancer. This information about the result of the mammogram report was provided to the patient to raise their awareness. Use this report when you speak with the patient about their risks for breast cancer, which includes their family history. At that time, you may recommend additional screening tests (Ultrasoun d or MRI) as these tests may add significant information. A negative radiographic report should not delay biopsy if a dominant or clinically suspicious mass is present. Up to ten percent of cancers are not identified on mammography. A negative report may reinforce clinical impression. Adenosis and dense breasts may obscure an underlying neoplasm. False positive reports average 6 to 10%. Patient will receive a letter notifying them of these results.
== END 2021-05-14 00:38 ==
PROVIDERS: PCP Nurse Practitioner; Visit Provider Nurse Practitioner
DX: Z12.31 Encounter for screening mammogram for malignant neoplasm of breast (principal); R92.8 Other abnormal and inconclusive findings on diagnostic imaging of breast; N60.01 Solitary cyst of right breast
CPT/HCPCS: 76642; 77063; 77067

== ENCOUNTER 2021-06-08 00:18 | Outpatient (CLI) | payer OTHER, SELFPAY ==
--- NOTE | 2021-06-08 07:45 | DI.DEXA_ITS ---
Exam(s) XR DEXA BONE DENSITY W/WO JUAN EXAM: XR DEXA BONE DENSITY W/WO JUAN CLINICAL HISTORY: screening for osteoporosis in postmenopausal woman,z78.0 TECHNIQUE: COMPARISON: No exams were available for comparison FINDINGS: Lateral Spine Image: Unremarkable. No compression deformities identified. Left hip: Total T-Score: -2.6 Total Z-Score: -1.0 T- and Z-scores: Findings consistent with osteoporosis. Lumbar Spine: Total T-Score: -3.2 Total Z-Score: -0.9 T- and Z-scores: Findings consistent with osteoporosis. IMPRESSION: Osteoporosis in the lumbar spine and left hip.
== END 2021-06-08 00:38 ==
PROVIDERS: PCP Family Medicine; Visit Provider Nurse Practitioner
DX: Z78.0 Asymptomatic menopausal state (principal); Z13.820 Encounter for screening for osteoporosis; M81.0 Age-related osteoporosis without current pathological fracture
CPT/HCPCS: 77080

== ENCOUNTER 2021-06-08 04:02 | Outpatient (CLI) | payer OTHER, SELFPAY ==
[2021-06-08 15:02] LABS: Calculated LDL 48 mg/dL (<100); Cholesterol 129 mg/dL (<200); HDL Cholesterol 57 mg/dL (40-60); Triglyceride 122 mg/dL (<150)
== END 2021-06-08 04:03 | disposition home or self-care (01) ==
LOC: LBO 04:02
PROVIDERS: PCP Family Medicine; Visit Provider Family Medicine
DX: E78.5 Hyperlipidemia, unspecified (principal)
CPT/HCPCS: 36415; 80061

== ENCOUNTER 2021-06-15 17:55 | Outpatient (REF) | payer OTHER, SELFPAY | END 2021-06-15 17:56 | disposition home or self-care (01) | LOC: LBN 17:55 | PROVIDERS: PCP Family Medicine; Visit Provider Obstetrics & Gynecology | DX: R30.0 Dysuria (principal) | CPT/HCPCS: 87077; 87086; 87186 ==

== ENCOUNTER → 2021-06-18 13:48 | Outpatient (BNVA) | payer OTHER, SELFPAY | PROVIDERS: PCP Family Medicine; Visit Provider Student in an Organized Health Care Education/Training Program | DX: Z47.1 Aftercare following joint replacement surgery (principal); Z96.652 Presence of left artificial knee joint ==

== ENCOUNTER 2021-07-17 00:55 | Outpatient (CLI) | payer OTHER, SELFPAY ==
--- NOTE | 2021-07-17 07:15 | DI.US_ITS ---
Exam(s) US PELVIS TRANSVAGINAL EXAM: US PELVIS TRANSVAGINAL CLINICAL HISTORY: re-check ovaries,complex ovarian cyst,n83.299 TECHNIQUE: Ultrasound performed using standard protocol. COMPARISON: US US BREAST RT LIMITED from 05/14/2021 FINDINGS: Pelvic ultrasound was performed transabdominally and transvaginally. Patient has had a prior hystere ctomy. No free fluid in the pelvis. Limited scanning of the kidneys is unremarkable except for previously described multiple left renal c ysts, the largest measuring about 4.2 cm in diameter. Right ovary measures 23 x 19 x 21 millimeters and contains multiple small simple cysts period Left ovary measures 31 x 26 x 29 millimeters and contains a 22 millimeter in diameter cyst, this was about 23 millimeters in greatest diameter on prior examination of May 04, 2020. IMPRESSION: Stable small bilateral ovarian cysts. Otherwise unremarkable examination. DATA REPOSITORY:
== END 2021-07-17 01:15 ==
PROVIDERS: PCP Family Medicine; Visit Provider Obstetrics & Gynecology
DX: N83.201 Unspecified ovarian cyst, right side (principal); N83.202 Unspecified ovarian cyst, left side
CPT/HCPCS: 76830; 76856

== ENCOUNTER 2021-09-27 02:42 | Outpatient (RCR) | payer OTHER, SELFPAY ==
[2021-09-27] MEDS: ZOLEDRONIC ACID/MANNITOL/WATER 5 MG/100 ML BTL 300 MG IVPB (09:07)
[2021-09-27] MEDS: Normal Saline Flush 10 ML SYR IVP (09:08)
== END 2021-10-04 23:59 | disposition home or self-care (01) ==
LOC: INF 02:42
PROVIDERS: PCP Family Medicine; Visit Provider Family Medicine
DX: M81.0 Age-related osteoporosis without current pathological fracture (principal)
CPT/HCPCS: 96365; J3489

== ENCOUNTER 2021-11-06 13:24 | Outpatient (CLI) | payer OTHER, SELFPAY ==
--- NOTE | 2021-11-06 13:00 | DI.RAD_ITS ---
Exam(s) XR KNEE LT 1V EXAM: XR KNEE LT 1V CLINICAL HISTORY: acute pain. TECHNIQUE: 2D digital imaging was performed. COMPARISON: CR XR KNEE LT 2V AP,LAT from 11/06/2021 FINDINGS: Single merchant's view There has been patellar resurfacing. Otherwise unremarkable and no patellar displacement. IMPRESSION: DATA REPOSITORY: RADIATION DOSE DELIVERED:
--- NOTE | 2021-11-06 13:15 | DI.RAD_ITS ---
Exam(s) XR KNEE LT 2V AP,LAT EXAM: XR KNEE LT 2V AP,LAT CLINICAL HISTORY: acute fall. TECHNIQUE: 2D digital imaging was performed. COMPARISON: CR XR STANDING ALIGNMENT from 04/09/2021 CR XR KNEE LT 1V from 04/09/2021 FINDINGS: Two views There is stable position alignment of of left knee prosthesis. No acute fracture or loosening eviden t. There is some irregularity cortical surface of the outer aspect of the medial femoral condyle but thi s is unchanged from 04/09/2021. IMPRESSION: Stable appearance. DATA REPOSITORY: RADIATION DOSE DELIVERED:
== END 2021-11-06 13:25 | disposition home or self-care (01) ==
LOC: DIORS 13:24
PROVIDERS: PCP Family Medicine; Referring Provider Family Medicine; Visit Provider Physician Assistant Surgical
DX: Z96.652 Presence of left artificial knee joint (principal); M25.562 Pain in left knee
CPT/HCPCS: 99214; 73560

== ENCOUNTER 2021-11-13 00:17 | Outpatient (CLI) | payer OTHER, SELFPAY ==
--- NOTE | 2021-11-13 08:30 | DI.MAMMO_ITS ---
Exam(s) MG MAMMO DIAGNOSTIC UNI EXAM: MAMMO DIAGNOSTIC UNI CLINICAL HISTORY: abnormal mammo, R92.8, Z09, 6 MO F/U RT MAMMO. TECHNIQUE: Unilateral spot mammographic images were obtained with 3D tomosynthesis technique and uti lizing computer aided detection (CAD). COMPARISON: Prior mammograms were reviewed, the most recent being April 2021.. Also reviewed diagnostic study of 05/14/2021 including ultrasound and mammographic views FINDINGS: Right breast mammogram today no longer reveals the finding described on the 04/30/2021 study (which w as also less evident on spot compression view performed 05/14/2021). There are no new spiculated masses nor malignant-appearing microcalcification groups in the right richard ast. There is no new architectural distortion nor skin thickening-traction. IMPRESSION: No radiographic evidence of malignancy in the right breast. Appropriate follow-up is keep this patient on her yearly mammogram schedule, this implying that her n ext bilateral mammogram would be in April 2022. At that time I also recommend repeating the ultras ound examination, this to restudy the finding described in the right breast on the ultrasound of 02/2021.. The patient was informed of the findings and follow-up recommendations prior to leaving the [facility] t today. BI-RADS Category 3 - 6 month - Probably Benign Finding: Recommend follow-up mammography in 6 months Breast Density - Category B - Scattered areas of fibroglandular density Breast density Category C or D implies that the patient has dense breast tissue. Dense breast tissue can make it harder to find cancer on a mammogram. Dense breast tissue is also associated with an incr eased risk of breast cancer. This information about the result of the mammogram report was provided to the patient to raise their awareness. Use this report when you speak with the patient about their risks for breast cancer, which includes their family history. At that time, you may recommend additional screening tests (Ultrasoun d or MRI) as these tests may add significant information. A negative radiographic report should not delay biopsy if a dominant or clinically suspicious mass is present. Up to ten percent of cancers are not identified on mammography. A negative report may reinforce clinical impression. Adenosis and dense breasts may obscure an underlying neoplasm. False positive reports average 6 to 10%. Patient will receive a letter notifying them of these results.
== END 2021-11-13 00:37 ==
PROVIDERS: PCP Family Medicine; Visit Provider Nurse Practitioner
DX: R92.8 Other abnormal and inconclusive findings on diagnostic imaging of breast (principal); N64.59 Other signs and symptoms in breast
CPT/HCPCS: 77061; 77065; G0279

== ENCOUNTER → 2021-12-13 10:39 | Outpatient (BNVA) | payer OTHER, SELFPAY | PROVIDERS: PCP Family Medicine; Referring Provider Family Medicine; Visit Provider Student in an Organized Health Care Education/Training Program | DX: W19.XXXA Unspecified fall, initial encounter (principal); S83.92XA Sprain of unspecified site of left knee, initial encounter; Z96.652 Presence of left artificial knee joint | CPT/HCPCS: 99212 ==

== ENCOUNTER 2022-01-09 16:23 | Outpatient (REF) | payer OTHER, SELFPAY ==
--- NOTE | 2022-01-09 16:17 | SKI_PTH ---
PATIENT: Julissa Davis LOC: [facility] U#:[id number] AGE/SX: 71/F ROOM: RE01/09/[address]: Racheal Jimenez : 1950 BED: DIS: 01/09/2022 SPEC #: [id number] RECD: 01/10/22 10:04 STATUS: FRANCISCO REQ #: [id number] JAYLON: 01/09/22 16:[address]: Racheal Jimenez DEPT: Surgical Specimen RECD BY: Fela Ghosh Tissues: 1 - SKIN BIOPSY(SHAVE/PUNCH) Procedures: SKIN LEVEL 4 Comments: [id number]
== END 2022-01-09 16:24 | disposition home or self-care (01) ==
LOC: LBN 16:23
PROVIDERS: PCP Family Medicine; Visit Provider Family Medicine
DX: L57.0 Actinic keratosis (principal)
CPT/HCPCS: 88305

== ENCOUNTER → 2022-01-11 00:58 | Outpatient (CLI) | payer OTHER, SELFPAY ==
--- NOTE | 2022-01-11 09:00 | DI.RAD_ITS ---
Exam(s) XR CHEST 2V PA LATERAL EXAM: XR CHEST 2V PA LATERAL CLINICAL HISTORY: chronic cough,r05.3 TECHNIQUE: 2D digital imaging was performed. COMPARISON: CR XR CHEST 2V PA LATERAL from 05/27/2019 FINDINGS: MEDIASTINUM: Normal. HEART: Normal. PULMONARY VASCULATURE: Normal. LUNGS: Clear. PLEURAL SPACE: No pleural effusion or pneumothorax. BONE:Unremarkable for age. IMPRESSION: No acute abnormality. DATA REPOSITORY: RADIATION DOSE DELIVERED:
== END ==
PROVIDERS: PCP Family Medicine; Visit Provider Family Medicine
DX: R05.3 Chronic cough (principal)
CPT/HCPCS: 71046

== ENCOUNTER 2022-04-01 13:46 | Outpatient (CLI) | payer OTHER, SELFPAY ==
--- NOTE | 2022-04-01 13:15 | DI.RAD_ITS ---
Exam(s) XR KNEE LT 3V AP,LAT,STEPH EXAM: XR KNEE LT 3V AP,LAT,STEPH CLINICAL HISTORY: yearly. TECHNIQUE: 2D digital imaging was performed. Three views. COMPARISON: CR XR KNEE LT 1V from 11/06/2021 CR XR KNEE LT 2V AP,LAT from 11/06/2021 FINDINGS: There has been no change in the alignment of the total knee prosthesis or appearance of the surroundi ng bone. DATA REPOSITORY: RADIATION DOSE DELIVERED:
== END 2022-04-01 13:47 | disposition home or self-care (01) ==
LOC: DIORS 13:47
PROVIDERS: PCP Nurse Practitioner Family; Referring Provider Nurse Practitioner Family; Visit Provider Physician Assistant Surgical
DX: Z96.652 Presence of left artificial knee joint (principal); M25.562 Pain in left knee; W19.XXXA Unspecified fall, initial encounter
CPT/HCPCS: 73562; 99213

== ENCOUNTER 2022-11-18 01:04 | Outpatient (CLI) | payer OTHER, SELFPAY ==
--- NOTE | 2022-11-18 08:00 | DI.MAMMO_ITS ---
Exam(s) MAMMO SCREENING EXAM: MAMMO SCREENING CLINICAL HISTORY: screening,Z12.39 TECHNIQUE: Mammograms were interpreted according to the usual protocol including computer analysis w [employer] CAD system, tomosynthesis and C-view imaging. COMPARISON: 2012 through 2021 FINDINGS: The breasts are composed of scattered fibroglandular densities, Breast Density category B. No suspicious masses or suspicious microcalcifications are seen. No skin thickening or abnormal axillary lymph nodes are seen. There has been no significant change from prior exams. IMPRESSION: BI-RADS Category 1, Negative mammogram Yearly screening mammography is recommended. Breast Density - Category B, scattered fibroglandular densities. A negative radiographic report should not delay biopsy if a dominant or clinically suspicious mass is present. Up to ten percent of cancers are not identified on mammography. A negative report may reinforce clinical impression. Adenosis and dense breasts may obscure an underlying neoplasm. False positive reports average 6 to 10%. Patient will receive a letter notifying them of these results.
== END 2022-11-18 01:24 ==
PROVIDERS: PCP Nurse Practitioner Family; Visit Provider Nurse Practitioner Family
DX: Z12.31 Encounter for screening mammogram for malignant neoplasm of breast (principal)
CPT/HCPCS: 77063; 77067

== ENCOUNTER 2022-11-18 02:00 | Outpatient (RCR) | payer OTHER, SELFPAY ==
[2022-11-18] MEDS: ZOLEDRONIC ACID/MANNITOL/WATER 5 MG/100 ML BTL 300 MG IVPB (11:18)
[2022-11-18] MEDS: Normal Saline Flush 10 ML SYR IVP (11:18)
== END 2022-12-04 23:59 | disposition home or self-care (01) ==
LOC: INF 02:00
PROVIDERS: PCP Nurse Practitioner Family; Visit Provider Nurse Practitioner Family
DX: M81.0 Age-related osteoporosis without current pathological fracture (principal)
CPT/HCPCS: 96365; J3489

== ENCOUNTER → 2022-11-25 12:57 | Outpatient (BNVA) | payer OTHER, SELFPAY | PROVIDERS: PCP Nurse Practitioner Family; Visit Provider Student in an Organized Health Care Education/Training Program | DX: Z47.1 Aftercare following joint replacement surgery (principal); Z96.652 Presence of left artificial knee joint | CPT/HCPCS: 99213 ==

== ENCOUNTER 2022-12-30 16:15 | Outpatient (CLI) | payer OTHER, SELFPAY ==
--- NOTE | 2022-12-30 09:15 | DI.RAD_ITS ---
Exam(s) XR HAND RT COMPLETE EXAM: XR HAND RT COMPLETE CLINICAL HISTORY: Right ring finger swelling M79.89. TECHNIQUE: 2D digital imaging was performed of the right hand. Three images were obtained. AP, late ral and oblique views were obtained. COMPARISON: No exams were available for comparison FINDINGS: BONES: No acute fracture is present. No bony destructive lesion is seen. JOINTS: No dislocation present. There is marked joint space narrowing and osteophyte seen at the PIP joints of the 3rd through 5th fingers and the DIP joints of the 4th and 5th fingers. Mild degenerati ve changes are seen at the 1st CMC joint. SOFT TISSUE: There is soft tissue swelling of the 3rd, 4th and 5th fingers. No soft tissue calcifica tions are seen. 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 DATA REPOSITORY: RADIATION DOSE DELIVERED:
== END 2022-12-30 16:35 ==
LOC: DI 16:17
PROVIDERS: PCP Nurse Practitioner Family; Visit Provider Nurse Practitioner Family
DX: M79.89 Other specified soft tissue disorders (principal); M19.041 Primary osteoarthritis, right hand
CPT/HCPCS: 73130

== ENCOUNTER 2022-12-31 02:12 | Outpatient (CLI) | payer OTHER, SELFPAY ==
[2022-12-31 12:53] LABS: Abs Immature Grans 0.01 10^3/uL (0.0-0.06); Absolute Basophil Count 0.02 10^3/uL (0.0-0.2); Absolute Eosinophil Count 0.11 10^3/uL (0.0-0.7); Absolute Lymphocyte Count 1.64 10^3/uL (1.2-3.4); Absolute Neutrophil Count 2.62 10^3/uL (1.2-6.7); Basophils % 0.4; Eosinophils % 2.2; HCT 40.4 % (36.0-46.0); HGB 13.1 g/dL (11.2-15.7); Immature Grans % 0.2; Lymphocytes % 32.8; MCH 29.5 pg (27.0-33.0); MCHC 32.4 % (32.0-36.0); MCV 91 fL (80-95); MPV 9.1 fL (8.0-11.0); Neutrophils % 52.4; Platelet Count 207 10^3/uL (130-400); RBC 4.44 10^6/uL (3.93-5.22); RDW-SD 40.2 fL
[2022-12-31 12:57] LABS: ESR 2 mm/hr (0-30)
[2022-12-31 14:58] LABS: ALT 37 U/L (14-59); AST 29 U/L (15-37); Albumin 3.8 g/dL (3.4-5.0); Alkaline Phosphatase 49 U/L (46-116); Anion Gap 8.2 mmol/L (3-11); BUN 10 mg/dL (7-18); Bilirubin, Total 0.6 mg/dL (0.2-1.0); CO2 27.8 mmol/L (21.0-32.0); CREATININE 0.8 mg/dL (0.55-1.02); Calcium 9.2 mg/dL (8.5-10.1); Chloride 107 mmol/L (98-107); Estimated GFR 77.27 (mL/min/1.73m2); Glucose 114 mg/dL (74-106); Sodium 143 mmol/L (136-145); Total Protein 6.8 g/dL (6.4-8.2)
[2022-12-31 17:57] LABS: CRP, High Sensitivity <0.34 mg/L (See Note)
== END 2022-12-31 02:13 | disposition home or self-care (01) ==
LOC: LOS 02:12
PROVIDERS: PCP Nurse Practitioner Family; Visit Provider Nurse Practitioner Family
DX: R22.31 Localized swelling, mass and lump, right upper limb (principal)
CPT/HCPCS: 36415; 80053; 85652; 86141; 85025

== ENCOUNTER → 2023-03-03 13:31 | Outpatient (BNVA) | payer OTHER, SELFPAY | PROVIDERS: PCP Nurse Practitioner Family; Referring Provider Nurse Practitioner Family; Visit Provider Surgery | DX: R13.19 Other dysphagia (principal) | CPT/HCPCS: 99212; 99213 ==

== ENCOUNTER 2023-03-26 08:43 | Day surgery (SDC) | payer OTHER, SELFPAY ==
--- NOTE | 2023-03-26 06:36 | PDOC.DSDIS_ITS ---
Date of service: 03/26/23 Time of Service: 11:08 Discharge Plan Disposition Patient Disposition: Home Condition: Stable Discharge Details Reason For Visit: dysphagia Attending Provider: Dana Blair Primary Care Provider: Pao Dover Home Meds and New Rx's Prescriptions: Continued naproxen 375 mg tablet 375 mg PO Q12H PRN (Reason: pain) Qty: 14 0RF paroxetine HCl 40 mg tablet 40 mg PO DAILY Qty: 90 4RF Rx Instructions: 1 TAB DAILY trazodone 50 mg tablet 50 mg PO QHS PRN (Reason: sleep) Qty: 90 4RF atorvastatin 40 mg tablet 40 mg PO QPM Qty: 90 4RF multivitamin [Multi-Day] 1 EACH tablet 1 ea PO DAILY calcium carbonate-vitamin D3 1 EACH tablet 1 ea PO DAILY VITAMIN B COMPLEX 1 EACH tablet 1 ea PO DAILY Cane Qty: 1 0RF Rx Instructions: Please use cane for ambulation support and gait training due to weakness following total knee replacement. pantoprazole 40 mg tablet,delayed release (DR/EC) 40 mg PO DAILY Qty: 90 3RF ascorbic acid (vitamin C) [Vitamin C] 1,000 mg Tablet 1,000 mg PO PRN PRN acetaminophen 500 mg tablet 1,000 mg PO Q8H PRN (Reason: pain) Qty: 90 3RF Discharge Instructions Additional Instructions: Findings: 1. evidence of mild reflux 2. Alin wrap not as tight but still there 3. Benign stomach polyps Follow up: I will order a pH study and manometry at [facility] [place] to try and figure out her symptoms Please call if you develop: fevers >101.5 Nausea or Vomiting Abdominal pain that is not transient Rectal bleeding that is more then a tbsp A hard abdomen and inability to pass gas DAY SURGERY UNIT POST ENDOSCOPY INSTRUCTIONS Instructions for everyone who is given Anesthesia: For your safety, please do the following for the next 24 Hours: a. Do not drive or operate dangerous equipment b. Do not drink alcohol beverages or use any recreational drugs for the first 24 hours or while taking pain medications. The medications in your body may have a reaction that can be dangerous. c. Do not make any important decisions or sign any important papers 1. Generally there are no restrictions on your activity after a day or so has gone by, but you may feel a bit fatigued for a few days. 2. After you arrive home you may have a light meal and return to a normal diet as you can tolerate it without feeling sick to your stomach. 3. After surgery, you may feel pain or discomfort. This should be only transient, but if it persists please contact your doctor. 4. If there are any questions regarding the findings of your procedure, please feel free to contact your doctor. 6. If you are unable to contact your doctor with a problem, contact the hospital at [phone]. 7. Continue all your regular medications unless directed otherwise. I understand the above instructions and have no questions. Signature of Patient or Responsible Adult Escort Date/Time Name of Responsible Adult Escort Signature of Nurse Date/Time Stand Alone Forms: Anesthesia Discharge InstAdilson Chase (DSU) Activity:: Activity as Tolerated Diet:: As Tolerated Discharge Orders Discharge Orders: Discharge Order (Routine); Ordered 03/26/23 Ordered By: Dana Blair DS: Diagnosis Discharge Diagnosis (1) Dysphagia: Status: Acute Asessment and Plan: Patient is seen and examined after their endoscopy. Patient has minimal sore throat. They have been able to tolerate liquids. They do not have any Nausea or Vomiting. They are not having any chest pain or shortness of breath. They have been able to pass gas and are not having any abdominal pain or distention. they have not vomited any blood. The vital signs have been stable-see nursing notes. We discussed findings on their endoscopy We reviewed the importance of lifestyle modifications- see diet recommendations We reviewed any new medications that the patient may be prescribed- see medicine reconciliation. Patient will either be sent a letter with the biopsy results or follow up in the office- see discharge instructions Patient was given explicit instructions for emergency follow up post endoscopy- see discharge instructions Patient verbalized understanding and was discharged in stable and satisfactory condition. See nursing notes.
--- NOTE | 2023-03-26 06:36 | W.PM.ENDDOP ---
Date of service: 03/26/23 Time of Service: 10:14 Endoscopy Report DATE OF PROCEDURE: 03/26/23 PRE-OP DIAGNOSIS: dysphagia POST-OP DIAGNOSIS: same (and gastric polyps) PROCEDURE: EGD with biopsies SURGEON: Dana Blair ANESTHESIA TYPE: General:No Airway ESTIMATED BLOOD LOSS: 3 PATHOLOGY: other (Bx of antrum, and GE junction) COMPLICATIONS: None DISPOSITION: same day INDICATIONS: Laura is a pleasant 72-year-old female with worsening dysphagia.? She has a known history of acid reflux.? She is on Protonix 40 mg daily.? She has difficulty swallowing especially meats.? She has had no unintentional weight loss, hematemesis or changes in bowel habits.? We reviewed the pathophysiology of reflux as well as the procedure itself.? I went over the risks, complications and benefits.? After our discussion the patient had a good understanding of both the procedure as well as the possible complications.? We discussed the increased risk of injury to the esophagus if I have to do a balloon dilatation.? Risks, benefits and complications have been reviewed. Complications include but are not limited to bleeding, pain, perforation, sore throat, aspiration, and adverse reaction to the medications.? Questions were entertained and answered to their satisfaction and they wished to proceed. No guarantees were given or implied. FINDINGS: Evidence of reflux without inflammation Benign gastric polyps PROCEDURE DESCRIPTION: After informed consent was obtained the patient was take to the procedure room and placed in a supine position. Monitors were applied and a time out was done. The patients name, date of , procedure type, allergies to medications and metal in their body was reviewed. A bite block was placed and the patient was sedated. Once sedated and comfortable the gastroscope was advanced through the oropharynx which was grossly normal into the esophagus. The proximal and mid-esophagus were normal. In the distal esophagus there was evidence of reflux without inflammation noted. The scope was advanced into the stomach and through the pylorus into the 3rd portion of the duodenum. The duodenum was noted to be normal. The scope was retracted back into the stomach and biopsies were done to rule out H. pylori. a couple of polyps were removed. There were no ulcers. The scope was retroflexed. The cardia and fundus were noted to be normal. There was evidence of a Alin wrap but it wasent as tight as it should be. The scope was retracted back into the esophagus and biopsies were done of the GE junction to rule out Haynes's. The Z line was regular. The GE junction was at 38 cm. The scope was removed and the patient was woken up and taken back to [facility] in stable condition.
[2023-03-26 08:45] VITALS: BP 127/92; PULSE 84; RESP 18; TEMP 36.6; O2SAT 96
[2023-03-26] MEDS: Lactated Ringers 1,000 ML 80 ML IV (09:25)
--- NOTE | 2023-03-26 09:51 | PGE_ITS ---
Date of Service Date of service: 03/26/23 Time of Service: 09:51 Assessment and Plan Assessment and plan (1) Dysphagia: Status: Acute Assessment and plan: Laura is a pleasant 72-year-old female with worsening dysphagia.? She has a known history of acid reflux.? She is on Protonix 40 mg daily.? She has difficulty swallowing especially meats.? She has had no unintentional weight loss, hematemesis or changes in bowel habits.? We reviewed the pathophysiology of reflux as well as the procedure itself.? I went over the risks, complications and benefits.? After our discussion the patient had a good understanding of both the procedure as well as the possible complications.? We discussed the increased risk of injury to the esophagus if I have to do a balloon dilatation.? Risks, benefits and complications have been reviewed. Complications include but are not limited to bleeding, pain, perforation, sore throat, aspiration, and adverse reaction to the medications.? Questions were entertained and answered to their satisfaction and they wished to proceed. No guarantees were given or implied. 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 NO issues after her colo/EGD Pulmonary risk factors: None Planned procedure: Yes Sleep apnea risks: has Dx of JESSICA. Unable to tolerate CPAP Can climb one flight of stairs (12-13 steps) in less than 30 seconds without stopping and without symptoms: Yes The surgery proposed for this patient is: low risk Active cardiac conditions: none Active risk factors: none ASA (acetylsalicylic acid): not used Beta blockers: not used Proceed with EGD under sedation Qualifiers: Dysphagia type: esophageal phase Qualified Code(s): R13.19 - Other dysphagia (2) Esophageal reflux: Status: Chronic Subjective Subjective Interval history since last seen: I saw Julissa in [facility] today. She tells me that she saw an ENT provider who scoped her and stated that she didn;t have any postnasal drip. She continues to have the dysphagia. She also complains of a burning sensation in her chest, a globus sensation. She has not had any Nausea or vomiting. We discussed the procedure again including possible balloon dilatation. She has had dilatations before for her dysphagia. We reviewed risks and complications again. Exam Const General: cooperative, comfortable and no acute distress Nutritional Appearance: average body habitus Orientation: alert and oriented x3 HENMT Head: normocephalic and atraumatic Resp Effort & Inspection: normal respiratory effort Auscultation: clear to auscultation bilaterally Cardio Rate: regular rate Rhythm: regular rhythm GI Inspection: normal to inspection Palpation: soft Objective Last Vital Signs Temp 97.9 F 03/26/23 08:45 Pulse 84 03/26/23 08:45 Resp 18 03/26/23 08:45 BP 127/92 H 03/26/23 08:45 Pulse Ox 96 03/26/23 08:45 Time Spent with Patient Time Spent with Patient: <25 minutes Time was spent: counseling the patient
--- NOTE | 2023-03-26 09:56 | W.ANESPRE ---
General Info Date of Service Date Performed: 03/26/23 Height: 5 ft 2 in Weight: 72.2 kg Body Mass Index (BMI): 29.1 Surgical Procedure: Operation Date: 03/26/23 09:35 Proposed Procedure Side Surgeon p Gastroscopy Dana Blair MD Meds Allergies and Home Medications Allergies Allergy/AdvReac Type Severity Reaction Status Date / Time amoxicillin trihydrate AdvReac Severe DIARRHEA Verified 03/26/23 09:09 [From Augmentin] morphine AdvReac Severe HEART Verified 03/26/23 09:09 PALPITATIONS amoxicillin [From Augmentin] AdvReac Intermediate diarrhea Verified 03/26/23 09:09 clavulanic acid AdvReac Intermediate diarrhea Verified 03/26/23 09:09 [From Augmentin] Sulfa (Sulfonamide AdvReac Mild PRURITIS Verified 03/26/23 09:09 Antibiotics) Home Medication Medication Instructions Recorded calcium carbonate 600 mg-vitamin 1 ea PO DAILY 10/10/12 D3 5 mcg (200 unit) tablet multivitamin (Multi-Day tablet) 1 ea PO DAILY 10/10/12 Vitamin B Complex 1 ea PO DAILY 04/26/13 ascorbic acid (vitamin C) 1,000 mg 1,000 mg PO PRN PRN 07/23/19 tablet (Vitamin C) acetaminophen 500 mg tablet 1,000 mg PO Q8H PRN pain #90 tabs 03/27/21 atorvastatin 40 mg tablet 40 mg PO QPM #90 tabs 04/03/22 paroxetine HCl 40 mg tablet 40 mg PO DAILY #90 tabs 04/03/22 trazodone 50 mg tablet 50 mg PO QHS PRN sleep #90 tabs 04/03/22 naproxen 375 mg tablet 375 mg PO Q12H PRN pain #14 tabs 04/22/22 pantoprazole 40 mg tablet,delayed 40 mg PO DAILY #90 tabs 04/30/22 release Current Visit Medications: Current Medications Generic Name Dose Route Start Last Admin Trade Name Freq PRN Reason Stop Dose Admin Ringer's Solution 1,000 mls @ 80 mls/hr 03/26/23 06:00 03/26/23 09:25 IV 04/24/23 23:59 80 mls/hr INFUSION AHSAN Administration IV Miscellaneous Supplies 1 each 03/26/23 06:00 Iv Access IV 04/24/23 23:59 DIRECTED AHSAN Ondansetron HCl 4 mg 03/26/23 06:37 Ondansetron 4 Mg/2 Ml Vial IVP 04/25/23 06:36 Q4H PRN PRN Nausea / Vomiting Sodium Chloride 0 ml 03/26/23 06:00 Normal Saline Flush 10 Ml Syr IV 04/24/23 23:59 PRN PRN Sodium Chloride 0 ml 03/26/23 06:00 Normal Saline 10 Ml Vial IJ 04/24/23 23:59 DIRECTED PRN Sterile Water 0 ml 03/26/23 06:00 Water,Injection,Sterile 10 Ml Vial IJ 04/24/23 23:59 DIRECTED PRN PFSH Active Problems Active Problems: Problem Status Onset Code Osteoarthritis of hands, bilateral M19.041, M19.042 Swelling of right ring finger M79.89 Neck and shoulder pain M54.2, M25.519 Depressive disorder F32.9 Allergic rhinitis J30.9 Hyperlipidemia E78.5 Insomnia G47.00 Dysphagia R13.10 Tubular adenoma ~03/2021 D36.9 Esophageal reflux ~03/2021 K21.9 Osteoporosis M81.0 Caregiver stress Z63.6 Chronic right-sided low back pain without sciatica M54.50, G89.29 Left knee sprain S83.92XA Medical History Medical History Acid reflux disease a. 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 Dr Walker, cysts benign, will follow with yearly Complication of anesthesia (11/13/13) Pt. 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 last EKG 2018 Hyperglycemia (08/19/14) pt. states she is unaware of this Infection associated with internal right knee prosthesis (09/15/17) Low back pain (01/13/15) Pes anserinus bursitis of left knee Sleep apnea, obstructive unable to tolerate CPAP due to claustrophobia. Tear of medial meniscus of left knee, current TIA (transient ischemic attack) 2014 Tubular adenoma (06/23/15) Vertigo (08/26/14) MRI/MRA José Miguel, left basal ganglia infarct and left vertebral artery narrowing Surgical History Surgical History Acute medial meniscal injury of left knee repaired [facility] 07/23/2019 EGD - MAC (11/05/16) History of appendectomy 07/07/2009 History of colonoscopy (~03/2021) History of esophagogastroduodenoscopy (EGD) (~03/2021) History of total left knee replacement (03/27/21) History of total right knee replacement (TKR) (07/08/17) Status post foot surgery Status post repair of paraesophageal diaphragmatic hernia Status post vaginal hysterectomy Tobacco Smoking/Tobacco Use Status: Never Passive smoking exposure: No Alcohol Alcohol Intake: never Substance Use Substance use: Never Substance use type: does not use Vital Signs and Lab Results Vital Signs Most Recent Vital Signs in EMR: Most Recent Vital Signs Temp Pulse Resp BP Pulse Ox 36.6 C 84 18 127/92 H 96 03/26/23 08:45 03/26/23 08:45 03/26/23 08:45 03/26/23 08:45 03/26/23 08:45 Lab Results Blood Type / Crossmatch: No Data to Display Complete Blood Count: No Data to Display Complete Metabolic Panel: No Data to Display Liver Function Panel: No Data to Display Coagulation Panel: No Data to Display Cardiac Panel: No Data to Display Arterial Blood Gas: No Data to Display Venous Blood Gas: No Data to Display Pancreas Panel: No Data to Display Thyroid Panel: No Data to Display Infectious Disease: No Data to Display Blood Cultures: No Data to Display Toxicology Panel: No Data to Display Imaging and Studies Imaging and Studies Study information below may be from another EMR and interpreted by another provider. Please see original notes in EMR for more complete details. Echocardiogram Summary: FINDINGS: Technically limited study. Poor endocardial definition. LEFT VENTRICLE/LVEF: LVEF estimated at approximately 60%. Normal size. RIGHT VENTRICLE: Not well visualized. AORTIC VALVE: Trileaf[place], no aortic stenosis or insufficiency. MITRAL VALVE: No mitral stenosis or insufficiency. TRICUSPID VALVE: No tricuspid insufficiency. RSV/PA/RIGHT ATRIAL PRESSURE: Right atrial pressure estimated at < 100 mmHg. PULMONIC VALVE: No pulmonic stenosis or insufficiency. ATRIA: Left atrium, right atrium within normal limits. DIASTOLIC INDICES: E/A ratio < 1. Deceleration time 322 milliseconds. E-prime velocity 8 cm/second. E/E-prime ratio < 15. IVRT < 100 milliseconds. GREAT VESSELS: The inferior vena cava is normal in size and collapses with inspiration. PERICARDIUM: No effusion. RHYTHM: Sinus. Carotid Artery Summary:: IMPRESSION: No evidence of hemodynamically significant cervical carotid artery stenosis. Please refer to the cerebrovascular evaluation worksheet for complete details. Anesthesia Assessment and Plan Anesthesia History Personal History: No History of Anesthesia Complications Family History: No Family History of Anesthesia Complications Exercise Tolerance Exercise Tolerance: Metabolic Equivalents>4 Cardiac & Pulmonary Exam Cardiac Exam: Normal S1/S2 Heart Sounds Pulmonary Exam: Clear Bilateral Breath Sounds Implantable Cardiac Device Does patient have a Pacemaker or an ICD?: No Airway Exam Known Difficult Airway: No Mallampati Class: 2 Mouth Opening: Normal (> 3cm) Thyromental Distance: Greater than 3 cm Neck Range of Motion: Full ROM Neck Circumference: Normal Teeth Condition: Removable Dentures/Plates Upper and Removable Dentures/Plates Lower ASA Classification ASA Score: ASA 2 Emergency Case?: No NPO Status NPO Status: NPO Clears >2 hours, Solids >8 hours Anesthesia Plan Resuscitation Status: Full Code Anesthesia Technique: General Anesthesia Airway Planned: Natural Airway Monitors Used: Standard Monitors
[2023-03-26 09:57] VITALS: BMI 29.1
--- NOTE | 2023-03-26 10:09 | STOM_PTH ---
PATIENT: Julissa Davis LOC: [facility] U#:[id number] AGE/SX: 72/F ROOM: RE03/26/[address]: Dana Blair MD : [id number] BED: DIS: 03/26/2023 SPEC #: [id number] RECD: 03/26/23 12:53 STATUS: FRANCISCO REQ #: [id number] JAYLON: 03/26/23 10:[address]: Dana Blair DEPT: Surgical Specimen RECD BY: Ashley Hernandez ENTERED: 03/26/23 12:59 SP TYPE: STOMACH OTHR DR: Pao Dover, GENERAL OPERATIONS MANAGER Tissues: 1 - STOMACH BIOPSY 2 - STOMACH BIOPSY 3 - ESOPHAGUS BIOPSY Procedures: GROSS AND MICRO LEVEL 4 Comments: [id number]
[2023-03-26 10:20] VITALS: BP 98/58; PULSE 73; RESP 16; TEMP 37; O2SAT 92
[2023-03-26 10:30] VITALS: BP 115/64; PULSE 74; RESP 16; TEMP 37; O2SAT 97
[2023-03-26 10:44] VITALS: BP 122/60; PULSE 69; RESP 18; TEMP 37; O2SAT 95
--- NOTE | 2023-03-26 10:47 | W.ANESPOSTOP ---
Postoperative Evaluation Date, Time and Location Date Performed: 03/26/23 Time Performed: 10:47 Patient Location: Day Surgery Unit Vital Signs Most Recent Imported Vital Signs: Most Recent Vital Signs Temp Pulse Resp BP Pulse Ox 37 C 74 16 115/64 97 03/26/23 10:30 03/26/23 10:30 03/26/23 10:30 03/26/23 10:30 03/26/23 10:30 Pain Score Most Recent Pain Score: Most Recent Pain Score Pain Level 0 03/26/23 08:45 Assessment Mental Status: Awake (Alert & Oriented to Patient Baseline) Airway and Respiratory Function: Patent airway with normal (patient baseline) respiratory exam Cardiovascular Function: Hemodynamically Stable Hydration Status: Adequately Hydrated Nausea & Vomiting: No Nausea or Vomiting Pain: Pt. Denies Any Pain Peripheral Nerve Block: Patient did not receive a nerve block
== END 2023-03-26 11:24 | disposition home or self-care (01) ==
PROVIDERS: PCP Nurse Practitioner Family; Visit Provider Surgery
PROC: 0DJ68ZZ Inspection of Stomach, Via Natural or Artificial Opening Endoscopic (ICD-10-PCS; CPT 43235; principal; 2023-03-26 09:30)
DX: R13.19 Other dysphagia (principal); K31.7 Polyp of stomach and duodenum; K21.9 Gastro-esophageal reflux disease without esophagitis; Z86.73 Personal history of transient ischemic attack (TIA), and cerebral infarction without residual deficits; Z79.899 Other long term (current) drug therapy; Z98.890 Other specified postprocedural states; K22.89 Other specified disease of esophagus
CPT/HCPCS: 43239; 88305; J2001

== ENCOUNTER → 2023-04-09 02:08 | Outpatient (CLI) | payer OTHER, SELFPAY ==
--- NOTE | 2023-04-09 | DI.CT_ITS ---
Exam(s) CT SINUS WO EXAM: CT SINUS WO CLINICAL HISTORY: POSTNASAL DRIP R09.82 SINUSITIS J32.9 DYSPHAGIA R13.10. TECHNIQUE: Imaging Protocol: Axial computed tomography images with coronal and sagittal reformatted images were created and reviewed. No IV Contrast COMPARISON: CT HEAD WITHOUT CONTRAST from 08/19/2014 FINDINGS: MAXILLARY SINUSES: There is significant circumferential mucosal thickening in the right maxillary sinus and there is als o a small probable surgical defect the medial wall the right maxillary sinus. No true bone dehiscenc e. No fluid level. There is opacification of the ipsilateral ostiomeatal region. The opposite-left maxillary sinus is clear without mucosal thickening nor fluid. There is stenosis o f the left ostiomeatal unit at the level of the hiatus semilunaris. There is also aeration of the le ft middle turbinate but this is not obstructive. The thumb oil air cells are clear bilaterally. The re is no significant mucosal thickening nor fluid in the sphenoid sinuses.. Frontal sinuses are kira r mastoid air cells are clear. No effusions. NASAL SEPTUM AND TURBINATES:Nasal septum is midline with no evidence of significant nasal septal spur . Left middle turbinate anup bullosa, nonobstructive. There is no obstruction of the nasal passage s. No polyps evident. IMPRESSION: 1. There is unilateral prominent mucosal thickening in the right maxillary sinus and there appears t o be a surgical defect the medial wall the right maxillary sinus. 2. The opposite-left maxillary sinus is clear as are the other paranasal sinuses and mastoid air rafia ls. RADIATION DOSE DELIVERED: 122.8mGy.cm Total DLP DATA REPOSITORY: All CT scans at this facility are submitted to the National Radiology Data Registry (NRDR) Dose Index Registry (DIR) with the [employer] (A[employer]). RADIATION OPTIMIZATION: All CT scans at this facility use at least one of these dose optimization te chniques: automated exposure control; mA and/or kV adjustment per patient size (includes targeted exa ms where dose is matched to clinical indication); or iterative reconstruction.
== END ==
PROVIDERS: PCP Nurse Practitioner Family; Visit Provider Physician Assistant
DX: R09.82 Postnasal drip (principal); J32.9 Chronic sinusitis, unspecified; R13.10 Dysphagia, unspecified
CPT/HCPCS: 70486

== ENCOUNTER 2023-04-10 05:02 | Outpatient (CLI) | payer OTHER, SELFPAY ==
[2023-04-10 13:55] LABS: Calculated LDL 77 mg/dL (<100); Cholesterol 151 mg/dL (<200); HDL Cholesterol 64 mg/dL (40-60); TSH (W/Ref FT4) 1.81 uIU/mL (0.36-3.74); Triglyceride 53 mg/dL (<150)
[2023-04-14 09:56] LABS: Hepatitis C Ab w Rflx HCV PCR Negative (Negative)
== END 2023-04-10 05:03 | disposition home or self-care (01) ==
LOC: LOS 05:02
PROVIDERS: PCP Nurse Practitioner Family; Visit Provider Nurse Practitioner Family
DX: Z00.00 Encounter for general adult medical examination without abnormal findings (principal)
CPT/HCPCS: 36415; 80061; 86803; 84443

== ENCOUNTER → 2023-04-28 13:34 | Outpatient (BNVA) | payer OTHER, SELFPAY | PROVIDERS: PCP Nurse Practitioner Family; Referring Provider Nurse Practitioner Family; Visit Provider Student in an Organized Health Care Education/Training Program | DX: M19.041 Primary osteoarthritis, right hand (principal) | CPT/HCPCS: 20600; J1020 ==

== ENCOUNTER → 2023-11-17 13:31 | Outpatient (BNVA) | payer OTHER, SELFPAY | PROVIDERS: PCP Family Medicine; Referring Provider Family Medicine; Visit Provider Podiatrist | DX: M79.671 Pain in right foot (principal); R25.2 Cramp and spasm; L60.3 Nail dystrophy; L84 Corns and callosities; M79.672 Pain in left foot | CPT/HCPCS: 99213 ==

== ENCOUNTER 2023-11-25 04:58 | Outpatient (RCR) | payer OTHER, SELFPAY ==
[2023-11-25] MEDS: ZOLEDRONIC ACID/MANNITOL/WATER 5 MG/100 ML BTL 300 MG IVPB (10:09)
[2023-11-25] MEDS: Normal Saline Flush 10 ML SYR IVP (10:10)
== END 2023-12-05 23:59 | disposition home or self-care (01) ==
LOC: INF 04:58
PROVIDERS: PCP Family Medicine; Visit Provider Nurse Practitioner Family
DX: M81.0 Age-related osteoporosis without current pathological fracture (principal)
CPT/HCPCS: 96365; J3489

== ENCOUNTER 2023-12-03 10:33 | Day surgery (SDC) | payer OTHER, SELFPAY ==
[2023-12-03] VITALS (9 sets, daily range): BP systolic 123–145; BP diastolic 58–81; PULSE 73–88; RESP 12–18; TEMP 36.2–36.6; O2SAT 91–97; BMI 28.7
--- NOTE | 2023-12-03 10:00 | PDOC.DSDIS_ITS ---
Date of service: 12/03/23 Time of Service: 10:00 Discharge Plan Disposition Patient Disposition: Home Condition: Good Discharge Details Reason For Visit: ORIF R Wrist Attending Provider: Frandy Trevino Primary Care Provider: Jose Ramos Home Meds and New Rx's Prescriptions: New acetaminophen 500 mg tablet 1,000 mg PO TID Qty: 90 3RF ibuprofen 600 mg tablet 600 mg PO TID PRNQty: 90 3RF oxycodone 5 mg tablet 5 mg PO Q8H MDD 15mg PRN (Reason: pain) Qty: 10 0RF Continued pantoprazole 40 mg tablet,delayed release (DR/EC) 40 mg PO DAILY Qty: 90 3RF paroxetine HCl 40 mg tablet 40 mg PO DAILY Qty: 90 3RF multivitamin [Multi-Day] 1 EACH tablet 1 ea PO DAILY calcium carbonate-vitamin D3 1 EACH tablet 1 ea PO DAILY VITAMIN B COMPLEX 1 EACH tablet 1 ea PO DAILY Cane Qty: 1 0RF Rx Instructions: Please use cane for ambulation support and gait training due to weakness following total knee replacement. fluticasone propionate 50 mcg/actuation spray,suspension 1 spray intranasal BID 90 Days Qty: 3 1RF Rx Instructions: administer into each nostril trazodone 50 mg tablet 50 - 100 mg PO QHS PRN (Reason: sleep) Qty: 180 3RF atorvastatin 40 mg tablet 40 mg PO DAILY Qty: 90 3RF ascorbic acid (vitamin C) [Vitamin C] 1,000 mg Tablet 1,000 mg PO PRN PRN Discontinued naproxen 375 mg tablet 375 mg PO Q12H PRN (Reason: pain) Qty: 30 0RF acetaminophen 500 mg tablet 1,000 mg PO Q8H PRN (Reason: pain) Qty: 90 3RF Discharge Instructions Additional Instructions: Wrist Fracture Fixation Discharge Instructions Activity: You should keep the hand/wrist elevated as much as possible for the first few days. You may use the other fingers as tolerated but avoid trying to do too much too soon. You may perform light activities with the splint in place. Dressing/Cast: Your splint should stay in place at all times. Do NOT get it wet. You may loosen the AFSHAN wrap if you feel it is too tight and then rewrap more loosely. Medications: - You should take Tylenol and Ibuprofen for baseline pain control. - You have been prescribed a stronger pain medication, Oxycodone, for breakthrough pain. - You may apply ice over the wrist, just double bag so it doesn't get wet. Follow-up: 10-14 days Referrals: Frandy Trevino MD [ [facility] STAFF PHYSICIAN] - Equipment/Supplies: Splint Activity:: Elevate Remove Dressings/Wound Care:: Do Not Remove Shower/Bathe:: Cover Diet:: As Tolerated Discharge Orders Discharge Orders: Discharge Order (Routine); Ordered 12/03/23 Ordered By: Neal Middleton DS: Diagnosis Discharge Diagnosis (1) Fracture of right distal radius: Status: Acute
--- NOTE | 2023-12-03 10:16 | W.PREOPHP ---
Documented by User: TRISTIN Atkins 12/03/23 10:59 Assessment and Plan Assessment and plan (1) Fracture of right distal radius: Status: Acute Assessment and plan: ORIF right distal radius. Details of surgery were discussed with patient as well pertinent anatomy and risks including but not limited to risk of infection, blood clot, damage to soft tissue/blood vessels/nerves, bleeding and fracture in detail. All questions were answered. History of Present Illness History of Present Illness Chief Complaint: R wrist injury Narrative: Laura is a 73-year-old female who comes in today for an ORIF of her right distal radius fracture. She states that approximately 3 days ago (11/30/2023) she fell landing on outstretched right wrist causing significant pain in her wrist. She went to the emergency room at [facility] where she was found to have a displaced fracture of her right distal radius. After consulting with Dr. Trevino over the phone, she elects to move forward with an ORIF of her right wrist. Review of Systems Constitutional Constitutional: Denies fever(s) ENT Ears, Nose, Mouth, and Throat: Denies dizziness and Denies sore throat Cardiovascular Cardiovascular: Denies chest pain, Denies palpitations and Denies dyspnea Respiratory Respiratory: Denies cough and Denies dyspnea Gastrointestinal Gastrointestinal: Denies abdominal pain, Denies melena, Denies hematochezia, Denies diarrhea, Denies nausea and Denies vomiting Genitourinary Genitourinary: Denies hematuria and Denies dysuria Neurologic Neurologic: Denies dizziness Endocrine Endocrine: Denies palpitations PFSH All Active Problems (Updated 12/03/23 @ 10:59 by TRISTIN Atkins) Fracture of right distal radius (Acute 11/30/23) S/P ORIF: 12/03/2023 Corns and callosities (Acute) Nail dystrophy (Acute) Cramping of feet (Acute) 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) Right PIP joint injection ~20 mg Depo Medrol: 04/28/23 JESSICA (obstructive sleep apnea) (Chronic) No CPAP Major depressive disorder, recurrent (Chronic) Generalized anxiety disorder (Chronic) Osteoporosis (Chronic) Hyperlipidemia (Chronic) GERD (gastroesophageal reflux disease) (Chronic) Dysphagia (Chronic) Bilateral ovarian cysts (Chronic) Osteoarthritis of hands, bilateral (Chronic) Insomnia (Chronic) Chronic right-sided low back pain without sciatica (Chronic) Sigmoid diverticulosis (Chronic) Allergic rhinitis (Chronic) Medical History Right leg DVT (~2017) CVA (cerebral vascular accident) (~2014) Surgical History S/P medial meniscus repair of left knee (07/13/19) History of colonoscopy (~03/2021) History of esophagogastroduodenoscopy (EGD) (~03/2021) History of total right knee 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 Sister No problems noted. Sister Alcohol use disorder Sister No problems noted. Brother Myocardial infarction Heart disease Brother No problems noted. Brother Alcohol use disorder Leukemia Son Congenital heart defect Son Hypertension Maternal Grandfather , 40s Heart disease Maternal Grandmother , 40s Heart disease Paternal Grandfather , 89 Alcohol use disorder Paternal Grandmother , from eclampsia No problems noted. Social History Smoking/Tobacco Use Status: Never Smoking risk assessment performed?: Yes Alcohol Intake: never Drug use: Never Substance use type: does not use Counseling given: No Caregiver/Support person: No Household members: spouse Housing: house Do you need help understanding health information?: Rarely Pets and animals: No Sexually active: No Do you think of yourself as: straight/heterosexual Current gender identity: female What is your relationship status?: How often do you talk on the phone with friends or family?: three or more times per week How often do you attend gnosticism or gnosticist services?: 1-3 times per year Do you belong to any clubs or organized social groups?: no Panel score (0-1 are the most socially isolated patients): 2 Frequency: 1-2 times per week Crystal/Rastafari: Hindu Seatbelt use: always Drive intox or ride w/intox nascar driver: No Do you feel safe at home: Yes Do you feel safe in your relationship?: Yes Meds Allergies and Home Medications Allergies Allergy/AdvReac Type Severity Reaction Status Date / Time amoxicillin trihydrate AdvReac Severe DIARRHEA Verified 12/03/23 11:05 [From Augmentin] morphine AdvReac Severe HEART Verified 12/03/23 11:05 PALPITATIONS amoxicillin [From Augmentin] AdvReac Intermediate diarrhea Verified 12/03/23 11:05 clavulanic acid AdvReac Intermediate diarrhea Verified 12/03/23 11:05 [From Augmentin] Sulfa (Sulfonamide AdvReac Mild PRURITIS Verified 12/03/23 11:05 Antibiotics) Home Medications Medication Instructions Recorded Confirmed Type calcium carbonate 600 mg-vitamin 1 ea PO DAILY 10/10/12 12/03/23 History D3 5 mcg (200 unit) tablet multivitamin (Multi-Day tablet) 1 ea PO DAILY 10/10/12 12/03/23 History Vitamin B Complex 1 ea PO DAILY 04/26/13 12/03/23 History Cane u ##1 09/29/17 02/15/19 Clinic ascorbic acid (vitamin C) 1,000 mg 1,000 mg PO PRN PRN 07/23/19 12/03/23 History tablet (Vitamin C) pantoprazole 40 mg tablet,delayed 40 mg PO DAILY #90 tabs 04/04/23 12/03/23 Rx release paroxetine HCl 40 mg tablet 40 mg PO DAILY #90 tabs 04/04/23 12/03/23 Rx fluticasone propionate 50 1 spray intranasal BID 90 days #3 04/10/23 12/03/23 Rx mcg/actuation nasal ea spray,suspension trazodone 50 mg tablet 50 - 100 mg (1 - 2 x 50 mg) PO QHS 05/05/23 12/03/23 Rx PRN sleep #180 tabs atorvastatin 40 mg tablet 40 mg PO DAILY #90 tabs 08/05/23 12/03/23 Rx acetaminophen 500 mg tablet 1,000 mg (2 x 500 mg) PO TID #90 12/03/23 Rx tabs ibuprofen 600 mg tablet 600 mg PO TID PRN #90 tabs 12/03/23 Rx oxycodone 5 mg tablet 5 mg PO Q8H PRN pain #10 tabs 12/03/23 Rx Exam Const General: cooperative, healthy appearing and no acute distress Orientation: alert, awake and oriented x3 HENMT Head: normocephalic and atraumatic General nose exam: no nasal discharge Eyes Conjunctivae: conjunctivae normal Sclera: sclerae normal Resp Effort & Inspection: normal respiratory effort Auscultation: clear to auscultation bilaterally and no wheezes Cardio Rate: regular rate Rhythm: regular rhythm Heart Sounds: S1 normal, S2 normal and no murmurs Documented by User: Frandy Trevino MD 12/03/23 13:20 Assessment and Plan Assessment and plan (1) Fracture of right distal radius: Status: Acute Assessment and plan: ORIF right distal radius. Details of surgery were discussed with patient as well pertinent anatomy and risks including but not limited to risk of infection, blood clot, damage to soft tissue/blood vessels/nerves, bleeding and fracture in detail. All questions were answered. I interviewed and examined the patient with Neal Middleton PA-C. I agree with the documentation as above. The assessment and plan were formulated with my direct involvement. Laura is an active 73-year-old [id number] female who fell suffering an intra-articular distal radius fracture. Given the significant displacement and intra-articular involvement, hand dominance and active lifestyle, I recommended operative fixation. I discussed the technical details of this case. I reviewed the risk to include bleeding, infection, pain, stiffness, malunion, nonunion, hardware prominence, hardware failure, need for repeat procedures. Damage nerves and vessels, damage to muscle and tendons. Despite these risk, she elects to proceed. 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) Right PIP joint injection ~20 mg Depo Medrol: 04/28/23 JESSICA (obstructive sleep apnea) (Chronic) No CPAP Major depressive disorder, recurrent (Chronic) Generalized anxiety disorder (Chronic) Osteoporosis (Chronic) Hyperlipidemia (Chronic) GERD (gastroesophageal reflux disease) (Chronic) Dysphagia (Chronic) Bilateral ovarian cysts (Chronic) Osteoarthritis of hands, bilateral (Chronic) Insomnia (Chronic) Chronic right-sided low back pain without sciatica (Chronic) Sigmoid diverticulosis (Chronic) Allergic rhinitis (Chronic) Medical History Right leg DVT (~2017) CVA (cerebral vascular accident) (~2014) Surgical History S/P medial meniscus repair of left knee (07/13/19) History of colonoscopy (~03/2021) History of esophagogastroduodenoscopy (EGD) (~03/2021) History of total right knee 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 Sister No problems noted. Sister Alcohol use disorder Sister No problems noted. Brother Myocardial infarction Heart disease Brother No problems noted. Brother Alcohol use disorder Leukemia Son Congenital heart defect Son Hypertension Maternal Grandfather , 40s Heart disease Maternal Grandmother , 40s Heart disease Paternal Grandfather , 89 Alcohol use disorder Paternal Grandmother , from eclampsia No problems noted. Social History Smoking/Tobacco Use Status: Never Smoking risk assessment performed?: Yes Alcohol Intake: never Drug use: Never Substance use type: does not use Counseling given: No Caregiver/Support person: No Household members: spouse Housing: house Do you need help understanding health information?: Rarely Pets and animals: No Sexually active: No Do you think of yourself as: straight/heterosexual Current gender identity: female What is your relationship status?: How often do you talk on the phone with friends or family?: three or more times per week How often do you attend gnosticism or gnosticist services?: 1-3 times per year Do you belong to any clubs or organized social groups?: no Panel score (0-1 are the most socially isolated patients): 2 Frequency: 1-2 times per week Crystal/Rastafari: Hindu Seatbelt use: always Drive intox or ride w/intox nascar driver: No Do you feel safe at home: Yes Do you feel safe in your relationship?: Yes Meds Allergies and Home Medications Allergies Allergy/AdvReac Type Severity Reaction Status Date / Time amoxicillin trihydrate AdvReac Severe DIARRHEA Verified 12/03/23 11:05 [From Augmentin] morphine AdvReac Severe HEART Verified 12/03/23 11:05 PALPITATIONS amoxicillin [From Augmentin] AdvReac Intermediate diarrhea Verified 12/03/23 11:05 clavulanic acid AdvReac Intermediate diarrhea Verified 12/03/23 11:05 [From Augmentin] Sulfa (Sulfonamide AdvReac Mild PRURITIS Verified 12/03/23 11:05 Antibiotics) Home Medications Medication Instructions Recorded Confirmed Type calcium carbonate 600 mg-vitamin 1 ea PO DAILY 10/10/12 12/03/23 History D3 5 mcg (200 unit) tablet multivitamin (Multi-Day tablet) 1 ea PO DAILY 10/10/12 12/03/23 History Vitamin B Complex 1 ea PO DAILY 04/26/13 12/03/23 History Cane u ##1 09/29/17 02/15/19 Clinic ascorbic acid (vitamin C) 1,000 mg 1,000 mg PO PRN PRN 07/23/19 12/03/23 History tablet (Vitamin C) pantoprazole 40 mg tablet,delayed 40 mg PO DAILY #90 tabs 04/04/23 12/03/23 Rx release paroxetine HCl 40 mg tablet 40 mg PO DAILY #90 tabs 04/04/23 12/03/23 Rx fluticasone propionate 50 1 spray intranasal BID 90 days #3 04/10/23 12/03/23 Rx mcg/actuation nasal ea spray,suspension trazodone 50 mg tablet 50 - 100 mg (1 - 2 x 50 mg) PO QHS 05/05/23 12/03/23 Rx PRN sleep #180 tabs atorvastatin 40 mg tablet 40 mg PO DAILY #90 tabs 08/05/23 12/03/23 Rx acetaminophen 500 mg tablet 1,000 mg (2 x 500 mg) PO TID #90 12/03/23 Rx tabs ibuprofen 600 mg tablet 600 mg PO TID PRN #90 tabs 12/03/23 Rx oxycodone 5 mg tablet 5 mg PO Q8H PRN pain #10 tabs 12/03/23 Rx
[2023-12-03] MEDS: Lactated Ringers 1,000 ML 80 ML IV (11:12)
--- NOTE | 2023-12-03 11:15 | DI.RAD_ITS ---
Exam(s) XR WRIST RT LIMITED EXAM: XR WRIST RT LIMITED CLINICAL HISTORY: RIGHT DISTAL RADIUS FRACTURE TECHNIQUE: 2D and realtime digital imaging was performed. CONTRAST MATERIAL: Refer to procedure report. COMPARISON: CR XR Wrist Complete 3+ Views Right from 11/30/2023 FINDINGS: Fluoroscopy was provided for Dr. Trevino during the performance of a reduction and internal fixatio n of the distal right radial fracture. Please refer to the procedure report for complete details. Ka,r=0.93 mGy IMPRESSION: RADIATION DOSE DELIVERED: 0.0 0.0 0
[2023-12-03] MEDS: Celecoxib 200 MG CAP 400 MG PO (11:16)
[2023-12-03] MEDS: Acetaminophen 500 MG TAB 1000 MG PO (11:17)
--- NOTE | 2023-12-03 11:19 | ANES.PREOP_ITS ---
General Info Date of Service Date Performed: 12/03/23 Height: 5 ft 2 in Weight: 71.2 kg Body Mass Index (BMI): 28.7 Surgical Procedure: Operation Date: 12/03/23 14:10 Proposed Procedure Side Surgeon p Wrist ORIF Distal Radius Right Frandy Trevino MD Meds Allergies and Home Medications Allergies Allergy/AdvReac Type Severity Reaction Status Date / Time amoxicillin trihydrate AdvReac Severe DIARRHEA Verified 12/03/23 11:05 [From Augmentin] morphine AdvReac Severe HEART Verified 12/03/23 11:05 PALPITATIONS amoxicillin [From Augmentin] AdvReac Intermediate diarrhea Verified 12/03/23 11:05 clavulanic acid AdvReac Intermediate diarrhea Verified 12/03/23 11:05 [From Augmentin] Sulfa (Sulfonamide AdvReac Mild PRURITIS Verified 12/03/23 11:05 Antibiotics) Home Medication Medication Instructions Recorded calcium carbonate 600 mg-vitamin 1 ea PO DAILY 10/10/12 D3 5 mcg (200 unit) tablet multivitamin (Multi-Day tablet) 1 ea PO DAILY 10/10/12 Vitamin B Complex 1 ea PO DAILY 04/26/13 ascorbic acid (vitamin C) 1,000 mg 1,000 mg PO PRN PRN 07/23/19 tablet (Vitamin C) pantoprazole 40 mg tablet,delayed 40 mg PO DAILY #90 tabs 04/04/23 release paroxetine HCl 40 mg tablet 40 mg PO DAILY #90 tabs 04/04/23 fluticasone propionate 50 1 spray intranasal BID 90 days #3 04/10/23 mcg/actuation nasal ea spray,suspension trazodone 50 mg tablet 50 - 100 mg (1 - 2 x 50 mg) PO QHS 05/05/23 PRN sleep #180 tabs atorvastatin 40 mg tablet 40 mg PO DAILY #90 tabs 08/05/23 acetaminophen 500 mg tablet 1,000 mg (2 x 500 mg) PO TID #90 12/03/23 tabs ibuprofen 600 mg tablet 600 mg PO TID PRN #90 tabs 12/03/23 oxycodone 5 mg tablet 5 mg PO Q8H PRN pain #10 tabs 12/03/23 Current Visit Medications: Current Medications Generic Name Dose Route Start Last Admin Trade Name Freq PRN Reason Stop Dose Admin Acetaminophen 1,000 mg 12/03/23 06:00 Acetaminophen 500 Mg Tab PO 12/03/23 23:59 PREOP AHSAN Acetaminophen 650 mg 12/03/23 09:59 Acetaminophen 325 Mg Tab PO 01/02/24 09:58 Q4H PRN PRN Celecoxib 400 mg 12/03/23 06:00 Celecoxib 200 Mg Cap PO 12/03/23 23:59 PREOP [facility] Droperidol 0.625 mg 12/03/23 09:12 Droperidol 5 Mg/2 Ml Vial IVP 01/02/24 09:11 DIRECTED PRN Nausea Ephedrine Sulfate 0 mg 12/03/23 09:12 Ephedrine 25 Mg/5 Ml Syringe IVP 01/02/24 09:11 DIRECTED PRN Fentanyl 0 mcg 12/03/23 09:12 Fentanyl 100 Mcg/2 Ml Vial IVP 01/02/24 09:11 DIRECTED PRN Hydromorphone HCl 0 mg 12/03/23 09:12 Hydromorphone 2 Mg/Ml Syr IVP 01/02/24 09:11 DIRECTED PRN Ringer's Solution 1,000 mls @ 80 mls/hr 12/03/23 06:00 IV 12/03/23 23:59 INFUSION AHSAN Cefazolin Sodium/Dextrose 2 gm in 50 mls @ 100 mls/hr 12/03/23 06:00 Ancef Duplex IVPB 12/03/23 23:59 PREOP [facility] Tranexamic Acid/Sodium Chloride 1,000 mg in 100 mls @ 600 mls/hr 12/03/23 06:00 IVPB 12/03/23 23:59 PREOP [facility] IV Miscellaneous Supplies 1 each 12/03/23 06:00 Iv Access IV 12/03/23 23:59 DIRECTED HASAN Naloxone HCl 0 mg 12/03/23 09:12 Naloxone 0.4 Mg/Ml Vial IVP 01/02/24 09:11 PRN PRN Oxycodone HCl 5 mg 12/03/23 09:59 Oxycodone 5 Mg Tab PO 01/02/24 09:58 Q3H PRN PRN Pain Sodium Chloride 0 ml 12/03/23 06:00 Normal Saline Flush 10 Ml Syr IV 12/03/23 23:59 PRN PRN Sodium Chloride 0 ml 12/03/23 06:00 Normal Saline 10 Ml Vial IJ 12/03/23 23:59 DIRECTED PRN Sterile Water 0 ml 12/03/23 06:00 Water,Injection,Sterile 10 Ml Vial IJ 12/03/23 23:59 DIRECTED PRN PFSH Active Problems Active Problems: Problem Status Onset Code Fracture of right distal radius 11/30/23 S52.501A Corns and callosities L84 Nail dystrophy L60.3 Cramping of feet R25.2 Arthritis of finger of right hand M19.041 JESSICA (obstructive sleep apnea) G47.33 Major depressive disorder, recurrent F33.9 Generalized anxiety disorder F41.1 Osteoporosis M81.0 Hyperlipidemia E78.5 GERD (gastroesophageal reflux disease) K21.9 Dysphagia R13.10 Bilateral ovarian cysts N83.201, N83.202 Osteoarthritis of hands, bilateral M19.041, M19.042 Insomnia G47.00 Chronic right-sided low back pain without sciatica M54.50, G89.29 Sigmoid diverticulosis K57.30 Allergic rhinitis J30.9 Medical History Medical History Right leg DVT (~2017) CVA (cerebral vascular accident) (~2014) Surgical History Surgical History S/P medial meniscus repair of left knee (07/13/19) History of colonoscopy (~03/2021) History of esophagogastroduodenoscopy (EGD) (~03/2021) History of total right knee replacement (TKR) (07/08/17) History of total left knee replacement (03/27/21) Status post foot surgery Status post repair of paraesophageal diaphragmatic hernia Status post vaginal hysterectomy History of appendectomy (~2009) Tobacco Smoking/Tobacco Use Status: Never Passive smoking exposure: No Alcohol Alcohol Intake: never Substance Use Substance use: Never Substance use type: does not use Vital Signs and Lab Results Vital Signs Most Recent Vital Signs in EMR: Most Recent Vital Signs Temp Pulse Resp BP Pulse Ox 36.5 C 78 18 133/68 95 12/03/23 11:06 12/03/23 11:06 12/03/23 11:06 12/03/23 11:06 12/03/23 11:06 Lab Results Blood Type / Crossmatch: No Data to Display Complete Blood Count: No Data to Display Complete Metabolic Panel: No Data to Display Liver Function Panel: No Data to Display Coagulation Panel: No Data to Display Cardiac Panel: No Data to Display Arterial Blood Gas: No Data to Display Venous Blood Gas: No Data to Display Pancreas Panel: No Data to Display Thyroid Panel: No Data to Display Infectious Disease: No Data to Display Blood Cultures: No Data to Display Toxicology Panel: No Data to Display Imaging and Studies Imaging and Studies Study information below may be from another EMR and interpreted by another provider. Please see original notes in EMR for more complete details. Echocardiogram Summary: FINDINGS: Technically limited study. Poor endocardial definition. LEFT VENTRICLE/LVEF: LVEF estimated at approximately 60%. Normal size. RIGHT VENTRICLE: Not well visualized. AORTIC VALVE: Trileaflet, no aortic stenosis or insufficiency. MITRAL VALVE: No mitral stenosis or insufficiency. TRICUSPID VALVE: No tricuspid insufficiency. RSV/PA/RIGHT ATRIAL PRESSURE: Right atrial pressure estimated at < 100 mmHg. PULMONIC VALVE: No pulmonic stenosis or insufficiency. ATRIA: Left atrium, right atrium within normal limits. DIASTOLIC INDICES: E/A ratio < 1. Deceleration time 322 milliseconds. E-prime velocity 8 cm/second. E/E-prime ratio < 15. IVRT < 100 milliseconds. GREAT VESSELS: The inferior vena cava is normal in size and collapses with inspiration. PERICARDIUM: No effusion. RHYTHM: Sinus. Carotid Artery Summary:: IMPRESSION: No evidence of hemodynamically significant cervical carotid artery stenosis. Please refer to the cerebro vascular evaluation worksheet for complete details. Anesthesia Assessment and Plan Anesthesia History Personal History: No History of Anesthesia Complications Family History: No Family History of Anesthesia Complications Exercise Tolerance Exercise Tolerance: Metabolic Equivalents>4 Cardiac & Pulmonary Exam Cardiac Exam: Normal S1/S2 Heart Sounds Pulmonary Exam: Clear Bilateral Breath Sounds Implantable Cardiac Device Does patient have a Pacemaker or an ICD?: No Airway Exam Known Difficult Airway: No Mallampati Class: 2 Mouth Opening: Normal (> 3cm) Thyromental Distance: Greater than 3 cm Neck Range of Motion: Full ROM Neck Circumference: Normal Teeth Condition: Removable Dentures/Plates Upper and Removable Dentures/Plates Lower ASA Classification ASA Score: ASA 2 Emergency Case?: No NPO Status NPO Status: NPO Clears >2 hours, Solids >8 hours Anesthesia Plan Resuscitation Status: Full Code Anesthesia Technique: General Anesthesia Airway Planned: LMA Pain Management: Surgeon and patient request nerve block Monitors Used: Standard Monitors
--- NOTE | 2023-12-03 11:43 | W.ANESNERVE ---
Nerve Block Single Injection Procedure Date and Time Date Performed: 12/03/23 Procedure Start: : Location Where Procedure Performed Procedure Location: Day Surgery Unit Reason Performed: Postoperative Analgesia Requesting Provider: Frandy Trevino Timeout Performed Timeout Performed: Yes Monitoring Used ECG, Blood Pressure, SpO2 and ETCO2 Sterility Sterility: Hand Hygiene, Surgical Cap, Surgical Mask, Sterile Gloves, Sterile Drape/Sheet, Eye Protection and Chlorhexidine Sedation Given During Procedure Sedation Given (Indicate Dose Given): Versed IV Dose:: 2mg IVP Patient Mental Status Patient Mental Status: Sedate with meaningful communication Nerve Block 1st Nerve Block: Laterality: Right Block Type: Supraclavicular Ultrasound Image Saved?: Yes Needle / Catheter Used: 100mm SonoPlex II Local Anesthetic Bolus (Indicate Dose Given): Lidocaine used for local infiltration of skin, Injected in 3-5ml increments after negative blood aspiration and Bupivacaine 0.5% Dose:: 20cc/0.5% (100mg) Additives (Indicate Dose Given): Epinephrine to make 1:200,000 (5mcg/ml) Dose:: 100mcg and Decadron Dose:: 10mg PF Ultrasound: Sterile probe cover and gel used Nerve Stimulator: Not Used Paresthesia: None Procedure Tolerated: No Complications and Patient tolerated well Procedure Outcome: Successful Performed By: Diogo Damon
[2023-12-03] MEDS: TRANEXAMIC ACID/SOD. CHL. 1,000 MG/100 ML BAG 600 MG IVPB (12:01)
[2023-12-03] MEDS: ceFAZolin 2 GM/50 ML BAG IVPB (12:11)
[2023-12-03] MEDS: Bupivacaine 0.5% Pres-Free W/EPI 30 ML VIAL (12:58)
--- NOTE | 2023-12-03 13:14 | ROE_ITS ---
Date of service: 12/03/23 Time of Service: 12:15 Operative Note Operative Note DATE OF PROCEDURE: 12/03/23 PRE-OP DIAGNOSIS: Right Distal Radius Fracture POST-OP DIAGNOSIS: same PROCEDURE: Open Reduction and Internal Fixation of Right Distal Radius SURGEON: Frandy Trevino [employer]MENT SUPERVISOR: Neal Middleton ANESTHESIA TYPE: General LMA/ETT and Primary Nerve Block Refer to Anesthesia Record ESTIMATED BLOOD LOSS: 20 PATHOLOGY: none sent COMPLICATIONS: None Patient was transported to: PACU Patient's condition: stable Indications: Laura is a 73 year old female who I have seen for a distal radius fracture. Given the deformity, displacement, fracture pattern, and effect on daily function, I recommended surgical fixation. I reviewed the risk of the procedure to include bleeding, infection, stiffness, damage to nerves and vessels, damage to muscles and tendons, malunion, nonunion, hardware prominence, tendon rupture, need for repeat procedures. Despite these risks, the patient elected to proceed. Findings: There is a distal radius fracture which was intra-articular with 2 epiphyseal fragments. It was reduced and fixed with a Synthes volar locking plate. Procedure Description: Laura was greeted in the preoperative holding area. The correct patient and site was confirmed and marked. The history and physical was updated. The consent was reviewed the patient and signed. A supraclavicular nerve block was performed. The patient was taken to the operating room and placed in the supine position. All bony problems were well-padded. The right arm was placed onto a radiolucent hand table. A nonsterile tourniquet was placed high up on the arm. Prophylactic antibiotics in the form of cefazolin were administered. The left arm was prepped with ChloraPrep and draped in a standard fashion. A timeout was performed for safe surgery. A standard longitudinal incision was made overlying the flexor carpi radialis tendon starting at the distal wrist crease and moving proximally. The skin was incised sharply. The flexor carpi radialis tendon and its sheath is identified. The sheath was opened. The tendon was moved ulnarly in the floor of the sheath was incised. Blunt dissection the flexor pollicis longus muscle belly and tendon were also made radially exposing the pronator quadratus and the distal radius. The printer quadratus was elevated with an ulnar-based flap. This exposed the volar distal radius and the fracture. A de la fuente elevator was used for full exposure of the volar surface of the distal radius. The primary fracture line was exposed. Using a series of elevators, curettes, and knife, the fracture was fully debrided of any fibrous tissue and callus formation. I used a freer elevator to help mobilize the fragments. There was a high transverse fracture of the volar distal radius with 2 primary epiphyseal fragments. I then performed a closed reduction. Using gentle traction and fracture manipulation, this reduction was held. Fluoroscopic images were used to confirm adequate reduction. A K wire was placed from the radial styloid into the radius, across the fracture line. Reduction was confirmed with K wire in place. An appropriately sized Synthes volar locking plate was then placed onto the bony surface of the distal radius. This was then held there with a distal radius clamp sandwiching the plate to the distal segment. A reduction K wire was placed into the slotted hole on the shaft but not tightened all the way to allow for manipulation of the distal segment onto the proximal shaft. A single nonlocking screw was placed in the distal row of the distal radius plate, securing the plate against the bone of the distal radial metaphysis. Once again, the plate was evaluated to make sure it was aligned appropriately. The single screw was also checked to make sure it was in appropriate positioning for trajectory of future screws. The remainder of the screws within the volar locking plate were filled with locking screws. These were made sure not to penetrate the dorsal cortex. The 2 radial screws were angled as far radial and distal as possible to capture the small radial styloid fragment. Fluoroscopy was then used against confirm appropriate positioning. Nonlocking screws were placed within the 3 shaft screw holes. Final x-rays were obtained which demonstrated adequate reduction and positioning of hardware. The dorsal sunrise view was also obtained to ensure correct sizing of screws. The wound was then thoroughly irrigated. The pronator quadratus was unable to be reapproximated. The deep dermal layer was closed with a 2-0 Vicryl. The skin was closed with 4-0 nylon. The wound was dressed with Xeroform, 4 x 4's, web roll. A short arm splint was applied. At the end the case all counts are correct. Patient was transferred back to the PACU in stable condition.
--- NOTE | 2023-12-03 13:40 | W.ANESPOSTOP ---
Postoperative Evaluation Date, Time and Location Date Performed: 12/03/23 Time Performed: 13:40 Patient Location: PACU Vital Signs Most Recent Imported Vital Signs: Most Recent Vital Signs Temp Pulse Resp BP Pulse Ox 36.2 C L 88 12 127/64 91 L 12/03/23 13:17 12/03/23 13:17 12/03/23 13:17 12/03/23 13:17 12/03/23 13:17 Pain Score Most Recent Pain Score: Most Recent Pain Score Pain Level 0 12/03/23 13:17 Assessment Mental Status: Arousable with meaningful communication Airway and Respiratory Function: Patent airway with normal (patient baseline) respiratory exam Cardiovascular Function: Hemodynamically Stable Hydration Status: Adequately Hydrated Nausea & Vomiting: No Nausea or Vomiting Pain: Pt. Denies Any Pain Peripheral Nerve Block: Regional nerve block not resolved at time of post operative discharge
== END 2023-12-03 15:20 | disposition home or self-care (01) ==
LOC: SUR 10:34
PROVIDERS: PCP Family Medicine; Visit Provider Student in an Organized Health Care Education/Training Program
PROC: (CPT 25608; principal; 2023-12-03 14:00)
DX: S52.571A Other intraarticular fracture of lower end of right radius, initial encounter for closed fracture (principal); X58.XXXA Exposure to other specified factors, initial encounter; E78.5 Hyperlipidemia, unspecified; M81.0 Age-related osteoporosis without current pathological fracture; G47.33 Obstructive sleep apnea (adult) (pediatric)
CPT/HCPCS: 25608; C1889; 76000; 76942; 73100; J0171; J0665; J0690; J1100; J1805; J2001; J2250; J2405; J2704

== ENCOUNTER 2023-12-15 16:02 | Outpatient (CLI) | payer OTHER, SELFPAY ==
--- NOTE | 2023-12-15 14:13 | DI.RAD_ITS ---
Exam(s) XR WRIST RT LIMITED EXAM: XR WRIST RT LIMITED CLINICAL HISTORY: S/P ORIF R DISTAL RAD. TECHNIQUE: 2D digital imaging was performed of the right wrist. Two views were obtained. PA and la teral views were obtained. COMPARISON: CR XR WRIST RT LIMITED from 12/03/2023 FINDINGS: BONES: There is no change in alignment of the distal right radial fracture or the sideplate and screw s transfixing the fracture. No bony destructive lesion is seen. JOINTS: The carpal bones are normally aligned. SOFT TISSUE: Normal. IMPRESSION: Stable alignment of the distal radial fracture and orthopedic hardware. DATA REPOSITORY: RADIATION DOSE DELIVERED:
== END 2023-12-15 16:03 | disposition home or self-care (01) ==
LOC: DIORS 16:02
PROVIDERS: PCP Family Medicine; Referring Provider Family Medicine
DX: S52.501D Unspecified fracture of the lower end of right radius, subsequent encounter for closed fracture with routine healing (principal); X58.XXXD Exposure to other specified factors, subsequent encounter
CPT/HCPCS: 73100

== ENCOUNTER → 2024-01-05 02:26 | Outpatient (CLI) | payer OTHER, SELFPAY | PROVIDERS: PCP Family Medicine; Visit Provider Obstetrics & Gynecology | DX: Z12.39 Encounter for other screening for malignant neoplasm of breast (principal) | CPT/HCPCS: 77063; 77067 ==

== ENCOUNTER → 2024-01-05 02:26 | Outpatient (CLI) | payer OTHER, SELFPAY ==
--- NOTE | 2024-01-05 06:45 | DI.DEXA_ITS ---
Exam(s) XR DEXA BONE DENSITY W/WO JUAN EXAM: XR DEXA BONE DENSITY W/WO JUAN CLINICAL HISTORY: screening for osteoporosis in postmenopausal woman,z78.0 TECHNIQUE: COMPARISON: CR XR DEXA BONE DENSITY W/WO JUAN from 06/08/2021 FINDINGS: Lateral Spine Image: Unremarkable. No compression deformities identified. Left hip: Total T-Score: -1.7. This compares to -2.6 on the prior examination. Total Z-Score: 0.1 T- and Z-scores: Findings are consistent with osteopenia. There is osteoporosis in the femoral neck with a T-score of -2.5. Lumbar Spine: Total T-Score: -2.9. This compares to -3.2 on the prior examination. Total Z-Score: -0.5 T- and Z-scores: Findings are consistent with osteoporosis. There is osteoporosis seen in the proximal left forearm with a T-score of -2.8 and a Z-score of -0.2. IMPRESSION: Osteoporosis seen in the left hip, lumbar spine and left forearm.
== END ==
PROVIDERS: PCP Family Medicine; Visit Provider Nurse Practitioner Family
DX: Z78.0 Asymptomatic menopausal state (principal)
CPT/HCPCS: 77080

== ENCOUNTER 2024-01-12 15:11 | Outpatient (CLI) | payer OTHER, SELFPAY ==
--- NOTE | 2024-01-12 14:00 | DI.RAD_ITS ---
Exam(s) XR WRIST RT LIMITED EXAM: XR WRIST RT LIMITED CLINICAL HISTORY: S/P ORIF R RAD. TECHNIQUE: 2D digital imaging was performed. Two images were obtained. PA and lateral views were ob tained. COMPARISON: CR XR WRIST RT LIMITED from 12/15/2023 FINDINGS: BONES: There are stable post operative changes present. Sideplate and screws are seen transfixing th e distal radial fracture. No change in the orthopedic hardware fracture components is seen. The fra cture line is still visualized. No new fracture is identified. No new fracture or dislocation. JOINTS: The joint spaces are well maintained. SOFT TISSUE: Normal. IMPRESSION: Stable postoperative changes. DATA REPOSITORY: RADIATION DOSE DELIVERED:
== END 2024-01-12 15:12 | disposition home or self-care (01) ==
LOC: DIORS 15:11
PROVIDERS: PCP Family Medicine; Referring Provider Family Medicine; Visit Provider Student in an Organized Health Care Education/Training Program
DX: S52.501D Unspecified fracture of the lower end of right radius, subsequent encounter for closed fracture with routine healing (principal); X58.XXXD Exposure to other specified factors, subsequent encounter
CPT/HCPCS: 73100

== ENCOUNTER → 2024-01-13 01:20 | Outpatient (CLI) | payer OTHER, SELFPAY ==
--- NOTE | 2024-01-13 06:30 | DI.US_ITS ---
Exam(s) US PELVIS TRANSVAGINAL EXAM: US PELVIS TRANSVAGINAL CLINICAL HISTORY: re-check B/L ovarian cysts,n83.201,n83.202 TECHNIQUE: Transabdominal and transvaginal imaging was performed using standard protocol. COMPARISON: US US PELVIS TRANSVAGINAL from 05/04/2020 US US PELVIS TRANSVAGINAL from 07/17/2021 FINDINGS: UTERUS: Status post hysterectomy. OVARIES: Right: Cyst or mass: Non 2 adjacent cysts, measuring 2.1 x 2.1 x 1.7 and 1.7 x 1.4 by 1.3 cm. They h ave increased mildly in size from previous exams Left: Cyst or mass: Cyst measuring 2.3 x 2 x 1 x 2.4 cm. Stable from prior exams. DOPPLER: Color: Symmetric and uniform flow to both ovaries. No hyperemia. CUL-DE-SAC: Free fluid: None. IMPRESSION: Stable size of left ovarian cyst. Mild increase in size of 2 adjacent right ovarian cysts. DATA REPOSITORY:
== END ==
PROVIDERS: PCP Family Medicine; Visit Provider Obstetrics & Gynecology
DX: N83.291 Other ovarian cyst, right side; N83.292 Other ovarian cyst, left side
CPT/HCPCS: 76830; 76856

== ENCOUNTER 2024-02-23 15:48 | Outpatient (CLI) | payer OTHER, SELFPAY ==
--- NOTE | 2024-02-23 14:00 | DI.RAD_ITS ---
Exam(s) XR WRIST RT LIMITED EXAM: XR WRIST RT LIMITED CLINICAL HISTORY: S/P ORIF R DISTAL RAD FX. TECHNIQUE: 2D digital imaging was performed. Two images were obtained. PA and lateral views were ob tained. COMPARISON: CR XR WRIST RT LIMITED from 01/12/2024 FINDINGS: BONES: There are stable post operative changes of internal fixation of the distal right radial fractu re present. No new fracture or dislocation. The fracture line is still visualized. JOINTS: The joint spaces are well maintained. SOFT TISSUE: Normal. IMPRESSION: Stable postoperative changes. DATA REPOSITORY: RADIATION DOSE DELIVERED:
== END 2024-02-23 15:49 | disposition home or self-care (01) ==
LOC: DIORS 15:48
PROVIDERS: PCP Family Medicine; Visit Provider Student in an Organized Health Care Education/Training Program
DX: S52.501D Unspecified fracture of the lower end of right radius, subsequent encounter for closed fracture with routine healing (principal); X58.XXXD Exposure to other specified factors, subsequent encounter
CPT/HCPCS: 73100

== ENCOUNTER 2024-04-01 09:14 | Outpatient (CLI) | payer OTHER, SELFPAY ==
[2024-04-01 12:49] LABS: Hemoglobin A1C 5.6 % (<5.7)
[2024-04-01 13:10] LABS: Vitamin B12 462 pg/mL (193-986)
== END 2024-04-01 09:15 | disposition home or self-care (01) ==
PROVIDERS: PCP Family Medicine; Visit Provider Family Medicine
DX: E11.51 Type 2 diabetes mellitus with diabetic peripheral angiopathy without gangrene (principal); I70.209 Unspecified atherosclerosis of native arteries of extremities, unspecified extremity; E83.42 Hypomagnesemia; D64.9 Anemia, unspecified; D12.6 Benign neoplasm of colon, unspecified; Z23 Encounter for immunization
CPT/HCPCS: 36415; 82607; 83036; 83735

== ENCOUNTER 2024-11-08 15:36 | Outpatient (CLI) | payer MEDICARE, SELFPAY ==
--- NOTE | 2024-11-08 14:30 | DI.RAD_ITS ---
Exam(s) XR KNEE RT 3V AP,LAT,STEPH EXAM: XR KNEE RT 3V AP,LAT,STEPH CLINICAL HISTORY: right TKA. TECHNIQUE: 2D digital imaging was performed. Three views. COMPARISON: CR XR knee RT 2V AP,lat from 07/22/2018 FINDINGS: BONES: No acute fracture is present. No bony destructive lesion is seen. JOINTS: Stable alignment of total knee prosthesis.. No joint effusion is seen. SOFT TISSUE: Normal. IMPRESSION: No acute abnormality. Stable appearance of right total knee prosthesis. DATA REPOSITORY: RADIATION DOSE DELIVERED:
== END 2024-11-08 15:37 | disposition home or self-care (01) ==
LOC: DIORS 15:36
PROVIDERS: PCP Family Medicine; Referring Provider Family Medicine; Visit Provider Physician Assistant
DX: Z96.651 Presence of right artificial knee joint (principal)
CPT/HCPCS: 73562; 99213

== ENCOUNTER → 2024-11-11 10:57 | Outpatient (BNVA) | payer MEDICARE, SELFPAY | PROVIDERS: PCP Family Medicine; Referring Provider Family Medicine; Visit Provider Physical Therapy Assistant | DX: Z12.11 Encounter for screening for malignant neoplasm of colon (principal); Z86.0101 Personal history of adenomatous and serrated colon polyps ==

== ENCOUNTER 2024-11-22 09:51 | Day surgery (SDC) | payer MEDICARE, SELFPAY ==
--- NOTE | 2024-11-21 15:37 | PDOC.DSDIS_ITS ---
Date of service: 11/22/24 Discharge Plan Disposition Patient Disposition: Home Condition: Good Discharge Details Reason For Visit: screening colonoscopy Attending Provider: Julius Gant Primary Care Provider: Jose Ramos Home Meds and New Rx's Prescriptions: Continued paroxetine HCl 40 mg tablet 40 mg PO DAILY Qty: 90 3RF atorvastatin 40 mg tablet 40 mg PO DAILY Qty: 90 3RF multivitamin [Multi-Day] 1 EACH tablet 1 ea PO DAILY calcium carbonate-vitamin D3 1 EACH tablet 1 ea PO DAILY VITAMIN B COMPLEX 1 EACH tablet 1 ea PO DAILY Cane Qty: 1 0RF Rx Instructions: Please use cane for ambulation support and gait training due to weakness following total knee replacement. pantoprazole 40 mg tablet,delayed release (DR/EC) 40 mg PO DAILY Qty: 90 3RF trazodone 50 mg tablet 50 - 100 mg PO QHS PRN (Reason: sleep) Qty: 180 3RF zoledronic [id number] [Reclast] 5 mg/100 mL piggyback See Rx Instructions IV ONCE Rx Instructions: 100 ml intravenously once; administer over at least 15 mins ascorbic acid (vitamin C) [Vitamin C] 1,000 mg Tablet 1,000 mg PO PRN PRN acetaminophen 500 mg tablet 1,000 mg PO TID Qty: 90 3RF Discharge Instructions Instructions: Colon polyps, Diverticulosis Additional Instructions: Laura, was great meeting you today, and I hope you are comfortable during the procedure. Things went very smoothly. I did find, and removed a medium size polyp today. This will be sent off for testing., We use the information from the polyp analysis to guide timing of future colonoscopies. Those results usually take about a week or 2 to get back, once my office has that information will be in touch with other recommendations. Incidentally, you also have some diverticulosis. These are weak spots in the muscular layer of the colon all the cause the inside lining to pocket approach outwards a bit. Generally I recommen d the patient's maintain a diet that is rich in fiber, stay well-hydrated, and avoid symptoms of constipation. I will attach some information here about diverticulosis as well as colorectal polyps. If you have any questions at all, please do not hesitate to ask. 1. If tolerated, consume a soft, low fiber diet for 1-2 days. 2[address] Do not drive, drink alcohol, operate machinery, make critical decisions, or do activities that require coordination or balance for 24 hours. 3. Because air was put into your colon during the procedure, expelling air from your rectum (passing gas or farting) is normal. 4. You may not have a bowel movement for 1-3 days because of the colonoscopy prep. This is normal. 5. Go directly to the emergency room if you notice any of the following: Develop chills (warm to touch), or if you have a thermometer and your temperature is above 101 Difficulty breathing or difficultly swallowing Persistent vomiting Severe abdominal pain, other than gas cramps Severe chest pain Black, tarry stools Any bleeding ? exceeding one tablespoon 6. Call your physician if the site where your intravenous was started becomes red, swollen, painful, and warm to touch. 7. Your physician has reviewed your pre-procedure medications. Please continue to take those medications as previously ordered. You will be given specific information/education regarding any changes to your medications before leaving. Stand Alone Forms: Anesthesia Discharge Inst., Colonoscopy Post Instructions, Adilson Velásquez (DSU) Activity:: Activity as Tolerated Diet:: As Tolerated Discharge Orders Discharge Orders: Discharge Order (Routine); Ordered 11/21/24 Ordered By: Julius Gant DS: Diagnosis Discharge Diagnosis (1) Encounter for screening colonoscopy: Status: Acute Asessment and Plan: Follow-up on polypectomy results
--- NOTE | 2024-11-21 15:38 | COLE_ITS ---
Date of service: 11/22/24 Time of Service: 12:10 Colonoscopy Report Date of procedure: 11/22/24 Pre-op diagnosis general: screening colonoscopy Post-op diagnosis procedure note: other (Diverticulosis, colon polyp) Procedure: colonoscopy with polypectomy Surgeon: Julius Gant Anesthesia Type: General:No Airway Estimated blood loss (mL): 0 Pathology: other (0.5 cm flat polyp at 95 cm) Complications: None Disposition: same day Indications: Laura is a 74 year old woman with a history of adenomatous polyps who needs a screening colonoscopy Prep: Miralax/Dulcolax Procedure Start Time: 11:33 Procedure End Time: 11:52 Retraction Time: 12 Findings: Sigmoid diverticulosis, 0.5 cm flat polyp at 95 cm Procedure Description: After the induction of anesthesia, and with the patient in left lateral decubitus position, I began by performing an external anorectal exam.? Perineum and skin were normal, as was the anal verge.? There was no evidence of external hemorrhoids.? Next, I performed a digital rectal exam.? I did not appreciate any abnormal findings.? Next, I advanced a colonoscope into the rectal vault.? I performed retroflexion.? This appeared normal.? Using insufflation, I then advanced the colonoscope beyond the rectal folds and into the sigmoid colon before advancing towards the cecum.? The quality of the prep was excellent.? The scope was noted to be in the cecum by identification of the ileocecal valve and appendiceal orifice.? I then began withdrawing the colonoscope using repeated irrigation as necessary for full evaluation of the colonic mucosa. Around 95 cm from the anal verge was 0.5 cm flat polyp. This was removed with cold snare polypectomy with minimal bleeding. ?Once the scope was withdrawn to the level of the rectum, great care was taken to examine portions of the rectal folds.? Finally, the scope was withdrawn and the patient was brought to the same-day surgery recovery unit as the anesthetic wore off. ?The findings and instructions were shared with the patient prior to discharge. [place] Bowel Prep [place] Bowel Prep Right Colon: 3 Left Colon: 3 Transverse Colon: 3 Total Score: 9
[2024-11-22 10:10] VITALS: BP 109/77; PULSE 90; RESP 20; TEMP 36.6; O2SAT 93
[2024-11-22] MEDS: Lactated Ringers 1,000 ML 80 ML IV (10:19)
--- NOTE | 2024-11-22 10:45 | W.ANESPRE ---
General Info Date of Service Date Performed: 11/22/24 Height: 5 ft 2 in Weight: 71.668 kg Body Mass Index (BMI): 28.9 Surgical Procedure: Operation Date: 11/22/24 11:20 Proposed Procedure Side Surgeon p Ocatvio Gant MD Meds Allergies and Home Medications Allergies Allergy/AdvReac Type Severity Reaction Status Date / Time amoxicillin trihydrate (From AdvReac Severe DIARRHEA Verified 11/22/24 10:08 Augmentin) morphine AdvReac Severe HEART Verified 11/22/24 10:08 PALPITATIONS amoxicillin (From Augmentin) AdvReac Intermediate diarrhea Verified 11/22/24 10:08 clavulanic acid (From AdvReac Intermediate diarrhea Verified 11/22/24 10:08 Augmentin) Sulfa (Sulfonamide AdvReac Mild PRURITIS Verified 11/22/24 10:08 Antibiotics) Home Medication ?Medication ?Instructions ?Recorded calcium 600 mg (as 1 ea PO DAILY 10/10/12 carbonate)-vitamin D3 5 mcg (200 unit) tablet multivitamin (Multi-Day tablet) 1 ea PO DAILY 10/10/12 Vitamin B Complex 1 ea PO DAILY 04/26/13 ascorbic acid (vitamin C) 1,000 mg 1,000 mg PO PRN PRN 07/23/19 tablet (Vitamin C) acetaminophen 500 mg tablet 1,000 mg (2 x 500 mg) PO TID #90 12/03/23 tabs pantoprazole 40 mg tablet,delayed 40 mg PO DAILY #90 tabs 03/25/24 release atorvastatin 40 mg tablet 40 mg PO DAILY #90 tabs 04/01/24 paroxetine HCl 40 mg tablet 40 mg PO DAILY #90 tabs 04/01/24 trazodone 50 mg tablet 50 - 100 mg (1 - 2 x 50 mg) PO QHS 06/21/24 PRN sleep #180 tabs zoledronic acid 5 mg/100 mL in See Rx Instructions IV ONCE 11/12/24 mannitol 5 %-water intravenous piggybck (Reclast) Current Visit Medications: Current Medications Generic Name Dose Route Start Last Admin Trade Name Freq PRN Reason Stop Dose Admin Ringer's Solution 1,000 mls @ 80 mls/hr 11/22/24 06:00 11/22/24 10:19 IV 11/22/24 23:59 80 mls/hr INFUSION AHSAN Administration IV Miscellaneous Supplies 1 each 11/22/24 06:00 Iv Access IV 11/22/24 23:59 DIRECTED AHSAN Ondansetron HCl 4 mg 11/21/24 15:39 Ondansetron 4 Mg/2 Ml Vial IVP 12/21/24 15:38 Q4H PRN PRN Nausea / Vomiting Sodium Chloride 0 ml 11/22/24 06:00 Normal Saline Flush 10 Ml Syr IV 11/22/24 23:59 PRN PRN Sodium Chloride 0 ml 11/22/24 06:00 Normal Saline 10 Ml Vial IJ 11/22/24 23:59 DIRECTED PRN Sterile Water 0 ml 11/22/24 06:00 Water,Injection,Sterile 10 Ml Vial IJ 11/22/24 23:59 DIRECTED PRN PFSH Active Problems Active Problems: Problem Status Onset Code Encounter for screening colonoscopy Acute Z12.11 Right knee injury Acute ~08/16/24 S89.91XA Fracture of right distal radius Acute 11/30/23 S52.501A Corns and callosities Acute L84 Nail dystrophy Acute L60.3 Cramping of feet Acute R25.2 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 Generalized anxiety disorder Chronic F41.1 Major depressive disorder, recurrent Chronic F33.9 JESSICA (obstructive sleep apnea) Chronic G47.33 GERD (gastroesophageal reflux disease) Chronic K21.9 Bilateral ovarian cysts Chronic N83.201, N83.202 Sigmoid diverticulosis Chronic K57.30 Osteoarthritis of hands, 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 states residual deficiets Surgical History Surgical History History of surgery on wrist S/P medial meniscus repair of left knee (07/13/19) History of colonoscopy (~03/2021) History of esophagogastroduodenoscopy (EGD) (~03/2021) History of total right knee replacement (TKR) (07/08/17) History of total left knee replacement (03/27/21) Status post foot surgery Status post repair of paraesophageal diaphragmatic hernia Status post vaginal hysterectomy History of appendectomy (~2009) Tobacco Smoking/Tobacco Use Status: Never Passive smoking exposure: No Alcohol Alcohol Intake: never Substance Use Substance use: Never Substance use type: does not use Vital Signs and Lab Results Vital Signs Most Recent Vital Signs in EMR: Most Recent Vital Signs Temp Pulse Resp BP Pulse Ox 36.6 C 90 20 109/77 93 11/22/24 10:10 11/22/24 10:10 11/22/24 10:10 11/22/24 10:10 11/22/24 10:10 Lab Results Blood Type / Crossmatch: No Data to Display Complete Blood Count: No Data to Display Complete Metabolic Panel: No Data to Display Liver Function Panel: No Data to Display Coagulation Panel: No Data to Display Cardiac Panel: No Data to Display Arterial Blood Gas: No Data to Display Venous Blood Gas: No Data to Display Pancreas Panel: No Data to Display Thyroid Panel: No Data to Display Infectious Disease: No Data to Display Blood Cultures: No Data to Display Toxicology Panel: No Data to Display Imaging and Studies Imaging and Studies Study information below may be from another EMR and interpreted by another provider. Please see original notes in EMR for more complete details. Echocardiogram Summary: FINDINGS: Technically limited study. Poor endocardial definition. LEFT VENTRICLE/LVEF: LVEF estimated at approximately 60%. Normal size. RIGHT VENTRICLE: Not well visualized. AORTIC VALVE: [place], no aortic stenosis or insufficiency. MITRAL VALVE: No mitral stenosis or insufficiency. TRICUSPID VALVE: No tricuspid insufficiency. RSV/PA/RIGHT ATRIAL PRESSURE: Right atrial pressure estimated at < 100 mmHg. PULMONIC VALVE: No pulmonic stenosis or insufficiency. ATRIA: Left atrium, right atrium within normal limits. DIASTOLIC INDICES: E/A ratio < 1. Deceleration time 322 milliseconds. E-prime velocity 8 cm/second. E/E-prime ratio < 15. IVRT < 100 milliseconds. GREAT VESSELS: The inferior vena cava is normal in size and collapses with inspiration. PERICARDIUM: No effusion. RHYTHM: Sinus. Carotid Artery Summary:: IMPRESSION: No evidence of hemodynamically significant cervical carotid artery stenosis. Please refer to the cerebrovascular evaluation worksheet for complete details. Anesthesia Assessment and Plan Anesthesia History Personal History: No History of Anesthesia Complications Family History: No Family History of Anesthesia Complications Exercise Tolerance Exercise Tolerance: Metabolic Equivalents>4 Pertinent Negatives Pertinent Negatives: No Symptoms of GERD (well controlled on protonix) and No Major Pulmonary Symptoms or Complaints Cardiac & Pulmonary Exam Cardiac Exam: Normal S1/S2 Heart Sounds Pulmonary Exam: Clear Bilateral Breath Sounds Implantable Cardiac Device Does patient have a Pacemaker or an ICD?: No Airway Exam Known Difficult Airway: No Mallampati Class: 2 Mouth Opening: Normal (> 3cm) Thyromental Distance: Greater than 3 cm Neck Range of Motion: Full ROM Neck Circumference: Normal Teeth Condition: Removable Dentures/Plates Upper and Removable Dentures/Plates Lower ASA Classification ASA Score: ASA 2 Emergency Case?: No NPO Status NPO Status: NPO Clears >2 hours, Solids >8 hours Anesthesia Plan Resuscitation Status: Full Code Anesthesia Technique: General Anesthesia Airway Planned: Natural Airway Monitors Used: Standard Monitors Preoperative Comments:: 74 y/o female with history of JESSICA, anxiety, depression, HLD, GERD and insomnia presents for colonoscopy screening. Her last screening was in 2020, which was remarkable for tubular adenomatous polyps x 5.
[2024-11-22 11:18] VITALS: BMI 28.9
--- NOTE | 2024-11-22 11:45 | BOWEL_PTH ---
PATIENT: Julissa Davis LOC: [facility] U#:[id number] AGE/SX: 74/F ROOM: RE11/22/[address]: Julius Gant MD : [id number] BED: DIS: 11/22/2024 SPEC #: [id number] RECD: 11/22/24 12:35 STATUS: SOUAntony REQ #: [id number] JAYLON: 11/22/24 11:[address]: Julius Gant DEPT: Surgical Specimen RECD BY: Ashley Hernandez ENTERED: 11/22/24 12:35 SP TYPE: Bowel OTHR DR: Jose Ramos MD Tissues: 1 - BIOPSY BOWEL Procedures: GROSS AND MICRO LEVEL 4 Comments: [id number]
[2024-11-22 11:58] VITALS: BP 118/66; PULSE 73; RESP 18; TEMP 36.5; O2SAT 94
--- NOTE | 2024-11-22 12:11 | W.ANESPOSTOP ---
Postoperative Evaluation Date, Time and Location Date Performed: 11/22/24 Time Performed: 12:11 Patient Location: Day Surgery Unit Vital Signs Most Recent Imported Vital Signs: Most Recent Vital Signs Temp Pulse Resp BP Pulse Ox 36.5 C 73 18 118/66 94 11/22/24 11:58 11/22/24 11:58 11/22/24 11:58 11/22/24 11:58 11/22/24 11:58 Pain Score Most Recent Pain Score: Most Recent Pain Score Pain Level 0 11/22/24 11:58 Assessment Mental Status: Awake (Alert & Oriented to Patient Baseline) Airway and Respiratory Function: Patent airway with normal (patient baseline) respiratory exam Cardiovascular Function: Hemodynamically Stable Hydration Status: Adequately Hydrated Nausea & Vomiting: No Nausea or Vomiting Pain: Pt. Denies Any Pain Peripheral Nerve Block: Patient did not receive a nerve block
[2024-11-22 12:20] VITALS: BP 116/69; PULSE 64; RESP 18; TEMP 36.3; O2SAT 96
== END 2024-11-22 12:47 | disposition home or self-care (01) ==
LOC: SUR 09:51
PROVIDERS: PCP Family Medicine; Visit Provider Surgery
PROC: 0DJD8ZZ Inspection of Lower Intestinal Tract, Via Natural or Artificial Opening Endoscopic (ICD-10-PCS; CPT 45378; principal; 2024-11-22 11:15)
DX: Z12.11 Encounter for screening for malignant neoplasm of colon (principal); K57.30 Diverticulosis of large intestine without perforation or abscess without bleeding; D12.3 Benign neoplasm of transverse colon; Z86.0101 Personal history of adenomatous and serrated colon polyps
CPT/HCPCS: 45380; 88305; J2704

== ENCOUNTER 2024-11-25 02:56 | Outpatient (RCR) | payer MEDICARE, SELFPAY ==
[2024-11-25] MEDS: Normal Saline Flush 10 ML SYR IVP (10:11)
[2024-11-25] MEDS: ZOLEDRONIC ACID/MANNITOL/WATER 5 MG/100 ML BTL 300 MG IVPB (10:16)
== END 2024-12-04 23:59 | disposition home or self-care (01) ==
LOC: INF 02:56
PROVIDERS: PCP Family Medicine; Visit Provider Nurse Practitioner Family
DX: M81.0 Age-related osteoporosis without current pathological fracture (principal)
CPT/HCPCS: 96365; J3489

== ENCOUNTER 2025-02-03 01:59 | Outpatient (CLI) | payer MEDICARE, SELFPAY ==
--- NOTE | 2025-02-03 11:45 | DI.MAMMO_ITS ---
Exam(s) MAMMO SCREENING EXAM: MAMMO SCREENING CLINICAL HISTORY: screening. TECHNIQUE: Bilateral full field digital CC and MLO mammographic images were obtained with 3D tomosynthesis and utilizing computer aided detection (CAD). COMPARISON: Prior mammograms were reviewed. FINDINGS: There has been no significant change in the appearance and distribution of the fibroglandular tissue. No CAD designations. There are no new spiculated masses nor malignant appearing microcalcification groups. There is no significant architectural distortion nor skin thickening-retraction. IMPRESSION: No radiographic evidence of malignancy. BI-RADS Category 1 - Negative Breast Density - Category B - There are scattered areas of fibroglandular density. Breast density Category C or D implies that the patient has dense breast tissue. Dense breast tissue can make it harder to find cancer on a mammogram. Dense breast tissue is also associated with an increased risk of breast cancer. This information about the result of the mammogram report was provided to the patient to raise their awareness. Use this report when you speak with the patient about their risks for breast cancer, which includes their family history. At that time, you may recommend additional screening tests (Ultrasound or MRI) as these tests may add significant information. A negative radiographic report should not delay biopsy if a dominant or clinically suspicious mass is present. Up to ten percent of cancers are not identified on mammography. A negative report may reinforce clinical impression. Adenosis and dense breasts may obscure an underlying neoplasm. False positive reports average 6 to 10%. Patient will receive a letter notifying them of these results.
== END 2025-02-03 02:19 ==
PROVIDERS: PCP Family Medicine; Visit Provider Obstetrics & Gynecology
DX: Z12.31 Encounter for screening mammogram for malignant neoplasm of breast (principal); R92.323 Mammographic fibroglandular density, bilateral breasts
CPT/HCPCS: 77063; 77067

== ENCOUNTER 2025-03-14 22:22 | Emergency (ER) | payer MEDICARE, SELFPAY ==
[2025-03-14] VITALS (15 sets, daily range): BP systolic 127–141; BP diastolic 63–85; PULSE 96–111; RESP 14–23; TEMP 37.2; O2SAT 80–97
--- NOTE | 2025-03-14 22:15 | RT.EKG_ITS ---
APPROVED REPORT Exam: Resting ECG Reason for Exam: trauma Patient Location: E HR:104 bpm ECG Measurements Heart Rate 104 AXIS NV 167 P 41 QRSd 74 QRS -24 QT 361 T 5 QTc 474 Conclusion Sinus tachycardia...rate> 99 Ventricular premature complex...V complex w/ short R-R interval Low voltage, precordial leads...precordial leads <1.0mV I have reviewed and interpreted ECG and agree with software generated interpretation.
--- NOTE | 2025-03-14 22:30 | DI.CT_ITS ---
Exam(s) CT HEAD CERV SPINE FACIAL WO EXAM: CT HEAD CERV SPINE FACIAL WO CLINICAL HISTORY: fall 5ft, landed on head/neck. TECHNIQUE: Imaging Protocol: Axial computed tomography images with coronal and sagittal reformatted images were created and reviewed COMPARISON: CT CT SINUS WO from 04/09/2023 FINDINGS: CT Head: Ventricles and Extra axial spaces: Normal in size and morphology for the patient's age. Hemorrhage: None. Cerebral parenchyma: No evidence of acute hemorrhage or acute infarct. Midline shift: None. Brainstem/Cerebellum: Normal. Calvarium: Normal. Visualized Paranasal sinuses/Mastoids: There is mucous retention and mucosal thickening of the right maxillary sinus. Soft Tissues: Unremarkable. CT Face: Facial Bones: No fracture is noted in facial bones. Sinuses and Mastoids: Mucous retention and mucosal thickening of the right maxillary sinus. Remaining sinuses and mastoid air cells are clear. Globes, extraocular muscles, optic nerves and retrobulbar fat: Normal. Upper aerodigestive tract: Normal. Mandible and bilateral temporomandibular joints: Normal. Soft tissues: Normal. CT Cervical Spine: Bones: No acute fracture or subluxation. Degenerative disc changes and facet degenerative changes are present. There is narrowing and endplate osteophyte formation at C5-6 and C6-7. There is mild central canal stenosis at C5-6. There is bilateral neural foraminal narrowing at C5-6. There is severe right- sided neural foraminal narrowing at C3-4. There is left-sided neural foraminal narrowing at C4-5, C6-7 and C7-T1. Soft Tissues: Unremarkable. The common carotid arteries dear toward the midline, anterior to the cervical spine in the mid cervical level. Lung Apices: Clear. IMPRESSION: 1. No acute intracranial process. No evidence of skull fracture. 2. No acute fracture or subluxation in the cervical spine. Degenerative changes, greatest at C5-6. 3. No acute facial fracture. Chronic right maxillary sinus disease. The preliminary [facility] report was reviewed. RADIATION DOSE DELIVERED: Total DLP DATA REPOSITORY: All CT scans at this facility are submitted to the National Radiology Data Registry (NRDR) Dose Index Registry (DIR) with the [employer] ([employer]). RADIATION OPTIMIZATION: All CT scans at this facility use at least one of these dose optimization techniques: automated exposure control; mA and/or kV adjustment per patient size (includes targeted exams where dose is matched to clinical indication); or iterative reconstruction.
--- NOTE | 2025-03-14 22:34 | DI.CT_ITS ---
Exam(s) CT CHEST/ABD/PEL W CT THORACIC LUMBAR SPINE REC EXAM: CT CHEST/ABD/PEL W CLINICAL HISTORY: fall 5ft, bilateral rib pain (worse on L), midback. TECHNIQUE: Imaging Protocol: Axial computed tomography images with coronal and sagittal reformatted images were created and reviewed. Computer aided detection (CAD) was utilized. Axial, coronal and sagittal images of the thoracic and lumbar spine were reconstructed from the chest abdomen pelvic CT. CONTRAST MATERIAL: Intravenous: Omnipaque 350 Contrast volume:75 ml Oral: no COMPARISON: CT CT ABDOMEN PELVIS W from 06/13/[address] THORACIC LUMBAR SPINE REC from 03/14/2025 CR XR PORTABLE CHEST AP from 03/15/2025 FINDINGS: CHEST: Pulmonary parenchyma: No consolidation. No dominant measurable mass. Tracheobronchial tree: No bronchiectasis. No mucous plugging.No bronchial wall thickening. Pleura: No effusion or pneumothorax. Mediastinum: Small hiatal hernia. Pulmonary arteries: No visible emboli. Cardiovascular: No pericardial effusion. Thoracic aorta non-dilated. Bones: There are nondisplaced fractures of the left 7th and 8th ribs. There are fractures of the lateral right 4th through 9th ribs. No lytic or blastic lesions. There is a mild compression fracture of the superior endplate of T11 which is suspicious for an acute fracture. Remaining vertebral bodies are unremarkable. Degenerative disc changes with endplate osteophytes are present in the midthoracic levels.. Soft tissues: Unremarkable. ABDOMEN and PELVIS: Liver: Normal density. No suspicious mass. Gallbladder and biliary tract: No evidence of stones or wall thickening. No biliary dilatation. Pancreas: Normal density, no abnormal calcifications or inflammatory process. Spleen: Normal. Kidneys: Normal size, contour and axis. No radiodense stones. No obstructive uropathy. Left renal cysts are again noted. No suspicious masses seen. Adrenal glands: No masses seen. Aorta: Abdominal portion non-dilated. Lymph nodes: Within normal limits. Soft tissues: Prior ventral hernia repair with mesh in place. No new hernias. Bladder: Unremarkable. Bowel: No obstruction or bowel wall thickening. Normal quantity of stool. The appendix is not seen. Peritoneal cavity: No ascites. No focal collection. No mesenteric inflammatory response. No free air. Bones: No evidence of spine or pelvic fracture. There degenerative disc changes at L5-S1. Reproductive organs: Hysterectomy. Small bilateral ovarian cysts. These appear stable from prior exam. IMPRESSION: Bilateral rib fractures. No pneumothorax. Mild compression of the superior endplate of T11, likely acute. No acute abnormality in the abdomen or pelvis. No acute abnormality in the lumbar spine. The preliminary [facility] report was reviewed. RADIATION DOSE DELIVERED: Total DLP DATA REPOSITORY: All CT scans at this facility are submitted to the National Radiology Data Registry (NRDR) Dose Index Registry (DIR) with the [employer] (ACR). RADIATION OPTIMIZATION: All CT scans at this facility use at least one of these dose optimization techniques: automated exposure control; mA and/or kV adjustment per patient size (includes targeted exams where dose is matched to clinical indication); or iterative reconstruction.
--- NOTE | 2025-03-14 22:39 | ED.GENADUL_ITS ---
Discharge Plan Disposition Patient Disposition: Home Condition: Good Discharge Details Clinical Impression: Fracture of left sixth rib, Fracture of left seventh rib, Fracture of right sixth rib Primary Care Provider: Jose Ramos ED Provider: Dexter Linn Home Meds and New Rx's Prescriptions: New lidocaine [Lidoderm] 5 % adhesive patch,medicated 1 patch Topical Q24H Qty: 15 0RF No Action atorvastatin 40 mg tablet 40 mg PO DAILY Qty: 90 3RF doxycycline hyclate 100 mg capsule 100 mg PO BID Qty: 14 0RF Rx Instructions: Avoid sun exposure. Take with meal. Take 1 pill every 12 hours x 7 days multivitamin [Multi-Day] 1 EACH tablet 1 ea PO DAILY calcium carbonate-vitamin D3 1 EACH tablet 1 ea PO DAILY VITAMIN B COMPLEX 1 EACH tablet 1 ea PO DAILY Cane Qty: 1 0RF Rx Instructions: Please use cane for ambulation support and gait training due to weakness following total knee replacement. trazodone 50 mg tablet 50 - 100 mg PO QHS PRN (Reason: sleep) Qty: 180 3RF zoledronic [id number] [Reclast] 5 mg/100 mL piggyback See Rx Instructions IV ONCE Rx Instructions: 100 ml intravenously once; administer over at least 15 mins pantoprazole 40 mg tablet,delayed release (DR/EC) 40 mg PO DAILY Qty: 90 3RF paroxetine HCl 40 mg tablet 40 mg PO DAILY Qty: 90 3RF ascorbic acid (vitamin C) [Vitamin C] 1,000 mg Tablet 1,000 mg PO PRN PRN acetaminophen 500 mg tablet 1,000 mg PO TID Qty: 90 3RF Discharge Instructions Instructions: Rib fractures in adults Additional Instructions: At this time your CAT scan has returned and shows evidence of fractures of your 6 rib on the right and 6th and 7th rib on the left. Thankfully these are mild fractures. Please use the incentive spirometer 6-10 times per day to help prevent pneumonia. To help with the pain please apply the Lidoderm patches daily as prescribed. You can take 2000 mg of Tylenol every 6 hours as needed for pain. This is the maximum dose. If you find that the pain is still too unbearable, you can return for a rib block placed by our anesthesia team. If you notice any worsening of your symptoms, or any new symptoms such as vomiting, diarrhea, fever, chills, shortness of breath, chest pain, numbness, weakness, or fainting , please return immediately to the emergency department for reevaluation. Please follow up with your primary care provider as soon as possible for reassessment and reevaluation. As always, it was a pleasure participating in your medical care today. Referrals: Jose Ramos MD [Primary Care Provider, Medicine] HPI General Date/Time Provider Initiated Documentation: 03/14/25 22:34 . HPI Narrative: This is a 74-year-old female with a past medical history of GERD, obstructive sleep apnea, high cholesterol, previous leg DVT, previous stroke, not currently on any anticoagulation, with a previous surgical history of bilateral knee surgery, hiatal hernia surgery, who presents today for evaluation of fall. Patient was at home when she was walking, her left knee felt weak, it gave out and she fell off the wheelchair ramp. She fell 4 feet down, landed on her head and neck as well as the left side of her chest. She was unable to get up and she was on the ground for about 45 minutes. It is quite cool out. She denies any numbness or tingling during that event, no suprapubic or loss of consciousness. Pain is primarily in focused in her chest, back, and lower neck. She denies any shortness of breath. She denies any abdominal pain. She denies any numbness or tingling in her arms or legs otherwise. No other complaints at this time. No other modifying factors. Related Data Home Medications ?Medication ?Instructions ?Recorded ?Confirmed calcium 600 mg (as 1 ea PO DAILY 10/10/1211/22 carbonate)-vitamin D3 5 mcg (200 unit) tablet multivitamin (Multi-Day tablet) 1 ea PO DAILY 10/10/12 11/22/24 Vitamin B Complex 1 ea PO DAILY 04/26/1311/22 ascorbic acid (vitamin C) 1,000 mg 1,000 mg PO PRN PRN 07/23/19 11/22/24 tablet (Vitamin C) acetaminophen 500 mg tablet 1,000 mg (2 x 500 mg) PO T ID #90 12/03/23 11/19/24 tabs atorvastatin 40 mg tablet 40 mg PO DAILY #90 tabs 03/0811/22/24 trazodone 50 mg tablet 50 - 100 mg (1 - 2 x 50 mg) PO QHS 06/21/24 11/19/24 PRN sleep #180 tabs zoledronic acid 5 mg/100 mL in See Rx Instructions IV ONCE 11/12/24 mannitol 5 %-water intravenous piggybck (Reclast) pantoprazole 40 mg tablet,delayed 40 mg PO DAILY #90 t abs 12/13/24 release paroxetine HCl 40 mg tablet 40 mg PO DAILY #90 tabs doxycycline hyclate 100 mg capsule 100 mg PO BID #14 c aps 12/21/24 12/21/24 lidocaine 5 % topical patch 1 patch topical Q24H #15 e a 03/15/25 (Lidoderm) Previous Rx's ?Medication ?Instructions ?Recorded acetaminophen 500 mg tablet 1,000 mg (2 x 500 mg) PO T ID #90 12/03/23 tabs atorvastatin 40 mg tablet 40 mg PO DAILY #90 tabs 03/08 12/28 trazodone 50 mg tablet 50 - 100 mg (1 - 2 x 50 mg) PO QHS 06/21/24 PRN sleep #180 tabs zoledronic acid 5 mg/100 mL in See Rx Instructions IV ONCE 11/12/24 mannitol 5 %-water intravenous piggybck (Reclast) pantoprazole 40 mg tablet,delayed 40 mg PO DAILY #90 t abs 12/13/24 release paroxetine HCl 40 mg tablet 40 mg PO DAILY #90 tabs doxycycline hyclate 100 mg capsule 100 mg PO BID #14 c aps 12/21/24 lidocaine 5 % topical patch 1 patch topical Q24H #15 e a 03/15/25 (Lidoderm) Allergies Allergy/AdvReac Type Severity Reaction Status Date / Time amoxicillin trihydrate (From AdvReac Severe DIARRHEA Verified 12/21/24 14:51 Augmentin) morphine AdvReac Severe HEART Verified 12/21/24 14:51 PALPITATIONS amoxicillin (From Augmentin) AdvReac Intermediate diarrhea Verified 12/21/24 14:51 clavulanic acid (From AdvReac Intermediate diarrhea Verified 12/21/24 14:51 Augmentin) Sulfa (Sulfonamide AdvReac Mild PRURITIS Verified 12/21/24 14:51 Antibiotics) General Stated Complaint: Fall/Non TraumaCriteria DUSTY: 2 Exam Narrative Exam Narrative: 1.Const: Well-nourished, Well-developed, appearing stated age 2.Eyes: PERRL, no conjunctival injection, and symmetrical lids. 3.ENT: There is no evidence of raccoon eyes, arboleda sign, CSF rhinorrhea, mastoid tenderness, cranial crepitus, hemotympanum, exophthalmos, or hyphema. Patient demonstrates intact dentition with no signs of tooth avulsion or fracture, no signs of jaw deformity, no evidence of a LeFort's fracture, with an intact palate, nose and orbital region. There is no evidence of a nasal septal hematoma. No proptosis. Jaw closes symmetrically. Airway is clear. 4.CVS: Regular rate and rhythm, Normal s1 and s2. No murmurs, carotid bruits, rubs, or gallops. Radial pulses 2+ bilaterally and symmetric. Dorsalis pedis pulses 2+ bilaterally and symmetric. 2+ capillary refill. No evidence of distant heart sounds. No extremity edema. No evidence of gross hemorrhage. 5.RESP: Airway clear, no obstructions. No abrasions or ecchymosis. Chest movement symmetric with respirations. Notable chest wall tenderness is present over the left anterior and left lateral chest wall as well as a small amount on the right lateral chest wall.. Trachea midline. No crepitus. No step offs. No paradoxical movements. Lungs are clear to auscultation bilaterally. No rales, rhonchi, wheezing or stridor. Breath sound symmetric. No Sucking chest wounds. 6.GI: Soft, Nontender/Nondistended, No hepatosplenomegaly. No guarding or rebound. 7.MSK: No gross deformities or discolorations or lesions. Tolerates full range of motion of extremities without tenderness. All compartments of upper and lower extremities are soft with no tenderness. Vascular exam demonstrates brisk capillary refill and intact pulses in all extremities. Pelvic exam demonstrates a stable pelvis, nontender to lateral compression and palpation of symphysis pubis.. No clinical evidence of significant musculoskeletal trauma. There is evidence of mild tenderness over the upper thoracic vertebra around T1, as well as T6/T7. 8.Skin: Warm, Dry. No rashes or lesions. 9.Neuro: instrumentation engineer II-XII grossly intact. Sensation grossly intact, no focal neurologic deficits. 10.Psych: (AAO) x3. Appropriate mood and affect Course Vital Signs Vital signs: Vital Signs Temperature 37.2 C 03/14/25 22:21 Pulse 110 H 03/14/25 22:21 Respiratory Rate 18 03/14/25 22:21 Blood Pressure 136/85 03/14/25 22:21 Pulse Oximetry 95 03/14/25 22:21 Temperature 37.2 C 03/14/25 22:21 Temperature Source Tympanic 03/14/25 22:21 Pulse 110 H 03/14/25 22:21 Respiratory Rate 18 03/14/25 22:21 Blood Pressure 136/85 03/14/25 22:21 Pulse Oximetry 95 03/14/25 22:21 Oxygen Delivery Method Room Air 03/14/25 22:21 Oxygen Flow Rate 0 03/14/25 22:21 Pain Level 8 03/14/25 22:21 Medical Decision Making This is a 74-year-old female with a past medical history of A-fib, GERD, obstructive sleep apnea, high cholesterol, previous leg DVT, previous stroke, not currently on any anticoagulation, with a previous surgical history of bilateral knee surgery, hiatal hernia surgery, who presents today for evaluation of fall. Patient was at home when she was walking, her left knee felt weak, it gave out and she fell off the wheelchair ramp. She fell 4 feet down, landed on her head and neck as well as the left side of her chest. She was unable to get up and she was on the ground for about 45 minutes. It is quite cool out. She denies any numbness or tingling during that event, no suprapubic or loss of consciousness. Pain is primarily in focused in her chest, back, and lower neck. She denies any shortness of breath. She denies any abdominal pain. She denies any numbness or tingling in her arms or legs otherwise. No other complaints at this time. No other modifying factors. Exam demonstrates tenderness on the left anterior and lateral ribs as well as the right lateral ribs, there is also some tenderness around T1 and T6. This is midline. Concern for rib fracture, osseous injury, less likely brain bleed. We we will get CT imaging of the head neck chest abdomen pelvis with thoracic and lumbar spine recons. Patient does not want anything else for pain meds at this time. She did receive ofiramev by EMS. She has no tenderness on her ex tremities otherwise, no other evidence of significant osseous injury. No knee tenderness. Will monitor closely and reassess. 11:[address] imaging shows evidence of a fracture of the right sixth rib as well as 1/6 and seventh left rib, minimal scalloping at the T11 superior endplate, but no other significant traumatic abnormality of the head neck chest abdomen pelvis or spine. Patient was given Lidoderm patches, Tylenol, Toradol, and still does have some soreness but feels that it is tolerable at this stage. She has been warmed up with a bear hugger and feels much better and warmer at this time. No evidence of hypothermia. Laboratory workup otherwise benign, renal function stable, hemoglobin level stable. Patient's lipase was mildly elevated, she is not tender in the epigastric region though, she has no vomiting. She has a normal bilirubin, and does not drink alcohol. Symptoms inconsistent with pancreatitis. Evaluation may be elevated secondary to the trauma, however the remainder of her CT scan with contrast shows no other evidence of hollow viscus injury. With an otherwise nontender abdomen, being able to tolerate p.o., not showing any other abnormalities I do feel patient is stable for discharge. She will be sent home with an incentive spirometer, we have applied Lidoderm patches here and will send a prescription to her pharmacy. Discussed red flags for which to return. I have extensively reviewed the treatment plan and discharge instructions with the patient. I have addressed all patient concerns at this time. The patient was made aware of what symptoms to monitor for that would warrant a return to the emergency department. Discussed the plan with the patient, they demonstrate verbal understanding and agreement with our assessment and plan at this time. The documentation in this chart was dictated using [employer] dictation software. Please excuse any dictation errors. FINDINGS: Brain: No acute intracranial hemorrhage, mass-effect, midline shift, or extra- axial collection is seen. The stiles white matter differentiation appears preserved. Cerebral ventricles: The ventricular system and basilar cisterns appear appropriate in size and configuration. Paranasal sinuses: CT imaging through the facial bones was obtained concurrently and has been dictated separately. Mastoid air cells: The mastoid air cells appear well-aerated. Auditory system: The middle ear cavities appear clear. Bones: The bony calvarium appears intact. No depressed skull fracture is seen. Soft tissues: There is a moderate-sized scalp contusion at the left vertex. IMPRESSION: No acute intracranial hemorrhage or depressed skull fracture FINDINGS: Paranasal sinuses: There is thick mucoperiosteal thickening in the right maxillary sinus suggesting chronic sinusitis. Otherwise all clear Orbital cavities: The globes and intraorbital structures appear grossly intact. Teeth: The patient is edentulous. Bones: No acute facial fracture is seen. Soft tissues: No gross asymmetric soft tissue swelling is seen in the face. IMPRESSION: No acute facial fracture is seen. FINDINGS: Bones/joints: No acute cervical fracture or malalignment is seen. C2-C3: Disc height preserved. Moderate left-sided facet arthrosis. No central canal narrowing or neural foraminal narrowing. C3-C4: Disc height preserved. Severe facet arthrosis on the right. Small broad- based posterior disc bulge abutting the thecal sac. No central canal narrowing or significant left- sided foraminal narrowing. Severe right-sided foraminal narrowing. C4-C5: Disc height preserved. Anterior osteophytes. Moderate-severe facet arthrosis on the left. No central canal narrowing. No significant right-sided foraminal narrowing. Moderate left-sided foraminal narrowing. C5-C6: Loss of disc height with anterior osteophyte formation, posterior osteophytic ridging, and bilateral uncovertebral hypertrophy. Mild central canal narrowing. Moderate bilateral foraminal narrowing. C6-C7: Disc height relatively preserved. Anterior osteophytes. Posterior osteophytic ridging with uncovertebral hypertrophy on the left. No central canal narrowing. No right- sided foraminal narrowing. No significant left-sided foraminal narrowing. C7-T1: Extensive artifact largely obscuring this level. Mild loss of disc height. Severe facet arthrosis on the left. No central canal narrowing or right-sided foraminal narrowing. Mild left-sided foraminal narrowing. Thyroid: The thyroid gland appears normal in size. There is a coarse thyroid calcification on the right. Lungs: The visualized extreme lung apices appear clear. Soft tissues: Within the limits of the exam, no gross soft tissue fluid collection is seen in the neck. IMPRESSION: No acute cervical fracture or malalignment is seen. Thank you for allowing us to participate in the care of your patient. Dictated and Authenticated by: London Barrios MD 03/14/2025 11:33 PM Eastern Time ([place] & [place]) FINDINGS: Trachea: Major airways are patent. Lungs: No consolidation. Pleural spaces: Unremarkable. No pneumothorax. No pleural effusion. Heart: Heart size is normal. No pericardial effusion. Coronary arteries: No coronary artery calcification. Lymph nodes: No pathologic sized adenopathy. Vasculature: Atherosclerotic disease. No aortic aneurysm or dissection. Diaphragm: Small hiatus hernia. Bones/joints: There is a mildly displaced fracture of the right lateral 6th rib. . Nondisplaced fractures of the left anterior sixth and 7th ribs. There is minimal scalloping of the T11 superior endplate of undetermined age. Soft tissues: Unremarkable. IMPRESSION: Displaced fracture of the right lateral 6th rib and nondisplaced fractures of the left anterior 6th and 7th ribs. Minimal scalloping of the T11 superior endplate of undetermined age. FINDINGS: Liver: Normal. No mass. Gallbladder and biliary ducts: Normal. No calcified stones. No ductal dilation. Pancreas: Normal. No ductal dilation. Spleen: Normal. No splenomegaly. Adrenal glands: Normal. No mass. Kidneys and ureters: Kidneys enhance symmetrically. No stones or hydronephrosis. Bilateral renal cysts. Stomach and bowel: Small hiatus hernia. Small bowel and colon are unremarkable. Appendix: Appendectomy. Intraperitoneal space: Unremarkable. No free air. No significant fluid collection. Vasculature: Mild atherosclerotic disease. No aortic aneurysm. Lymph nodes: Unremarkable. No enlarged lymph nodes. Urinary bladder: Unremarkable as visualized. Reproductive: Hysterectomy. Left ovarian 2.7 cm cyst. 2.5 cm right adnexal cyst. Bones/joints: No acute fracture. Hips are normally aligned. Degenerative changes in the spine. Soft tissues: Ventral hernia repair with mesh. IMPRESSION: No acute findings. Small hiatus hernia. FINDINGS: Bones/joints: There is minimal (less than 10%) scalloping of the T11 superior endplate of undetermined age. Degenerative changes throughout the spine. Normal alignment. No significant central canal narrowing or focal disc herniation. Neural foramina are unremarkable. Soft tissues: Unremarkable. IMPRESSION: Minimal scalloping of the T11 superior endplate of undetermined age. Rest of the exam is unremarkable. FINDINGS: Bones/joints: Normal alignment. No acute fracture. Degenerative changes at the L5-S1 disc space with vacuum disc phenomena. No significant central canal narrowing or focal disc herniation. No significant foraminal stenosis. Soft tissues: Unremarkable. IMPRESSION: No acute findings. Thank you for allowing us to participate in the care of your patient. 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) Right PIP joint injection ~20 mg Depo Medrol: 04/28/23 Generalized anxiety disorder (Chronic) Major depressive disorder, recurrent (Chronic) JESSICA (obstructive sleep apnea) (Chronic) No CPAP GERD (gastroesophageal reflux disease) (Chronic) Bilateral ovarian cysts (Chronic) Sigmoid diverticulosis (Chronic) Osteoarthritis of hands, bilateral (Chronic) Chronic right-sided low back pain without sciatica (Chronic) Osteoporosis (Chronic) Dysphagia (Chronic) Insomnia (Chronic) Hyperlipidemia (Chronic) Allergic rhinitis (Chronic) Medical History Right leg DVT (~2017) CVA (cerebral vascular accident) (~2014) Per pt. states residual deficiets Surgical History History of surgery on wrist S/P medial meniscus repair of left knee (07/13/19) History of colonoscopy (~11/2024) biopsies taken History of esophagogastroduodenoscopy (EGD) (~03/2021) History of total right knee replacement (TKR) (07/08/17) History of total left knee replacement (03/27/21) Status post foot surgery Status post repair of paraesophageal diaphragmatic hernia Status post vaginal hysterectomy History of appendectomy (~2009) Family History Mother , at 55 from [place] Heart disease COPD (chronic obstructive pulmonary disease) Myocardial infarction Father , Suicide at 50 Alcohol use disorder Sister COPD (chronic obstructive pulmonary disease) Sister COPD (chronic obstructive pulmonary disease) Heart disease Sister No problems noted. Sister No problems noted. Sister Alcohol use disorder Sister No problems noted. Brother Myocardial infarction Heart disease Brother No problems noted. Brother Alcohol use disorder Leukemia Son Congenital heart defect Son Hypertension Maternal Grandfather , 40s Heart disease Maternal Grandmother , 40s Heart disease Paternal Grandfather , 89 Alcohol use disorder Paternal Grandmother , from eclampsia No problems noted. Social History Smoking/Tobacco Use Status: Never Smoking risk assessment performed?: Yes Alcohol Intake: never Drug use: Never Substance use type: does not use Counseling given: No Caregiver/Support person: No Household members: spouse Housing: house Do you need help understanding health information?: Rarely Pets and animals: No Sexually active: No Do you think of yourself as: straight/heterosexual Current gender identity: female What is your relationship status?: How often do you talk on the phone with friends or family?: three or more times per week How often do you attend zoroastrian or restorationism services?: 1-3 times per year Do you belong to any clubs or organized social groups?: no Panel score (0-1 are the most socially isolated patients): 2 Frequency: 1-2 times per week Crystal/Pentecostalism: [employer] Seatbelt use: always Drive intox or ride w/intox frontload driver: No Do you feel safe at home: Yes Do you feel safe in your relationship?: Yes
[2025-03-14 22:44] LABS: Abs Immature Grans 0.16 10^3/uL (0.0-0.06); HCT 40.1 % (36.0-46.0); HGB 12.9 g/dL (11.2-15.7); Immature Grans % 1.4 %; MCH 29.1 pg (27.0-33.0); MCHC 32.2 % (32.0-36.0); MCV 90 fL (80-95); MPV 9.0 fL (8.0-11.0); Platelet Count 206 10^3/uL (130-400); RBC 4.44 10^6/uL (3.93-5.22); RDW 11.8 % (11.7-14.6); RDW-SD 38.8 fL; WBC 11.05 10^3/uL (4.4-10.8)
[2025-03-14 22:58] LABS: INR 1.0 (0.9-1.1); PTT Activated 23.2 sec (20.6-30.2); Prothrombin Time 9.9 sec (9.1-11.1)
[2025-03-14 23:05] LABS: ALT 27 U/L (14-59); AST 31 U/L (15-37); Albumin 3.7 g/dL (3.4-5.0); Alkaline Phosphatase 56 U/L (46-116); Anion Gap 7.7 mmol/L (3-11); BUN 15 mg/dL (7-18); Bilirubin, Total 0.5 mg/dL (0.2-1.0); CO2 30.3 mmol/L (21.0-32.0); Calcium 9.5 mg/dL (8.5-10.1); Chloride 103 mmol/L (98-107); Estimated GFR 76.31 (mL/min/1.73m2); Glucose 106 mg/dL (74-106); Potassium 4.1 mmol/L (3.5-5.1); Sodium 141 mmol/L (136-145); Total Protein 6.7 g/dL (6.4-8.2); Troponin I 8 ng/L (<or=51)
[2025-03-14] MEDS: Normal Saline - Diluent 50 ML VIAL IJ (23:08)
[2025-03-14] MEDS: Omnipaque 350 MG/ML 100 ML BTL IJ (23:09)
[2025-03-14] MEDS: Normal Saline Flush 10 ML SYR IVP (23:09)
[2025-03-14 23:13] LABS: Lipase 124 U/L (<78)
--- NOTE | 2025-03-14 23:34 | DI.VRAD_ITS ---
PROCEDURE INFORMATION: Exam: CT Head Without Contrast Exam date and time: 03/14/2025 10:53 PM Age: 74 years old Clinical indication: Injury or trauma; Fall and other: Fall 5ft, landed on head/neck; Blunt trauma (contusions or hematomas); Consciousness not specified TECHNIQUE: Imaging protocol: Computed tomography of the head without contrast. COMPARISON: CT SINUS WO 04/09/2023 1:56 PM FINDINGS: Brain: No acute intracranial hemorrhage, mass-effect, midline shift, or extra-axial collection is seen. The stiles white matter differentiation appears preserved. Cerebral ventricles: The ventricular system and basilar cisterns appear appropriate in size and configuration. Paranasal sinuses: CT imaging through the facial bones was obtained concurrently and has been dictated separately. Mastoid air cells: The mastoid air cells appear well-aerated. Auditory system: The middle ear cavities appear clear. Bones: The bony calvarium appears intact. No depressed skull fracture is seen. Soft tissues: There is a moderate-sized scalp contusion at the left vertex. IMPRESSION: No acute intracranial hemorrhage or depressed skull fracture. PROCEDURE INFORMATION: Exam: CT Maxillofacial Without Contrast Exam date and time: 03/14/2025 10:53 PM Age: 74 years old Clinical indication: Injury or trauma; Fall and other: Fall 5ft, landed on head/neck; Blunt trauma (contusions or hematomas); Consciousness not specified TECHNIQUE: Imaging protocol: Computed tomography of the face without contrast. COMPARISON: CT SINUS WO 04/09/2023 1:56 PM FINDINGS: Paranasal sinuses: There is thick mucoperiosteal thickening in the right maxillary sinus suggesting chronic sinusitis. Otherwise all clear Orbital cavities: The globes and intraorbital structures appear grossly intact. Teeth: The patient is edentulous. Bones: No acute facial fracture is seen. Soft tissues: No gross asymmetric soft tissue swelling is seen in the face. IMPRESSION: No acute facial fracture is seen. PROCEDURE INFORMATION: Exam: CT Cervical Spine Without Contrast Exam date and time: 03/14/2025 10:53 PM Age: 74 years old Clinical indication: Injury or trauma; Fall and other: Fall 5ft, landed on head/neck; Blunt trauma (contusions or hematomas); Consciousness not specified TECHNIQUE: Imaging protocol: Computed tomography of the cervical spine without contrast. COMPARISON: CT SINUS WO 04/09/2023 1:56 PM FINDINGS: Bones/joints: No acute cervical fracture or malalignment is seen. C2-C3: Disc height preserved. Moderate left-sided facet arthrosis. No central canal narrowing or neural foraminal narrowing. C3-C4: Disc height preserved. Severe facet arthrosis on the right. Small broad-based posterior disc bulge abutting the thecal sac. No central canal narrowing or significant left-sided foraminal narrowing. Severe right-sided foraminal narrowing. C4-C5: Disc height preserved. Anterior osteophytes. Moderate-severe facet arthrosis on the left. No central canal narrowing. No significant right-sided foraminal narrowing. Moderate left-sided foraminal narrowing. C5-C6: Loss of disc height with anterior osteophyte formation, posterior osteophytic ridging, and bilateral uncovertebral hypertrophy. Mild central canal narrowing. Moderate bilateral foraminal narrowing. C6-C7: Disc height relatively preserved. Anterior osteophytes. Posterior osteophytic ridging with uncovertebral hypertrophy on the left. No central canal narrowing. No right-sided foraminal narrowing. No significant left-sided foraminal narrowing. C7-T1: Extensive artifact largely obscuring this level. Mild loss of disc height. Severe facet arthrosis on the left. No central canal narrowing or right-sided foraminal narrowing. Mild left-sided foraminal narrowing. Thyroid: The thyroid gland appears normal in size. There is a coarse thyroid calcification on the right. Lungs: The visualized extreme lung apices appear clear. Soft tissues: Within the limits of the exam, no gross soft tissue fluid collection is seen in the neck. IMPRESSION: No acute cervical fracture or malalignment is seen. Dictated and Authenticated by: London Barrios MD. Orderin Kaveh Renteria MD
--- NOTE | 2025-03-14 23:36 | DI.VRAD_ITS ---
PROCEDURE INFORMATION: Exam: CT Thoracic Spine Without Contrast Exam date and time: 03/14/2025 10:57 PM Age: 74 years old Clinical indication: Injury or trauma; Fall and other: Fall 5ft, bilateral rib pain (worse on l), midback t6 pain; Blunt trauma (contusions or hematomas) TECHNIQUE: Imaging protocol: Computed tomography of the thoracic spine without contrast. COMPARISON: CT HEAD CERV SPINE FACIAL WO 03/14/2025 10:53 PM FINDINGS: Bones/joints: There is minimal (less than 10%) scalloping of the T11 superior endplate of undetermined age. Degenerative changes throughout the spine. Normal alignment. No significant central canal narrowing or focal disc herniation. Neural foramina are unremarkable. Soft tissues: Unremarkable. IMPRESSION: Minimal scalloping of the T11 superior endplate of undetermined age. Rest of the exam is unremarkable. PROCEDURE INFORMATION: Exam: CT Lumbar Spine Without Contrast Exam date and time: 03/14/2025 10:57 PM Age: 74 years old Clinical indication: Injury or trauma; Fall and other: Fall 5ft, bilateral rib pain (worse on l), midback t6 pain; Blunt trauma (contusions or hematomas) TECHNIQUE: Imaging protocol: Computed tomography of the lumbar spine without contrast. COMPARISON: CT ABDOMEN PELVIS W 06/13/2020 10:20 AM FINDINGS: Bones/joints: Normal alignment. No acute fracture. Degenerative changes at the L5-S1 disc space with vacuum disc phenomena. No significant central canal narrowing or focal disc herniation. No significant foraminal stenosis. Soft tissues: Unremarkable. IMPRESSION: No acute findings. Dictated and Authenticated by: Ary Bobo MD. Orderin Kaveh Renteria MD
--- NOTE | 2025-03-14 23:37 | DI.VRAD_ITS ---
PROCEDURE INFORMATION: Exam: CT Chest With Contrast; Diagnostic Exam date and time: 03/14/2025 10:57 PM Age: 74 years old Clinical indication: Injury or trauma; Fall and other: Fall 5ft, bilateral rib pain (worse on l), midback; Generalized; Blunt trauma (contusions or hematomas) TECHNIQUE: Imaging protocol: Diagnostic computed tomography of the chest with contrast. Contrast material: OMNI 350; Contrast volume: 75 ml; Contrast route: INTRAVENOUS (IV); COMPARISON: CR XR CHEST 2V PA LATERAL 01/11/2022 2:30 PM FINDINGS: Trachea: Major airways are patent. Lungs: No consolidation. Pleural spaces: Unremarkable. No pneumothorax. No pleural effusion. Heart: Heart size is normal. No pericardial effusion. Coronary arteries: No coronary artery calcification. Lymph nodes: No pathologic sized adenopathy. Vasculature: Atherosclerotic disease. No aortic aneurysm or dissection. Diaphragm: Small hiatus hernia. Bones/joints: There is a mildly displaced fracture of the right lateral 6th rib. . Nondisplaced fractures of the left anterior sixth and 7th ribs. There is minimal scalloping of the T11 superior endplate of undetermined age. Soft tissues: Unremarkable. IMPRESSION: Displaced fracture of the right lateral 6th rib and nondisplaced fractures of the left anterior 6th and 7th ribs. Minimal scalloping of the T11 superior endplate of undetermined age. PROCEDURE INFORMATION: Exam: CT Abdomen And Pelvis With Contrast Exam date and time: 03/14/2025 10:57 PM Age: 74 years old Clinical indication: Injury or trauma; Fall and other: Fall 5ft, bilateral rib pain (worse on l), midback; Generalized; Blunt trauma (contusions or hematomas) TECHNIQUE: Imaging protocol: Computed tomography of the abdomen and pelvis with contrast. Contrast material: OMNI 350; Contrast volume: 75 ml; Contrast route: INTRAVENOUS (IV); COMPARISON: CT ABDOMEN PELVIS W 06/13/2020 10:20 AM FINDINGS: Liver: Normal. No mass. Gallbladder and biliary ducts: Normal. No calcified stones. No ductal dilation. Pancreas: Normal. No ductal dilation. Spleen: Normal. No splenomegaly. Adrenal glands: Normal. No mass. Kidneys and ureters: Kidneys enhance symmetrically. No stones or hydronephrosis. Bilateral renal cysts. Stomach and bowel: Small hiatus hernia. Small bowel and colon are unremarkable. Appendix: Appendectomy. Intraperitoneal space: Unremarkable. No free air. No significant fluid collection. Vasculature: Mild atherosclerotic disease. No aortic aneurysm. Lymph nodes: Unremarkable. No enlarged lymph nodes. Urinary bladder: Unremarkable as visualized. Reproductive: Hysterectomy. Left ovarian 2.7 cm cyst. 2.5 cm right adnexal cyst. Bones/joints: No acute fracture. Hips are normally aligned. Degenerative changes in the spine. Soft tissues: Ventral hernia repair with mesh. IMPRESSION: No acute findings. Small hiatus hernia. Bilateral adnexal cysts, largest measuring 2.7 cm on the left. Dictated and Authenticated by: Ary Bobo MD. Orderin Kaveh Renteria MD
[2025-03-14] MEDS: Ketorolac 15 MG/ML VIAL IVP (23:50)
[2025-03-14] MEDS: Lidocaine 5% Patch 2 PATCH TP (23:50)
[2025-03-14 23:58] LABS: Troponin I 8 ng/L (<or=51)
[2025-03-15 00:03] VITALS: BP 130/64; PULSE 106; RESP 20; O2SAT 96
== END 2025-03-15 00:04 | disposition home or self-care (01) ==
PROVIDERS: Emergency Provider Student in an Organized Health Care Education/Training Program; PCP Family Medicine
DX: S22.42XA Multiple fractures of ribs, left side, initial encounter for closed fracture (principal); S22.31XA Fracture of one rib, right side, initial encounter for closed fracture; W19.XXXA Unspecified fall, initial encounter
CPT/HCPCS: 99285; 99284; 36415; 96374; 74177; 80053; 83690; 93005; 70450; 70486; 71260; 72125; 84484; 85025; 85610; 85730; 93010; J1885; J3490

== ENCOUNTER 2025-03-15 13:13 | Inpatient (IN) | payer MEDICARE, SELFPAY ==
[2025-03-15] VITALS (20 sets, daily range): BP systolic 101–134; BP diastolic 54–79; PULSE 68–81; RESP 11–22; TEMP 36.3–36.9; O2SAT 92–98
--- NOTE | 2025-03-15 13:30 | DI.RAD_ITS ---
Exam(s) XR PORTABLE CHEST AP EXAM: XR PORTABLE CHEST AP CLINICAL HISTORY: chest pain TECHNIQUE: 2D digital imaging was performed. COMPARISON: CT CT CHEST/ABD/PEL W from 03/14/2025 FINDINGS: LUNGS: Clear. No pleural abnormality seen. HEART: Normal size. AORTA: Tortuous. BONES: Unremarkable for age. Soft tissues: Unremarkable. IMPRESSION: No acute findings. DATA REPOSITORY: RADIATION DOSE DELIVERED:
[2025-03-15] MEDS: HYDROmorphone 2 MG/ML SYR 0.5 MG IV (14:13)
[2025-03-15 14:15] LABS: Abs Immature Grans 0.03 10^3/uL (0.0-0.06); HCT 35.3 % (36.0-46.0); HGB 11.8 g/dL (11.2-15.7); Immature Grans % 0.3 %; MCH 29.5 pg (27.0-33.0); MCHC 33.4 % (32.0-36.0); MCV 88 fL (80-95); MPV 9.1 fL (8.0-11.0); Platelet Count 186 10^3/uL (130-400); RBC 4.00 10^6/uL (3.93-5.22); RDW 11.8 % (11.7-14.6); RDW-SD 37.7 fL; WBC 9.04 10^3/uL (4.4-10.8)
[2025-03-15] MEDS: Ketorolac 15 MG/ML VIAL IVP ×2 (14:15→19:54)
[2025-03-15 14:30] LABS: ALT 30 U/L (14-59); AST 35 U/L (15-37); Albumin 3.5 g/dL (3.4-5.0); Alkaline Phosphatase 47 U/L (46-116); Anion Gap 6.5 mmol/L (3-11); BUN 18 mg/dL (7-18); Bilirubin, Total 0.8 mg/dL (0.2-1.0); CO2 29.5 mmol/L (21.0-32.0); Calcium 8.9 mg/dL (8.5-10.1); Chloride 105 mmol/L (98-107); Estimated GFR 76.31 (mL/min/1.73m2); Glucose 89 mg/dL (74-106); Potassium 4.0 mmol/L (3.5-5.1); Sodium 141 mmol/L (136-145); Total Protein 6.1 g/dL (6.4-8.2)
--- NOTE | 2025-03-15 15:28 | W.ED.GENAD ---
Discharge Plan Disposition Patient Disposition: Admit to [facility] Condition: Fair Discharge Details Clinical Impression: Fracture of left sixth rib, Fracture of left seventh rib, Fracture of right sixth rib Primary Care Provider: Jose Ramos ED Provider: Paulie Benítez Home Meds and New Rx's Prescriptions: No Action atorvastatin 40 mg tablet 40 mg PO DAILY Qty: 90 3RF doxycycline hyclate 100 mg capsule 100 mg PO BID Qty: 14 0RF Rx Instructions: Avoid sun exposure. Take with meal. Take 1 pill every 12 hours x 7 days multivitamin [Multi-Day] 1 EACH tablet 1 ea PO DAILY calcium carbonate-vitamin D3 1 EACH tablet 1 ea PO DAILY VITAMIN B COMPLEX 1 EACH tablet 1 ea PO DAILY Cane Qty: 1 0RF Rx Instructions: Please use cane for ambulation support and gait training due to weakness following total knee replacement. trazodone 50 mg tablet 50 - 100 mg PO QHS PRN (Reason: sleep) Qty: 180 3RF zoledronic [id number] [Reclast] 5 mg/100 mL piggyback See Rx Instructions IV ONCE Rx Instructions: 100 ml intravenously once; administer over at least 15 mins pantoprazole 40 mg tablet,delayed release (DR/EC) 40 mg PO DAILY Qty: 90 3RF paroxetine HCl 40 mg tablet 40 mg PO DAILY Qty: 90 3RF ascorbic acid (vitamin C) [Vitamin C] 1,000 mg Tablet 1,000 mg PO PRN PRN acetaminophen 500 mg tablet 1,000 mg PO TID Qty: 90 3RF lidocaine [Lidoderm] 5 % adhesive patch,medicated 1 patch Topical Q24H Qty: 15 0RF HPI General Date/Time Provider Initiated Documentation: 03/15/25 13:16. HPI Narrative: MDM/Narrative: 74-year-old female [place] presents for continued pain following traumatic fractures of her left 7th and 6th rib as well as right sixth rib patient hemodynamically stable however pain is not controlled at home. Assessment and plan: Thoracic trauma: Reviewed CTs performed yesterday no evidence of acute bleeding. Given presence of multiple rib fractures will repeat chest x-ray to ensure that no interval hemopneumothorax is developed. Pain: Will attempt to control pain with parenteral anti-inflammatories as well as opioids given patient's. Failure of outpatient therapy will plan to admit patient ED course: [address] Gant who is in agreement with plan for admission for pain control. Disposition: Admit to [facility] HPI: 74-year-old female presents for evaluation of rib pain. Patient was evaluated emergency department yesterday, diagnosed with a left 6th and 7th rib fractures as well as right 6 sided rib fractures after sustaining a ground-level fall. She notes that she was discharged home with Tylenol and Lidoderm patches and instructed return should pain worsen. As per her family, she was unable to sleep last night due to her pain, and they note that she is having difficulty taking full breaths due to pain. Denies any associated fever, chills, cough, vomiting, or any other new or concerning symptoms ROS: Negative besides as mentioned above Exam: Gen: A&O NAD HEENT: NCAT, EOMI, not icteric. External ears normal. No rhinorrhea. Moist mucous membranes. Neck: Supple, full range of motion, no observable masses, No meningeal sign. Lungs: No Respiratory distress. CV: RRR, no edema. Abdomen: Soft, nondistended, No rebound tenderness. MSK: No joint swelling, no redness. Skin: No rashes, petechiae, lesions. Normal color per patient. Neuro: Normal Gait, Grossly intact. Psych: Appropriate for situation. Labs: Laboratory Tests Range/Units 03/15/25 14:08 WBC (4.4-10.8) 10^3/uL 9.04 RBC (3.93-5.22) 10^6/uL 4.00 Hgb (11.2-15.7) g/dL 11.8 Hct (36.0-46.0) % 35.3 L MCV (80-95) fL 88 MCH (27.0-33.0) pg 29.5 MCHC (32.0-36.0) % 33.4 RDW (11.7-14.6) % 11.8 Plt Count (130-400) 10^3/uL 186 MPV (8.0-11.0) fL 9.1 Immature Gran % % 0.3 Neutrophils % % 69.9 Lymphocytes % % 14.6 Monocytes % % 14.5 Eosinophils % % 0.6 Basophils % % 0.1 Nucleated RBC % (0.0-0.3) % 0.0 Absolute Neutrophils (1.2-6.7) 10^3/uL 6.32 Absolute Lymphocytes (1.2-3.4) 10^3/uL 1.32 Absolute Monocytes (0.1-0.8) 10^3/uL 1.31 H Absolute Eosinophils (0.0-0.7) 10^3/uL 0.05 Absolute Basophils (0.0-0.2) 10^3/uL 0.01 Sodium (136-145) mmol/L 141 Potassium (3.5-5.1) mmol/L 4.0 Chloride (98-107) mmol/L 105 Carbon Dioxide (21.0-32.0) mmol/L 29.5 Anion Gap (3-11) mmol/L 6.5 BUN (7-18) mg/dL 18 Creatinine (0.55-1.02) mg/dL 0.8 Est GFR (CKD-EPI 2020) (mL/min/1.73m2) 76.31 Glucose (74-106) mg/dL 89 Calcium (8.5-10.1) mg/dL 8.9 Total Bilirubin (0.2-1.0) mg/dL 0.8 AST (15-37) U/L 35 ALT (14-59) U/L 30 Alkaline Phosphatase (46-116) U/L 47 Total Protein (6.4-8.2) g/dL 6.1 L Albumin (3.4-5.0) g/dL 3.5 Radiology: Exam(s) XR PORTABLE CHEST AP EXAM: XR PORTABLE CHEST AP CLINICAL HISTORY: chest pain TECHNIQUE: 2D digital imaging was performed. COMPARISON: CT CT CHEST/ABD/PEL W from 03/14/2025 FINDINGS: LUNGS: Clear. No pleural abnormality seen. HEART: Normal size. AORTA: Tortuous. BONES: Unremarkable for age. Soft tissues: Unremarkable. IMPRESSION: No acute findings. DATA REPOSITORY: RADIATION DOSE DELIVERED: Related Data Home Medications ?Medication ?Instructions ?Recorded ?Confirmed calcium 600 mg (as 1 ea PO DAILY 10/10/12 11/22/24 carbonate)-vitamin D3 5 mcg (200 unit) tablet multivitamin (Multi-Day tablet) 1 ea PO DAILY 10/10/12 11/22/24 Vitamin B Complex 1 ea PO DAILY 04/26/13 11/22/24 ascorbic acid (vitamin C) 1,000 mg 1,000 mg PO PRN PRN 07/23/19 11/22/24 tablet (Vitamin C) acetaminophen 500 mg tablet 1,000 mg (2 x 500 mg) PO TID #90 12/03/23 11/19/24 tabs atorvastatin 40 mg tablet 40 mg PO DAILY #90 tabs 04/01/24 11/22/24 trazodone 50 mg tablet 50 - 100 mg (1 - 2 x 50 mg) PO QHS 06/21/24 11/19/24 PRN sleep #180 tabs zoledronic acid 5 mg/100 mL in See Rx Instructions IV ONCE 11/12/24 mannitol 5 %-water intravenous piggybck (Reclast) pantoprazole 40 mg tablet,delayed 40 mg PO DAILY #90 tabs 12/13/24 release paroxetine HCl 40 mg tablet 40 mg PO DAILY #90 tabs 12/13/24 doxycycline hyclate 100 mg capsule 100 mg PO BID #14 caps 12/21/24 12/21/24 lidocaine 5 % topical patch 1 patch topical Q24H #15 ea 03/15/25 (Lidoderm) Previous Rx's ?Medication ?Instructions ?Recorded acetaminophen 500 mg tablet 1,000 mg (2 x 500 mg) PO TID #90 12/03/23 tabs atorvastatin 40 mg tablet 40 mg PO DAILY #90 tabs 04/01/24 trazodone 50 mg tablet 50 - 100 mg (1 - 2 x 50 mg) PO QHS 06/21/24 PRN sleep #180 tabs zoledronic acid 5 mg/100 mL in See Rx Instructions IV ONCE 11/12/24 mannitol 5 %-water intravenous piggybck (Reclast) pantoprazole 40 mg tablet,delayed 40 mg PO DAILY #90 tabs 12/13/24 release paroxetine HCl 40 mg tablet 40 mg PO DAILY #90 tabs 12/13/24 doxycycline hyclate 100 mg capsule 100 mg PO BID #14 caps 12/21/24 lidocaine 5 % topical patch 1 patch topical Q24H #15 ea 03/15/25 (Lidoderm) Allergies Allergy/AdvReac Type Severity Reaction Status Date / Time amoxicillin trihydrate (From AdvReac Severe DIARRHEA Verified 12/21/24 14:51 Augmentin) morphine AdvReac Severe HEART Verified 12/21/24 14:51 PALPITATIONS amoxicillin (From Augmentin) AdvReac Intermediate diarrhea Verified 12/21/24 14:51 clavulanic acid (From AdvReac Intermediate diarrhea Verified 12/21/24 14:51 Augmentin) Sulfa (Sulfonamide AdvReac Mild PRURITIS Verified 12/21/24 14:51 Antibiotics) General Stated Complaint: Chest/Rib DUSTY: 3 Course Vital Signs Vital signs: Vital Signs Temperature 36.9 C 03/15/25 13:27 Pulse 68 03/15/25 13:27 Respiratory Rate 20 03/15/25 13:27 Blood Pressure 117/79 03/15/25 13:27 Pulse Oximetry 94 03/15/25 13:27 Temperature 36.9 C 03/15/25 13:27 Temperature Source Temporal Artery Scan 03/15/25 13:27 Pulse 68 03/15/25 13:27 Respiratory Rate 20 03/15/25 13:27 Blood Pressure 117/79 03/15/25 13:27 Blood Pressure Position Sitting 03/15/25 13:27 Pulse Oximetry 94 03/15/25 13:27 Oxygen Delivery Method Room Air 03/15/25 13:27 Oxygen Flow Rate 0 03/15/25 13:27 Pain Level 8 03/15/25 14:15 Lab/Test Results Lab/Test Results: Laboratory Tests Range/Units 03/15/25 14:08 WBC (4.4-10.8) 10^3/uL 9.04 RBC (3.93-5.22) 10^6/uL 4.00 Hgb (11.2-15.7) g/dL 11.8 Hct (36.0-46.0) % 35.3 L MCV (80-95) fL 88 MCH (27.0-33.0) pg 29.5 MCHC (32.0-36.0) % 33.4 RDW (11.7-14.6) % 11.8 Plt Count (130-400) 10^3/uL 186 MPV (8.0-11.0) fL 9.1 Immature Gran % % 0.3 Neutrophils % % 69.9 Lymphocytes % % 14.6 Monocytes % % 14.5 Eosinophils % % 0.6 Basophils % % 0.1 Nucleated RBC % (0.0-0.3) % 0.0 Absolute Neutrophils (1.2-6.7) 10^3/uL 6.32 Absolute Lymphocytes (1.2-3.4) 10^3/uL 1.32 Absolute Monocytes (0.1-0.8) 10^3/uL 1.31 H Absolute Eosinophils (0.0-0.7) 10^3/uL 0.05 Absolute Basophils (0.0-0.2) 10^3/uL 0.01 Sodium (136-145) mmol/L 141 Potassium (3.5-5.1) mmol/L 4.0 Chloride (98-107) mmol/L 105 Carbon Dioxide (21.0-32.0) mmol/L 29.5 Anion Gap (3-11) mmol/L 6.5 BUN (7-18) mg/dL 18 Creatinine (0.55-1.02) mg/dL 0.8 Est GFR (CKD-EPI 2020) (mL/min/1.73m2) 76.31 Glucose (74-106) mg/dL 89 Calcium (8.5-10.1) mg/dL 8.9 Total Bilirubin (0.2-1.0) mg/dL 0.8 AST (15-37) U/L 35 ALT (14-59) U/L 30 Alkaline Phosphatase (46-116) U/L 47 Total Protein (6.4-8.2) g/dL 6.1 L Albumin (3.4-5.0) g/dL 3.5 PFSH All Active Problems (Updated 03/15/25 @ 15:31 by Paulie Benítez MD) Fracture of right sixth rib (Acute) Fracture of left seventh rib (Acute) Fracture of left sixth rib (Acute) Encounter for screening colonoscopy (Acute) Right knee injury (Acute ~08/16/24) Fracture of right distal radius (Acute 11/30/23) S/P ORIF: 12/03/2023 Corns and callosities (Acute) Nail dystrophy (Acute) Cramping of feet (Acute) 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) Right PIP joint injection ~20 mg Depo Medrol: 04/28/23 Generalized anxiety disorder (Chronic) Major depressive disorder, recurrent (Chronic) JESSICA (obstructive sleep apnea) (Chronic) No CPAP GERD (gastroesophageal reflux disease) (Chronic) Bilateral ovarian cysts (Chronic) Sigmoid diverticulosis (Chronic) Osteoarthritis of hands, bilateral (Chronic) Chronic right-sided low back pain without sciatica (Chronic) Osteoporosis (Chronic) Dysphagia (Chronic) Insomnia (Chronic) Hyperlipidemia (Chronic) Allergic rhinitis (Chronic) Medical History Right leg DVT (~2017) CVA (cerebral vascular accident) (~2014) Per pt. states residual deficiets Surgical History History of surgery on wrist S/P medial meniscus repair of left knee (07/13/19) History of colonoscopy (~11/2024) biopsies taken History of esophagogastroduodenoscopy (EGD) (~03/2021) History of total right knee replacement (TKR) (07/08/17) History of total left knee replacement (03/27/21) Status post foot surgery Status post repair of paraesophageal diaphragmatic hernia Status post vaginal hysterectomy History of appendectomy (~2009) Family History Mother , at 55 from [place] Heart disease COPD (chronic obstructive pulmonary disease) Myocardial infarction Father , Suicide at 50 Alcohol use disorder Sister COPD (chronic obstructive pulmonary disease) Sister COPD (chronic obstructive pulmonary disease) Heart disease Sister No problems noted. Sister No problems noted. Sister Alcohol use disorder Sister No problems noted. Brother Myocardial infarction Heart disease Brother No problems noted. Brother Alcohol use disorder Leukemia Son Congenital heart defect Son Hypertension Maternal Grandfather , 40s Heart disease Maternal Grandmother , 40s Heart disease Paternal Grandfather , 89 Alcohol use disorder Paternal Grandmother , from eclampsia No problems noted. Social History Smoking/Tobacco Use Status: Never Smoking risk assessment performed?: Yes Alcohol Intake: never Drug use: Never Substance use type: does not use Counseling given: No Caregiver/Support person: No Household members: spouse Housing: house Do you need help understanding health information?: Rarely Pets and animals: No Sexually active: No Do you think of yourself as: straight/heterosexual Current gender identity: female What is your relationship status?: How often do you talk on the phone with friends or family?: three or more times per week How often do you attend restorationist or orthodox services?: 1-3 times per year Do you belong to any clubs or organized social groups?: no Panel score (0-1 are the most socially isolated patients): 2 Frequency: 1-2 times per week Crystal/Congregational: [employer] Seatbelt use: always Drive intox or ride w/intox driver license reviewing officer: No Do you feel safe at home: Yes Do you feel safe in your relationship?: Yes
--- NOTE | 2025-03-15 16:15 | W.PM.HP.N ---
Date of service: 03/15/25 Time of Service: 16:15 Assessment and Plan Assessment and plan (1) Ribs, multiple fractures: Status: Acute Assessment and plan: Although subtle, there are clearly fractures on both the right and left side valving multiple ribs. The most significant was the right sixth rib, which has some mild displacement. There is no associated pneumothorax, and the chest x-ray today is overall reassuring. I do think she would benefit from more aggressive pain control, however. Certainly, her age and comorbidities puts her at significant risk of complications of her rib fractures. Will admit today for continuous oximetry, and attempt topical therapies with lidocaine in addition to intravenous acetaminophen, and low-dose opioids. It seems like she has had a favorable response to ketorolac as well, so we can continue that for some time. History of Present Illness History of Present Illness Chief Complaint: chest pain Narrative: Laura is 74 years old. She had a standing level fall last night after she felt like her leg gave out, and then slipped off a wheelchair ramp approximately 4 feet to the ground. She was brought to the emergency department. She complained of pain around her ribs, and underwent CT imaging of the head, neck, chest abdomen and pelvis. Preliminary report suggested 2 right-sided, and 1 left-sided rib fractures. She also had evidence of a T11 superior endplate fracture although the acuity of that is little unclear. She was treated with a multimodal strategy for pain control, and discharged home with follow-up instructions. After she got home, she had quite a bit of difficulty sleeping through the night because of pain. This was associated with different positions, and deep breathing. She came back to the emergency department because the pain was poorly managed. Otherwise, there were no other significant events since her evaluation last night. Review of Systems Constitutional Constitutional: Reports difficulty sleeping, Reports fatigue, Denies poor appetite and Reports weakness Eyes Eyes: Reports system reviewed and no additional complaints, except as documented ENT Ears, Nose, Mouth, and Throat: Reports system reviewed and no additional complaints, except as documented and Reports disequilibrium Cardiovascular Cardiovascular: Reports chest pain, Denies lightheadedness and Reports dyspnea on exertion Respiratory Respiratory: Denies chest congestion, Denies cough, Reports pain on inspiration and Reports dyspnea on exertion Gastrointestinal Gastrointestinal: Reports system reviewed and no additional complaints, except as documented Genitourinary Genitourinary: Reports system reviewed and no additional complaints, except as documented Musculoskeletal Musculoskeletal: Reports back pain Neurologic Neurologic: Reports disequilibrium and Reports weakness Psychiatric Psychiatric: Reports system reviewed and no additional complaints, except as documented Endocrine Endocrine: Reports fatigue Hematologic/Lymphatic Hematologic/Lymphatic: Denies easy bleeding and Denies easy bruising PFSH All Active Problems (Updated 03/15/25 @ 16:25 by Julius Gant MD) Ribs, multiple fractures (Acute) Fracture of right sixth rib (Acute) Fracture of left seventh rib (Acute) Fracture of left sixth rib (Acute) Encounter for screening colonoscopy (Acute) Right knee injury (Acute ~08/16/24) Fracture of right distal radius (Acute 11/30/23) S/P ORIF: 12/03/2023 Corns and callosities (Acute) Nail dystrophy (Acute) Cramping of feet (Acute) 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) Right PIP joint injection ~20 mg Depo Medrol: 04/28/23 Generalized anxiety disorder (Chronic) Major depressive disorder, recurrent (Chronic) JESSICA (obstructive sleep apnea) (Chronic) No CPAP GERD (gastroesophageal reflux disease) (Chronic) Bilateral ovarian cysts (Chronic) Sigmoid diverticulosis (Chronic) Osteoarthritis of hands, bilateral (Chronic) Chronic right-sided low back pain without sciatica (Chronic) Osteoporosis (Chronic) Dysphagia (Chronic) Insomnia (Chronic) Hyperlipidemia (Chronic) Allergic rhinitis (Chronic) Medical History Right leg DVT (~2017) CVA (cerebral vascular accident) (~2014) Per pt. states residual deficiets Surgical History History of surgery on wrist S/P medial meniscus repair of left knee (07/13/19) History of colonoscopy (~11/2024) biopsies taken History of esophagogastroduodenoscopy (EGD) (~03/2021) History of total right knee replacement (TKR) (07/08/17) History of total left knee replacement (03/27/21) Status post foot surgery Status post repair of paraesophageal diaphragmatic hernia Status post vaginal hysterectomy History of appendectomy (~2009) Family History Mother , at 55 from [place] Heart disease COPD (chronic obstructive pulmonary disease) Myocardial infarction Father , Suicide at 50 Alcohol use disorder Sister COPD (chronic obstructive pulmonary disease) Sister COPD (chronic obstructive pulmonary disease) Heart disease Sister No problems noted. Sister No problems noted. Sister Alcohol use disorder Sister No problems noted. Brother Myocardial infarction Heart disease Brother No problems noted. Brother Alcohol use disorder Leukemia Son Congenital heart defect Son Hypertension Maternal Grandfather , 40s Heart disease Maternal Grandmother , 40s Heart disease Paternal Grandfather , 89 Alcohol use disorder Paternal Grandmother , from eclampsia No problems noted. Social History Smoking/Tobacco Use Status: Never Smoking risk assessment performed?: Yes Alcohol Intake: never Drug use: Never Substance use type: does not use Counseling given: No Caregiver/Support person: No Household members: spouse Housing: house Do you need help understanding health information?: Rarely Pets and animals: No Sexually active: No Do you think of yourself as: straight/heterosexual Current gender identity: female What is your relationship status?: How often do you talk on the phone with friends or family?: three or more times per week How often do you attend uatsdin or mosque services?: 1-3 times per year Do you belong to any clubs or organized social groups?: no Panel score (0-1 are the most socially isolated patients): 2 Frequency: 1-2 times per week Crystal/Alevism: Shinto Seatbelt use: always Drive intox or ride w/intox school bus driver/custodian: No Do you feel safe at home: Yes Do you feel safe in your relationship?: Yes Meds Allergies and Home Medications Allergies Allergy/AdvReac Type Severity Reaction Status Date / Time amoxicillin trihydrate (From AdvReac Severe DIARRHEA Verified 12/21/24 14:51 Augmentin) morphine AdvReac Severe HEART Verified 12/21/24 14:51 PALPITATIONS amoxicillin (From Augmentin) AdvReac Intermediate diarrhea Verified 12/21/24 14:51 clavulanic acid (From AdvReac Intermediate diarrhea Verified 12/21/24 14:51 Augmentin) Sulfa (Sulfonamide AdvReac Mild PRURITIS Verified 12/21/24 14:51 Antibiotics) Home Medications ?Medication ?Instructions ?Recorded ?Confirmed ?Type calcium 600 mg (as 1 ea PO DAILY 10/10/12 03/15/25 History carbonate)-vitamin D3 5 mcg (200 unit) tablet multivitamin (Multi-Day tablet) 1 ea PO DAILY 10/10/12 03/15/25 History Vitamin B Complex 1 ea PO DAILY 04/26/13 03/15/25 History Cancarole u ##1 09/29/17 02/15/19 Clinic ascorbic acid (vitamin C) 1,000 mg 1,000 mg PO PRN PRN 07/23/19 03/15/25 History tablet (Vitamin C) acetaminophen 500 mg tablet 1,000 mg (2 x 500 mg) PO TID #90 12/03/23 03/15/25 Rx tabs atorvastatin 40 mg tablet 40 mg PO DAILY #90 tabs 04/01/24 03/15/25 Rx trazodone 50 mg tablet 50 - 100 mg (1 - 2 x 50 mg) PO QHS 06/21/24 03/15/25 Rx PRN sleep #180 tabs zoledronic acid 5 mg/100 mL in See Rx Instructions IV ONCE 11/12/24 Rx mannitol 5 %-water intravenous piggybck (Reclast) pantoprazole 40 mg tablet,delayed 40 mg PO DAILY #90 tabs 12/13/24 03/15/25 Rx release paroxetine HCl 40 mg tablet 40 mg PO DAILY #90 tabs 12/13/24 03/15/25 Rx doxycycline hyclate 100 mg capsule 100 mg PO BID #14 caps 12/21/24 12/21/24 Rx lidocaine 5 % topical patch 1 patch topical Q24H #15 ea 03/15/25 03/15/25 Rx (Lidoderm) Exam Const General: cooperative and no acute distress [facility] Head: normal to inspection Eyes General: appearance normal, both eyes and all related structures Neck Neck: normal visual inspection, full ROM, trachea midline, supple and no tracheal deviation Chest Chest: normal inspection of the chest, no crepitus and tenderness (Bilateral flanks) Resp Effort & Inspection: normal respiratory effort, able to speak in complete sentences, no respiratory distress, no segmental paradox chest wall movement and no tracheal deviation Auscultation: clear to auscultation bilaterally Percussion: percussion normal Cardio Rate: regular rate Rhythm: regular rhythm GI Inspection: normal to inspection Skin General skin exam: no rashes or lesions noted Extrem General: normal to inspection and full ROM Results Imaging Chest x-ray: report reviewed and image reviewed CT scan - chest: report reviewed and image reviewed Labs 03/15/25 14:08 03/15/25 14:08 Labs: Laboratory Results - last 24 hr 03/15/25 14:08 WBC 9.04 RBC 4.00 Hgb 11.8 Hct 35.3 L MCV 88 MCH 29.5 MCHC 33.4 RDW 11.8 Plt Count 186 MPV 9.1 Immature Gran % 0.3 Neutrophils % 69.9 Lymphocytes % 14.6 Monocytes % 14.5 Eosinophils % 0.6 Basophils % 0.1 Nucleated RBC % 0.0 Absolute Neutrophils 6.32 Absolute Lymphocytes 1.32 Absolute Monocytes 1.31 H Absolute Eosinophils 0.05 Absolute Basophils 0.01 Sodium 141 Potassium 4.0 Chloride 105 Carbon Dioxide 29.5 Anion Gap 6.5 BUN 18 Creatinine 0.8 Est GFR (CKD-EPI 2020) 76.31 Glucose 89 Calcium 8.9 Total Bilirubin 0.8 AST 35 ALT 30 Alkaline Phosphatase 47 Total Protein 6.1 L Albumin 3.5 Last Vital Signs Temp 97.3 F L 03/15/25 15:58 Pulse 73 03/15/25 15:58 Resp 16 03/15/25 15:58 BP 119/64 03/15/25 15:58 Pulse Ox 96 03/15/25 15:58 Time Spent Time spent with Patient: 40-54 minutes Time was spent: preparing to see the patient(eg.review tests), obtaining and/or reviewing separately otained hiistory, ordering medications,tests, procedures, referring, communicating with other health animal care provider and indepentently interpreting results
--- NOTE | 2025-03-15 16:35 | W.PC.ACHO ---
Registration Status: ADM IN Primary Language: Preferred Language: Wolof ED Information & Data Chief Complaint Chest/Rib 03/15/25 15:39 Chief Complaint Chest/Rib 03/15/25 15:31 Other Complaint Recheck 03/15/25 13:27 Triage Note Pt seen in ED s/p earlier 03/15/25 13:27 today. Known fx 3 ribs. Pain increased- sent to ED for ' nerve block'. Discoloration left posterior upper back, pain left lower ribs consistent with reported fx. Medical / Surgical History (Last Reviewed 12/21/24 @ 15:22 by Rachele Melgoza NP) Right leg DVT (~2017) CVA (cerebral vascular accident) (~2014) (Last Reviewed 12/21/24 @ 15:22 by Rachele Melgoza NP) History of surgery on wrist S/P medial meniscus repair of left knee (07/13/19) History of colonoscopy (~11/2024) History of esophagogastroduodenoscopy (EGD) (~03/2021) History of total right knee replacement (TKR) (07/08/17) History of total left knee replacement (03/27/21) Status post foot surgery Status post repair of paraesophageal diaphragmatic hernia Status post vaginal hysterectomy History of appendectomy (~2009) Most Recent Vital Signs Temperature 36.3 C L 03/15/25 16:04 Temperature Source Temporal Artery Scan 03/15/25 15:58 Pulse 73 03/15/25 16:04 Pulse 73 03/15/25 15:40 Respiratory Rate 16 03/15/25 16:04 Respiratory Effort Normal 03/15/25 16:04 Respiratory Depth Shallow 03/15/25 16:04 Respiratory Pattern Normal 03/15/25 16:04 Blood Pressure 119/64 03/15/25 15:58 Blood Pressure Mean 82 03/15/25 15:58 Blood Pressure Position Sitting 03/15/25 13:27 Pulse Oximetry 96 03/15/25 16:04 Oxygen Delivery Method Nasal Cannula 03/15/25 16:04 Oxygen Flow Rate 2 03/15/25 16:04 Pain Level 0 03/15/25 16:04 Allergies amoxicillin trihydrate (From Augmentin) Adverse Reaction (Severe, Verified 12/21/24 14:51) DIARRHEA morphine Adverse Reaction (Severe, Verified 12/21/24 14:51) HEART PALPITATIONS amoxicillin (From Augmentin) Adverse Reaction (Intermediate, Verified 12/21/24 14:51) diarrhea clavulanic acid (From Augmentin) Adverse Reaction (Intermediate, Verified 12/21/24 14:51) diarrhea Sulfa (Sulfonamide Antibiotics) Adverse Reaction (Mild, Verified 12/21/24 14:51) PRURITIS IV IV Catheter Type [Right Saline Lock Antecubital] IV Catheter Gauge [Right 20 Antecubital] Diet Orders Category Date Time Status Regular/Normal [DIET] Nutrition 03/15/25 Dinner Active Diagnostics 03/15/25 Range/Units 14:08 WBC 9.04 (4.4-10.8) 10^3/uL RBC 4.00 (3.93-5.22) 10^6/uL Hgb 11.8 (11.2-15.7) g/dL Hct 35.3 L (36.0-46.0) % MCV 88 (80-95) fL MCH 29.5 (27.0-33.0) pg MCHC 33.4 (32.0-36.0) % RDW 11.8 (11.7-14.6) % Plt Count 186 (130-400) 10^3/uL MPV 9.1 (8.0-11.0) fL Immature Gran % 0.3 % Neutrophils % 69.9 % Lymphocytes % 14.6 % Monocytes % 14.5 % Eosinophils % 0.6 % Basophils % 0.1 % Nucleated RBC % 0.0 (0.0-0.3) % Absolute Neutrophils 6.32 (1.2-6.7) 10^3/uL Absolute Lymphocytes 1.32 (1.2-3.4) 10^3/uL Absolute Monocytes 1.31 H (0.1-0.8) 10^3/uL Absolute Eosinophils 0.05 (0.0-0.7) 10^3/uL Absolute Basophils 0.01 (0.0-0.2) 10^3/uL Sodium 141 (136-145) mmol/L Potassium 4.0 (3.5-5.1) mmol/L Chloride 105 (98-107) mmol/L Carbon Dioxide 29.5 (21.0-32.0) mmol/L Anion Gap 6.5 (3-11) mmol/L BUN 18 (7-18) mg/dL Creatinine 0.8 (0.55-1.02) mg/dL Est GFR (CKD-EPI 2020) 76.31 (mL/min/1.73m2) Glucose 89 (74-106) mg/dL Calcium 8.9 (8.5-10.1) mg/dL Total Bilirubin 0.8 (0.2-1.0) mg/dL AST 35 (15-37) U/L ALT 30 (14-59) U/L Alkaline Phosphatase 47 (46-116) U/L Total Protein 6.1 L (6.4-8.2) g/dL Albumin 3.5 (3.4-5.0) g/dL ABO/Rh Pending Antibody Screen Pending Intake and Output - 24 Hour Total 03/15/25 13:13 thru 03/15/25 16:04 Weight 73.1 kg Other: Urine Appearance Clear Falls Risk Assessment History of Falls Admit Due to Fall 03/15/25 16:04 Contributing Factors No Factors 03/15/25 16:04 Ambulatory Aids Independent 03/15/25 16:04 Tubes/Lines None 03/15/25 16:04 Gait Evaluation No gait disturbance 03/15/25 16:04 Cognition No cognitive impairment 03/15/25 16:04 Fall Total Score 25 03/15/25 16:04 Level of Risk Moderate Risk 03/15/25 16:04 Problems (Last Reviewed 12/21/24 @ 15:22 by Rachele Melgoza NP) Ribs, multiple fractures (Acute) Fracture of right sixth rib (Acute) Fracture of left seventh rib (Acute) Fracture of left sixth rib (Acute) v v v v v v v v v Sending and/or Receiving Nurses: Please use comment section below to note any information pertinent to the patient hand-off not included above. Information / Comments: Pt fell 4 feet off wheelchair ramp onto ground, rib fx, seen in ed overnight and discharged, returned to ED today for pain control. Pt alert, oriented, verbal, no pain at present after IV dilaudid received in ED, pain 0 at present, on 2L for low spo2 after medication, no home 02. Report received from: ALMAS Gould
[2025-03-15] MEDS: ACETAMINOPHEN 1,000 MG/100 ML BAG 400 MG IVPB (16:46)
[2025-03-15] MEDS: Heparin 5,000 UNITS/ML VIAL 5000 UNITS SC (16:46)
[2025-03-15] MEDS: Normal Saline Flush 10 ML SYR IVP (19:54)
[2025-03-15] MEDS: Lidocaine Patch Removal 1 EACH TP (20:33)
[2025-03-16] MEDS: ACETAMINOPHEN 1,000 MG/100 ML BAG 400 MG IVPB ×2 (00:38→08:11)
[2025-03-16] MEDS: Normal Saline Flush 10 ML SYR IVP ×2 (02:22→08:13)
[2025-03-16] MEDS: Ketorolac 15 MG/ML VIAL IVP ×2 (02:23→08:13)
[2025-03-16 07:27] VITALS: BP 116/71; PULSE 71; RESP 16; TEMP 36; O2SAT 98
[2025-03-16] MEDS: Lidocaine 5% Patch 1 PATCH TP (08:11)
[2025-03-16] MEDS: PARoxetine 20 MG TAB 40 MG PO (08:12)
[2025-03-16] MEDS: Calcium 600mg/Vit D 200U TAB 1 TAB PO (08:12)
[2025-03-16] MEDS: Atorvastatin 40 MG TAB PO (08:12)
[2025-03-16] MEDS: Vitamins B Comp w/C TAB 1 TAB PO (08:12)
[2025-03-16] MEDS: Heparin 5,000 UNITS/ML VIAL 5000 UNITS SC (08:12)
[2025-03-16] MEDS: Multivitamin TAB 1 TAB PO (08:12)
[2025-03-16] MEDS: Pantoprazole 40 MG TABCR PO (08:12)
[2025-03-16 08:31] VITALS: O2SAT 98
--- NOTE | 2025-03-16 08:50 | W.PM.PROGNOT ---
Date of Service Date of service: 03/16/25 Time of Service: 08:50 Assessment and Plan Assessment and plan (1) Ribs, multiple fractures: Status: Acute Assessment and plan: Oxygenation has been good over night. Pain control is improving. Encouraged her to ambulate and sit in the chair this morning. To ensure independence with activities upon d/c home. Subjective Subjective Interval history since last seen: Arrived with Laura resting in bed, eating breakfast. She describes her pain and ability to breath more comfortably today. She states that her pain is mostly around/under her left breast. Exam Const General: cooperative, healthy appearing and comfortable Orientation: alert and oriented x3 Resp Effort & Inspection: normal respiratory effort, no audible wheezes and no cough Other: Supplemental 02 SPO2 97% Objective Last Vital Signs Temp 36 C L 03/16/25 07:27 Pulse 71 03/16/25 07:27 Resp 16 03/16/25 07:27 BP 116/71 03/16/25 07:27 Pulse Ox 98 03/16/25 08:31 Laboratory Results - last 24 hr 03/15/25 14:08 WBC 9.04 RBC 4.00 Hgb 11.8 Hct 35.3 L MCV 88 MCH 29.5 MCHC 33.4 RDW 11.8 Plt Count 186 MPV 9.1 Immature Gran % 0.3 Neutrophils % 69.9 Lymphocytes % 14.6 Monocytes % 14.5 Eosinophils % 0.6 Basophils % 0.1 Nucleated RBC % 0.0 Absolute Neutrophils 6.32 Absolute Lymphocytes 1.32 Absolute Monocytes 1.31 H Absolute Eosinophils 0.05 Absolute Basophils 0.01 Sodium 141 Potassium 4.0 Chloride 105 Carbon Dioxide 29.5 Anion Gap 6.5 BUN 18 Creatinine 0.8 Est GFR (CKD-EPI 2020) 76.31 Glucose 89 Calcium 8.9 Total Bilirubin 0.8 AST 35 ALT 30 Alkaline Phosphatase 47 Total Protein 6.1 L Albumin 3.5 ABO/Rh A Positive Antibody Screen NEGATIVE Time Spent with Patient Time Spent with Patient: <25 minutes Time was spent: preparing to see the patient(eg.review tests) and counseling the patient
--- NOTE | 2025-03-16 09:35 | PDOC.CMIN ---
Date of service: 03/16/25 Time of Service: 09:35 Care Management Initial Assmt Initial Assessment Reason for Hospitalization: rib fractures - left 6th rib, left 7th rib and right 6th rib Functional Status/Living Situation Patient Presentation: Laura presented to the ER yesterday afternoon with continued c/o rib pain. She was seen in the ER the day prior, after sustaining a fall. She was discharged home at that time with Tylenol and Lidoderm patches, but returned because her pain was not controlled. Laura was up in the chair this afternoon, visiting with her granddaughter, when CM met with her today. Both ladies were very pleasant. Laura stated that she is feeling a lot better. Her pain is under control, and she stated that she would do better at home. She has been cleared for discharge by the surgeon. She will have a prescription for pain control, and has both a PCP f/u and surgical f/u scheduled. Town of Residence: [place] Resides with: Alone Significant Other/Family: Local (Surrounded by close family and friends. 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) Instrumental Activities of Daily Living (ADLs): Independent Medications Medication Management: No Issues/Barriers identified Advance Directives Advance Directives: Do you have an Advance Directive: N 03/24/23, 15:56 AD On File at [facility]: N 03/24/23, 15:56 Date Asked 03/15/25 Today, 08:09 AD Date Reviewed COLST On File at [facility] COLST Date Scanned Code Status Resuscitation Status Full Code Insurance Coverage/Financial Issues Insurance: [employer] Medicare Replacement Care Team Visit Care Team Role Provider Type Jose Ramos MD Primary Care Provider [facility] STAFF PHYSICIAN InPatient Steven Moss Other Providers OTHER Paulie Benítez MD Emergency Provider [facility] STAFF PHYSICIAN Julius Gant MD Admit Provider [facility] STAFF PHYSICIAN Attending Provider Discharge Plan: Laura will be discharged this afternoon, when her family can come to pick her up. She is discharging with no new services. She will f/u at her PCP office on Friday, 03/21 at 11;20, and continue per her plan of care. She also has as surgical f/u on 03/31. Social Determinants of Health Screening Social Determinants of health last assessed in clinic: 03/16/25 Will the Patient Participate in the Screening?: Yes Do you worry about having a steady place to live?: no Problems where you live: no known problems In the past 12 months, have you had to go without electric, gas, oil or water in your home?: no 1. Within the past 12 months, we worried whether our food would run out before we got money to buy more.: Never true 2. Within the past 12 months, the food we bought just didn't last and we didn't have money to get more.: Never true Has lack of transportation kept you from medical appointments or from doing things needed for daily living?: no Has anyone in your life made you feel unsafe or unsupported?: no How hard is it for you to pay for the very basics like food, housing, medical care, and heating? Would you say it is:: Not hard at all Do you want help finding or keeping work or a job?: I do not need or want help If for any reason you need help with day-to-day activities such as bathing, preparing meals, shopping, managing finances, etc., do you get the help you need?: I don?t need any help How often do you feel lonely or isolated from those around you?: Never Do you speak a language other than Swedish at home?: No Does the patient want assistance with any of the above?: No 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) Right PIP joint injection ~20 mg Depo Medrol: 04/28/23 Generalized anxiety disorder (Chronic) Major depressive disorder, recurrent (Chronic) JESSICA (obstructive sleep apnea) (Chronic) No CPAP GERD (gastroesophageal reflux disease) (Chronic) Bilateral ovarian cysts (Chronic) Sigmoid diverticulosis (Chronic) Osteoarthritis of hands, bilateral (Chronic) Chronic right-sided low back pain without sciatica (Chronic) Osteoporosis (Chronic) Dysphagia (Chronic) Insomnia (Chronic) Hyperlipidemia (Chronic) Allergic rhinitis (Chronic) Medical History Right leg DVT (~2017) CVA (cerebral vascular accident) (~2014) Per pt. states residual deficiets Surgical History History of surgery on wrist S/P medial meniscus repair of left knee (07/13/19) History of colonoscopy (~11/2024) biopsies taken History of esophagogastroduodenoscopy (EGD) (~03/2021) History of total right knee replacement (TKR) (07/08/17) History of total left knee replacement (03/27/21) Status post foot surgery Status post repair of paraesophageal diaphragmatic hernia Status post vaginal hysterectomy History of appendectomy (~2009) Family History Mother , at 55 from [place] Heart disease COPD (chronic obstructive pulmonary disease) Myocardial infarction Father , Suicide at 50 Alcohol use disorder Sister COPD (chronic obstructive pulmonary disease) Sister COPD (chronic obstructive pulmonary disease) Heart disease Sister No problems noted. Sister No problems noted. Sister Alcohol use disorder Sister No problems noted. Brother Myocardial infarction Heart disease Brother No problems noted. Brother Alcohol use disorder Leukemia Son Congenital heart defect Son Hypertension Maternal Grandfather , 40s Heart disease Maternal Grandmother , 40s Heart disease Paternal Grandfather , 89 Alcohol use disorder Paternal Grandmother , from eclampsia No problems noted. Social History Smoking/Tobacco Use Status: Never Smoking risk assessment performed?: Yes Alcohol Intake: never Drug use: Never Substance use type: does not use Counseling given: No Caregiver/Support person: No Household members: spouse Housing: house Do you need help understanding health information?: Rarely Pets and animals: No Sexually active: No Do you think of yourself as: straight/heterosexual Current gender identity: female What is your relationship status?: How often do you talk on the phone with friends or family?: three or more times per week How often do you attend mormon or samaritan services?: 1-3 times per year Do you belong to any clubs or organized social groups?: no Panel score (0-1 are the most socially isolated patients): 2 Frequency: 1-2 times per week Crystal/Church: Anabaptism Seatbelt use: always Drive intox or ride w/intox scoop driver: No Do you feel safe at home: Yes Do you feel safe in your relationship?: Yes
--- NOTE | 2025-03-16 11:40 | PT.INIE ---
PT Notes Visit Reasons: Rib Fracture Physical Therapy Inpatient Initial Evaluation Date: 03/16/2025 Referring Doctor: Dr. Gant PT Orders: PT CONSULT: Due to limited ability Precautions: Telemetry, fall risk Patient Profile/Admitting Diagnosis: Laura is a 74-year-old female presented to the ED status post a 4 foot fall off a wheelchair ramp From a standing position on 03/14/2025. She presented to the ED on 03/14 after the fall with x-rays revealing fractures of the left 6th and 7th rib and right sixth rib which is mildly displaced. She was discharged home to then return on 03 15 secondary to increased pain not being managed. Imaging again showed multiple rib fractures and negative pneumothorax. Patient was admitted to MedSur unit for continuous oximetry and pain management. 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) Right PIP joint injection ~20 mg Depo Medrol: 04/28/23Generalized anxiety disorder (Chronic) Major depressive disorder, recurrent (Chronic) JESSICA (obstructive sleep apnea) (Chronic) No CPAPGERD (gastroesophageal reflux disease) (Chronic) Bilateral ovarian cysts (Chronic) Sigmoid diverticulosis (Chronic) Osteoarthritis of hands, bilateral (Chronic) Chronic right-sided low back pain without sciatica (Chronic) Osteoporosis (Chronic) Dysphagia (Chronic) Insomnia (Chronic) Hyperlipidemia (Chronic) Allergic rhinitis (Chronic) Medical History Right leg DVT (~2017) CVA (cerebral vascular accident) (~2014) Per pt. states residual deficiets Surgical History History of surgery on wrist S/P medial meniscus repair of left knee (07/13/19) History of colonoscopy (~11/2024) biopsies takenHistory of esophagogastroduodenoscopy (EGD) (~03/2021) History of total right knee replacement (TKR) (07/08/17) History of total left knee replacement (03/27/21) Status post foot surgery Status post repair of paraesophageal diaphragmatic hernia Status post vaginal hysterectomy History of appendectomy (~2009) Social History/Home Situation: Patient resides alone ramp to enter. Independent ambulation without assistive device independent ADLs. Son available to assist as needed and will be staying with her initially when she goes home Equipment Owned/DME: FWW from prior TKA surgery Subjective: Patient reports she feels much better than she did yesterday she feels her pain is being managed. She states she will be able to apply the pain patches on her own when she goes home. She reports she will be sleeping in a recliner/stand assist chair for some time until it is more comfortable to lay flat Objective: [] General Observation: Pt presents seated in chair with her son Edy visiting. Ecchymotic area noted to left anterior collins distal to tibial plateau. Telemetry in place. Mental Status: A+Ox4, able to follow instructions, cooperative , agreeable to participate in assessment Pain: B ribs none at rest, 2 /10 with transitions after medicated ROM: [] BUE: WNL BLE: WNL Strength: [] BUE: 4/5 LLE: 4/5 RLE: 5/5 Sensation: intact Bed Mobility/Transfers: [] Supine to sit independent with increased time Sit to stand independent Stand to sit independent Bed to chair independent without AD Gait: amb with FWW 600 feet reciprocal pattern Modified independent. Pt with no reports of increased pain, able to carry a full conversation throughout entire distance. ---amb 60 feet without AD independent no LOB. Balance: [] Static Sitting: Normal Dynamic Sitting: Good Static Standing: Normal Dynamic Standing: Good without UE support Special Tests: [] Mobility Limitations Standardized Measure [] [facility] AM-PAC 6 clicks Basic Mobility Inpatient Short Form: [] Raw Score: 22 CMS Score: 20.91% Informed Consent/Education: Patient instructed in purpose of PT consult. Assessment: Patient is a 74 yo female who presents with clinical signs and symptoms consistent with current/admitting diagnoses that have resulted to mobility limitations as demonstrated by the following impairment level findings: 1. pain in ribs Impairments are contributing to the following functional limitations: 1. Increased time to complete ADL d/t pain 2. decline in bed mobility d/t pain in ribs Now that patient's pain is managed and controlled patient able to demonstrate functional abilities at prior level of independence. With slight modifications to sleeping arrangements due to pain with transitions from supine to sit. Patient prefers and states she will sleep in her lift assist chair/recliner as it also is less discomforting when she breathes when she is upright. Patient is assessed as a low complexity based on the following: History: 74-year-old female with impairment level findings, functional limitations, and past medical history as indicated above Examination: Demonstrable impairment in mobility level with underlying impairments and functional limitations as documented above Presentation: stable Decision Making: low Goals: N/A. PT evaluation only Plan of Care/Treatment Plan: N/A. PT evaluation only DISCHARGE RECOMMENDATIONS: Home with no services when medically appropriate. No further PT indicated as an inpatient TREATMENT CODE/TIME:[id number]/ [id number] Thank you for the opportunity to participate in the care of this patient. Sheila Bonilla, PT [facility]
--- NOTE | 2025-03-16 12:59 | DSE_ITS ---
Date of service: 03/16/25 Time of Service: 12:59 DS: Diagnosis Discharge Diagnosis (1) Ribs, multiple fractures: Status: Acute Discharge Plan Disposition Patient Disposition: Home Condition: Stable Discharge Details Reason For Visit: Rib Fracture Admit Date/Time: 03/15/25 15:03 Admit Provider: Julius Gant Attending Provider: Julius Gant Primary Care Provider: Jose Ramos Recommendations for Follow Up Recommended tests to be ordered by follow up provider: Ensure pain controlled, ensure recovering to baseline after rib fractures. Home Meds and New Rx's Prescriptions: New hydrocodone-acetaminophen 5-325 mg tablet 1 tab PO Q6H PRN (Reason: pain) Qty: 10 0RF Rx Instructions: half to one tablet per dose Continued atorvastatin 40 mg tablet 40 mg PO DAILY Qty: 90 3RF doxycycline hyclate 100 mg capsule 100 mg PO BID Qty: 14 0RF Rx Instructions: Avoid sun exposure. Take with meal. Take 1 pill every 12 hours x 7 days multivitamin [Multi-Day] 1 EACH tablet 1 ea PO DAILY calcium carbonate-vitamin D3 1 EACH tablet 1 ea PO DAILY VITAMIN B COMPLEX 1 EACH tablet 1 ea PO DAILY Cane Qty: 1 0RF Rx Instructions: Please use cane for ambulation support and gait training due to weakness following total knee replacement. trazodone 50 mg tablet 50 - 100 mg PO QHS PRN (Reason: sleep) Qty: 180 3RF zoledronic [id number] [Reclast] 5 mg/100 mL piggyback See Rx Instructions IV ONCE Rx Instructions: 100 ml intravenously once; administer over at least 15 mins pantoprazole 40 mg tablet,delayed release (DR/EC) 40 mg PO DAILY Qty: 90 3RF paroxetine HCl 40 mg tablet 40 mg PO DAILY Qty: 90 3RF ascorbic acid (vitamin C) [Vitamin C] 1,000 mg Tablet 1,000 mg PO PRN PRN lidocaine [Lidoderm] 5 % adhesive patch,medicated 1 patch Topical Q24H Qty: 15 0RF Discontinued acetaminophen 500 mg tablet 1,000 mg PO TID Qty: 90 3RF Discharge Instructions Additional Instructions: Take ibuprofen 600mg scheduled three times a day while awake for pain relief from rib fractures. You may do this for 5 days, then use it as needed three times a day while awake for pain. Hydrocodone prescribed for severe pain only, start with half tablet every 6 hours, and if pain not well enough controlled, increase to 1 whole tablet per dose. Use on an as needed basis, do not schedule the hydrocodone. Lidocaine patches are prescribed and should be placed over the area of pain for 12 hours, then must be off for 12 hours before replacing with a new one. Use the incentive spirometer (breathing tool) ten breaths every hour while awake to help keep lungs expanded. If watching tv, use it during commercial breaks. After 3 days, you can use it less often. Activity:: Activity as Tolerated Equipment/Supplies:: Incentive spriometer Diet:: As Tolerated Discharge Orders Discharge Orders: Discharge Order (Routine); Ordered 03/16/25 Ordered By: Rosalia Messer DS: Summary Time Spent with Patient providing and/or coordinating discharge services: Less than 30 minutes Status at Discharge Functional status at discharge: uses cane/walker Overall status at discharge: patient is progressing back to baseline Mental Status: mental status grossly normal Speech and Movement: speech and movement normal Mood: congruent mood Affect: normal affect Exam Psych Mental Status: mental status grossly normal Speech and Movement: speech and movement normal Mood: congruent mood Affect: normal affect DS: Data Vitals/I&O Vitals and I&O: Vital Signs Temperature 96.8 F L 03/16/25 07:27 Temperature Source Temporal Artery Scan 03/16/25 07:27 Pulse 71 03/16/25 07:27 Pulse 73 03/15/25 15:40 Respiratory Rate 16 03/16/25 07:27 Respiratory Effort Normal 03/15/25 16:04 Respiratory Depth Shallow 03/15/25 16:04 Respiratory Pattern Normal 03/15/25 16:04 Blood Pressure 116/71 03/16/25 07:27 Blood Pressure Mean 86 03/16/25 07:27 Blood Pressure Position Sitting 03/15/25 13:27 Pulse Oximetry 98 03/16/25 08:31 Oxygen Delivery Method Room Air 03/16/25 08:31 Oxygen Flow Rate 0 03/16/25 08:31 Pain Level 5 03/15/25 19:54 Intake & Output 03/15/25 03/16/25 03/16/25 23:59 11:59 23:59 Intake Total 130 / 130 220 / 220 Output Total 150 / 150 Balance -20 / -20 220 / 220 Weight 73.1 kg Intake: IV 130 / 130 220 / 220 Output: Urine 150 / 150 Other: Urine Color Light Mimi Urine Appearance Clear Comment void x 1 BSC Data Completed and Pending Labs on day of discharge: Labs from last 24 hours 03/15/25 14:08 WBC 9.04 RBC 4.00 Hgb 11.8 Hct 35.3 L MCV 88 MCH 29.5 MCHC 33.4 RDW 11.8 Plt Count 186 MPV 9.1 Immature Gran % 0.3 Neutrophils % 69.9 Lymphocytes % 14.6 Monocytes % 14.5 Eosinophils % 0.6 Basophils % 0.1 Nucleated RBC % 0.0 Absolute Neutrophils 6.32 Absolute Lymphocytes 1.32 Absolute Monocytes 1.31 H Absolute Eosinophils 0.05 Absolute Basophils 0.01 Sodium 141 Potassium 4.0 Chloride 105 Carbon Dioxide 29.5 Anion Gap 6.5 BUN 18 Creatinine 0.8 Est GFR (CKD-EPI 2020) 76.31 Glucose 89 Calcium 8.9 Total Bilirubin 0.8 AST 35 ALT 30 Alkaline Phosphatase 47 Total Protein 6.1 L Albumin 3.5 ABO/Rh A Positive Antibody Screen NEGATIVE Additional Comments Additional comments: This is a 74-year-old female who was admitted to the hospital for pain control and pulmonary toileting after multiple bilateral rib fractures. She had uncontrolled pain at home that resulted in shallow breathing and hypoxia. She presented to the emergency department and was admitted for pain management. In the hospital she was given IV Tylenol and Toradol and IV Dilaudid. This helped to relieve her pain significantly. She was given lidocaine patches which also helped a lot. She used an incentive spirometer and was able to ambulate with a walker to her level of comfort. After hospital day 1 she and her son expressed comfort with transitioning toward home as long as medications were available to her to have at home to use for pain control. The patient had not been using any medications at home for pain control. We discussed transitioning to home with the use of lidocaine patches, scheduled ibuprofen, and [place] prescribed at low- dose as needed. We discussed all of the possible side effects of the medications and she and her son verbalized understanding of the instructions for use and the possible risks of the medications. She felt well and had not had hypoxia since initial presentation. She was discharged home in stable condition. 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) Right PIP joint injection ~20 mg Depo Medrol: 04/28/23 Generalized anxiety disorder (Chronic) Major depressive disorder, recurrent (Chronic) JESSICA (obstructive sleep apnea) (Chronic) No CPAP GERD (gastroesophageal reflux disease) (Chronic) Bilateral ovarian cysts (Chronic) Sigmoid diverticulosis (Chronic) Osteoarthritis of hands, bilateral (Chronic) Chronic right-sided low back pain without sciatica (Chronic) Osteoporosis (Chronic) Dysphagia (Chronic) Insomnia (Chronic) Hyperlipidemia (Chronic) Allergic rhinitis (Chronic) Medical History Right leg DVT (~2017) CVA (cerebral vascular accident) (~2014) Per pt. states residual deficiets Surgical History History of surgery on wrist S/P medial meniscus repair of left knee (07/13/19) History of colonoscopy (~11/2024) biopsies taken History of esophagogastroduodenoscopy (EGD) (~03/2021) History of total right knee replacement (TKR) (07/08/17) History of total left knee replacement (03/27/21) Status post foot surgery Status post repair of paraesophageal diaphragmatic hernia Status post vaginal hysterectomy History of appendectomy (~2009) Family History Mother , at 55 from [place] Heart disease COPD (chronic obstructive pulmonary disease) Myocardial infarction Father , Suicide at 50 Alcohol use disorder Sister COPD (chronic obstructive pulmonary disease) Sister COPD (chronic obstructive pulmonary disease) Heart disease Sister No problems noted. Sister No problems noted. Sister Alcohol use disorder Sister No problems noted. Brother Myocardial infarction Heart disease Brother No problems noted. Brother Alcohol use disorder Leukemia Son Congenital heart defect Son Hypertension Maternal Grandfather , 40s Heart disease Maternal Grandmother , 40s Heart disease Paternal Grandfather , 89 Alcohol use disorder Paternal Grandmother , from eclampsia No problems noted. Social History Smoking/Tobacco Use Status: Never Smoking risk assessment performed?: Yes Alcohol Intake: never Drug use: Never Substance use type: does not use Counseling given: No Caregiver/Support person: No Household members: spouse Housing: house Do you need help understanding health information?: Rarely Pets and animals: No Sexually active: No Do you think of yourself as: straight/heterosexual Current gender identity: female What is your relationship status?: How often do you talk on the phone with friends or family?: three or more times per week How often do you attend restorationism or restoration services?: 1-3 times per year Do you belong to any clubs or organized social groups?: no Panel score (0-1 are the most socially isolated patients): 2 Frequency: 1-2 times per week Crystal/Judaism: Taoist Seatbelt use: always Drive intox or ride w/intox truck driver helper: No Do you feel safe at home: Yes Do you feel safe in your relationship?: Yes Time Spent with Patient Time Spent with Patient: <45 minutes Time was spent: preparing to see the patient(eg.review tests), ordering medications,tests, procedures and counseling the patient
--- NOTE | 2025-03-16 15:17 | CHAPLAIN ---
Laura was up in a chair visiting with a granddaughter on her phone when I stopped in. Her son was with her and showed me the video from the their house of how Laura's knee gives out a bit and then she falls off the ramp, down to the ground a few feet, between the ramp and the house. She had her phone in her hand and was able to call a friend for help. She came to the ED by ambulance and then went home, and returned yesterday because of the rib pain. Laura said her pain is better controlled now and she's looking forward to spending some time with family members. She seems to be well supported by family.
== END 2025-03-16 14:28 | disposition home or self-care (01) | DRG 184 ==
LOC: ER 15:31 → MS 16:25
PROVIDERS: Admitting Provider Surgery; Emergency Provider General Practice; PCP Family Medicine; Visit Provider Surgery
DX: S22.43XA Multiple fractures of ribs, bilateral, initial encounter for closed fracture (principal); F33.9 Major depressive disorder, recurrent, unspecified; S22.088A Other fracture of T11-T12 vertebra, initial encounter for closed fracture; K21.9 Gastro-esophageal reflux disease without esophagitis; G47.33 Obstructive sleep apnea (adult) (pediatric); E78.00 Pure hypercholesterolemia, unspecified; Z86.73 Personal history of transient ischemic attack (TIA), and cerebral infarction without residual deficits; Z86.718 Personal history of other venous thrombosis and embolism; W10.2XXA Fall (on)(from) incline, initial encounter; F41.1 Generalized anxiety disorder; K57.30 Diverticulosis of large intestine without perforation or abscess without bleeding; R25.2 Cramp and spasm; M54.50 Low back pain, unspecified; R13.10 Dysphagia, unspecified; M81.0 Age-related osteoporosis without current pathological fracture; G47.00 Insomnia, unspecified; E78.5 Hyperlipidemia, unspecified; M19.042 Primary osteoarthritis, left hand; M19.041 Primary osteoarthritis, right hand; J30.9 Allergic rhinitis, unspecified; Z96.653 Presence of artificial knee joint, bilateral
CPT/HCPCS: 80053; 86850; 86900; 86901; 96374; 96375; 97161; 99222; 99238; 99285; 71045; 85025; 94760; J0131; J1171; J1644; J1885; J3490

== ENCOUNTER → 2025-04-07 09:58 | Outpatient (BNVA) | payer MEDICARE, SELFPAY | PROVIDERS: PCP Family Medicine; Referring Provider Family Medicine; Visit Provider Surgery | DX: S22.41XD Multiple fractures of ribs, right side, subsequent encounter for fracture with routine healing (principal); S22.42XD Multiple fractures of ribs, left side, subsequent encounter for fracture with routine healing; W19.XXXD Unspecified fall, subsequent encounter | CPT/HCPCS: 99213 ==